=== PATIENT | female | born 1945 | race Caucasian/White ===

== ENCOUNTER → 2018-03-09 13:05 | Outpatient (CLI) | payer MEDICARE, BC, SELFPAY ==
--- NOTE | 2018-03-09 | DI.MG.S_ITS ---
BILATERAL DIGITAL SCREENING MAMMOGRAM 3D/2D WITH CAD: 03/09/2018 CLINICAL: Routine screening. Comparison is made to exam dated: 06/30/2015 mammogram - [facility] The tissue of both breasts is heterogeneously dense. This may lower the sensitivity of mammography. Current study was also evaluated with a Computer Aided Detection (CAD) system. No significant masses, calcifications, or other findings are seen in either breast. There has been no significant interval change. IMPRESSION: NEGATIVE There is no mammographic evidence of malignancy. A 1 year screening mammogram is recommended. This exam was interpreted at Station ID: [id number]. NOTE: For mammograms, a report in lay terms will be sent to the patient. Approximately 15% of breast malignancies will not be visualized mammographically. In the management of a palpable breast mass, a negative mammogram must not discourage biopsy of a clinically suspicious lesion. Electronically Signed By: Kinga montanez/ryley:03/09/2018 16:21:47 letter sent: Normal Exam ACR BI-RADS Category 1: Negative [id number]
== END ==
PROVIDERS: PCP Family Medicine; Visit Provider Nurse Practitioner Family
DX: Z12.31 Encounter for screening mammogram for malignant neoplasm of breast (principal)
CPT/HCPCS: 77063; 77067

== ENCOUNTER 2019-01-16 12:42 | Emergency (ER) | payer MEDICARE, BC, SELFPAY ==
[2019-01-16 12:48] VITALS: BP 174/88; PULSE 80; RESP 14; TEMP 36.4; O2SAT 100
--- NOTE | 2019-01-16 12:53 | DI.RAD.S_ITS ---
PROCEDURE: XR KNEE RT 3V INDICATIONS: fall to bilat knees w/ pain. h/o replacement TECHNIQUE: 3 views of the knee were acquired. COMPARISON: [facility] CAITIE [facility]ila, XR KNEE ARTHRITIC SERIES , 07/17/2018, 8:54. FINDINGS: Bones: Postoperative changes are again evident related to a total right knee arthroplasty. The metallic prosthetic components appear to be properly seated and intact. No periprosthetic fractures or lucencies are evident. No suspicious osseous lesions are identified. Soft tissues: No joint effusion. No suspicious soft tissue calcifications. IMPRESSION: Unchanged appearance of the right knee arthroplasty. No fractures. Dictated by: Ryan Stallworth M.D. on 01/16/2019 at 12:29 Approved by: Ryan Stallworth M.D. on 01/16/2019 at 12:31
--- NOTE | 2019-01-16 12:53 | DI.RAD.S_ITS ---
PROCEDURE: XR KNEE LT 3V INDICATIONS: fall to bilat knees w/ pain. h/o replacement TECHNIQUE: 3 views of the knee were acquired. COMPARISON: [facility] CAITIE [facility], XR KNEE ARTHRITIC SERIES , 07/17/2018, 8:54. FINDINGS: Bones: Expected postoperative changes are again evident related to the total left knee arthroplasty. The metallic prosthetic components are properly positioned without evidence of periprosthetic fracture or lucency. No suspicious osseous lesions are evident. Soft tissues: No joint effusion. No suspicious soft tissue calcifications. IMPRESSION: Unchanged appearance of the total left knee arthroplasty. No fractures. Dictated by: Ryan Stallworth M.D. on 01/16/2019 at 12:31 Approved by: Ryan Stallworth M.D. on 01/16/2019 at 12:32
--- NOTE | 2019-01-16 12:54 | DI.RAD.S_ITS ---
PROCEDURE: XR HAND LT MIN 3V INDICATIONS: Left hand pain after fall. TECHNIQUE: 3 views of the hand(s) acquired. COMPARISON: [facility], CR, XR WRIST 3+ VIEWS BILATERAL, 12/13/2018, 11:10. FINDINGS: Bones: Expected postoperative changes of the distal radius are again evident. The orthopedic hardware is intact and unchanged. The alignment of the distal radius is also unchanged. No new or acute fractures of the left hand are evident. Prominent degenerative changes of the left hand are most pronounced involving the basal joint of the thumb, not significantly progressed. Soft tissues: No suspicious soft tissue calcifications. Moderate soft tissue swelling overlying the dorsal margins of the metacarpophalangeal joints is present on the lateral view. IMPRESSION: 1. No acute osseous abnormality of the left hand. 2. Degenerative and postoperative changes of the left hip have not significantly progressed. Dictated by: Ryan Stallworth M.D. on 01/16/2019 at 12:27 Approved by: Ryan Stallworth M.D. on 01/16/2019 at 12:29
--- NOTE | 2019-01-16 13:30 | DI.CT.S_ITS ---
PROCEDURE: CT HEAD/BRAIN WO CON INDICATIONS: glf, unsure what happened TECHNIQUE: Noncontrast 4.5 mm thick angled axial sections acquired from the foramen magnum to the vertex, with coronal and sagittal reformats. For radiation dose reduction, the following was used: automated exposure control, adjustment of mA and/or kV according to patient size. COMPARISON: None. FINDINGS: Image quality: Diagnostic. CSF spaces: Basal cisterns are patent. No extra-axial fluid collections. Ventricles are prominent in size with corresponding parenchymal volume loss. Brain: No midline shift. No intracranial masses or hemorrhage. Roy-white matter interface is normal. Subtle areas of low attenuation are seen within the periventricular and deep white matter of the supratentorial brain. Old basal ganglia areas of ischemia probably are present (left greater than right). Skull and face: Calvarium and visualized facial bones are intact, without suspicious lesions. Sinuses: Visualized sinuses and mastoids are clear. IMPRESSION: 1. No acute intracranial hemorrhage. 2. Moderate chronic small vessel ischemic changes and parenchymal volume loss. Dictated by: Ryan Stallworth M.D. on 01/16/2019 at 12:58 Approved by: Ryan Stallworth M.D. on 01/16/2019 at 13:04
[2019-01-16] MEDS: TET,DIPH,PERTUSS(ACELL),VAC/PF 0.5 ML SYRINGE IM (13:48)
[2019-01-16] MEDS: ACETAMINOPHEN 325 MG TABLET 650 MG PO (14:45)
--- NOTE | 2019-01-16 14:46 | ED.FALL ---
HPI - Fall <KAMRON Oneill - Last Filed: 01/16/19 20:35> General Chief Complaint: Fall Stated Complaint: fall, knee pain bilat, left hand and nose Time Seen by Provider: 01/16/19 13:20 Source: patient Mode of arrival: ambulatory Limitations: no limitations History of Present Illness HPI Narrative: The patient is a 73-year-old female nonsmoker with history of hypertension who presents with a chief complaint of a ground level fall. She states that she had a trip and fall. She complains of bilateral knee pain, and is very concerned as she has had bilateral knee replacements. She also complains of an abrasion of her nose. As well as left hand pain. She states she was able to ambulate in today. She did not lose consciousness. She states she thinks she hit her head, given the abrasion on her nose but she is not sure. She has not taken anything for the pain. She denies any neck or back pain. She denies any fevers nausea vomiting chest pain or shortness of breath. She is unsure of her last tetanus. Related Data Home Medications Medication Instructions Recorded Confirmed levothyroxine 150 mcg PO DAILY #0 12/19/12 01/16/19 Calcium 1 tab PO DAILY 01/16/19 01/16/19 Probiotic 1 cap PO DAILY 01/16/19 01/16/19 Vitamin C 1 tab PO DAILY 01/16/19 01/16/19 Vitamin D3 1 cap PO DAILY 01/16/19 01/16/19 abaloparatide [Tymlos] 1 dose SUBCUT DAILY 01/16/19 01/16/19 amlodipine 5 mg PO QPM 01/16/19 01/16/19 multivitamin 1 tab PO DAILY 01/16/19 01/16/19 Allergies Allergy/AdvReac Type Severity Reaction Status Date / Time ciprofloxacin [From CIPRO] Allergy Intermediate Verified 01/16/19 12:53 tetracycline [TETRACYCLINE] Allergy Intermediate Verified 01/16/19 12:53 epinephrine [EPINEPHRINE] Allergy Unknown Verified 01/16/19 12:53 Jhansyt-Osj-Xsl Reductase Allergy Unknown HEART Verified 01/16/19 12:53 Inhibitor ATTACK [[id number] REDUCTASE SYMPTOMS INHIBITOR] VALERIAN ROOT AdvReac Unknown Uncoded 10/04/17 12:26 Review of Systems <KAMRON Oneill - Last Filed: 01/16/19 20:35> Review of Systems GENERAL: Denies chills, fatigue, malaise, fever, sweats. HEENT: See HPI RESPIRATORY: Denies dyspnea, cough, wheezing, hemoptysis, sputum. CARDIOVASCULAR: Denies chest pain, palpitations, orthopnea, edema, GASTROINTESTINAL: Denies nausea, vomiting, abdominal pain, diarrhea, constipation, melena. : Denies dysuria, frequency, incontinence, hematuria, urinary retention. MUSCULOSKELETAL: See HPI SKIN: Denies rash, skin lesions, or other NEUROLOGIC: Denies weakness, headache, numbness, change in speech, confusion, seizures, incoordination. PSYCHIATRIC: No concerning psychosocial issues. 12 point review of systems is negative except for those stated above Exam <Franci CLAUDIA ToneyP- - Last Filed: 01/16/19 20:35> Narrative Exam Narrative: GENERAL: This is a well-nourished, well-developed patient, sitting on stretcher no acute distress HEAD: Atraumatic. Normocephalic. No temporal or scalp tenderness. EYES: Pupils equal round and reactive. Extraocular motions intact. No scleral icterus. No injection or drainage. ENT: Nose without bleeding, purulent drainage or septal hematoma. Throat without erythema, tonsillar hypertrophy or exudate. Uvula midline. Airway patent. NECK: Trachea midline. No JVD or lymphadenopathy. Supple, nontender, no meningeal signs. CARDIOVASCULAR: Regular rate and rhythm RESPIRATORY: Clear to auscultation. Breath sounds equal bilaterally. No wheezes, rales, or rhonchi. No cough. No increased respiratory effort. No accessory muscle use. GASTROINTESTINAL: Abdomen soft, non-tender, nondistended. No hepato-splenomegaly, or palpable masses. No guarding. Active bowel sounds all 4 quadrants. EXTREMITIES: Pain to palpation bilateral knees. Positive pedal pulses bilaterally. Pain to palpation left hand. No pain to palpation left wrist. No snuffbox tenderness. Capillary refill less than 2 seconds left fingers. BACK: Nontender without deformity or crepitance. No flank tenderness. No pain to CT or L-spine palpation NEURO: AOx3. Strength is equal upper and lower extremities bilaterally. SKIN: 0.5 cm abrasion noted on bridge of nose Initial Vital Signs Initial Vital Signs: Vital Signs Temperature 97.6 F 01/16/19 12:48 Pulse Rate 80 01/16/19 12:48 Respiratory Rate 14 01/16/19 12:48 Blood Pressure 174/88 H 01/16/19 12:48 Pulse Oximetry 100 01/16/19 12:48 <Franci Blanco DO - Last Filed: 01/23/19 08:22> Initial Vital Signs Initial Vital Signs: Vital Signs Temperature 97.6 F 01/16/19 12:48 Pulse Rate 80 01/16/19 12:48 Respiratory Rate 14 01/16/19 12:48 Blood Pressure 174/88 H 01/16/19 12:48 Pulse Oximetry 100 01/16/19 12:48 PFSH <KAMRON Oneill - Last Filed: 01/16/19 20:35> Surgical History (Updated 01/16/19 @ 20:31 by KAMRON Oneill) History of bilateral knee replacement (Acute) Social History Smoking Status: Never smoker Social History Smoking Status: Never smoker Scores <KAMRON Oneill - Last Filed: 01/16/19 20:35> GCS [place] coma scale eye opening: Spontaneous Daniel coma scale verbal response: Orientated [place] coma scale motor response: Obey commands Daniel coma scale total score: 15 Nexus Score for C-Spine Focal Neurologic deficit present: No Midline spinal tenderness present: No Altered level of conciousness present: No Intoxication present: No Distracting Injury Present: No Nexus Criteria for C-spine: 0 Course <KAMRON Oneill - Last Filed: 01/16/19 20:35> Orders Ordered: Discontinued Medications Acetaminophen (Tylenol) 650 mg PO NOW ONE Stop: 01/16/19 14:31 Last Admin: 01/16/19 14:45 Dose: 650 mg Diphtheria/Tetanus/Acell Pertussis (Adacel) 0.5 ml IM .ONCE ONE Stop: 01/16/19 13:31 Last Admin: 01/16/19 13:48 Dose: 0.5 ml Vital Signs - 8 hr 01/16/19 12:48 01/16/19 14:56 Temperature 97.6 F Pulse Rate 80 73 Respiratory Rate 14 20 Blood Pressure 174/88 H 139/78 Pulse Oximetry 100 100 <Franci Blanco DO - Last Filed: 01/23/19 08:22> Orders Ordered: Discontinued Medications Acetaminophen (Tylenol) 650 mg PO NOW ONE Stop: 01/16/19 14:31 Last Admin: 01/16/19 14:45 Dose: 650 mg Diphtheria/Tetanus/Acell Pertussis (Adacel) 0.5 ml IM .ONCE ONE Stop: 01/16/19 13:31 Last Admin: 01/16/19 13:48 Dose: 0.5 ml Vital Signs - 8 hr 01/16/19 12:48 01/16/19 14:56 Temperature 97.6 F Pulse Rate 80 73 Respiratory Rate 14 20 Blood Pressure 174/88 H 139/78 Pulse Oximetry 100 100 MDM - Fall <KAMRON Oneill - Last Filed: 01/16/19 20:35> Imaging Data CT scan - head: Radiologist's impression: Valerie Wang 73 F 1945 [place] [address] CT Scan Report Signed Patient: Valerie Wang FMR#: [id number] : 1945cct:[id number] Age/Sex: 73 / FDate of Service: 01/16/19 Loc: ED Accession Number: [id number] Procedure: CT head/brain wo con Ordering Provider: Franci Toney PROCEDURE: CT HEAD/BRAIN WO CON INDICATIONS: glf, unsure what happened TECHNIQUE: Noncontrast 4.5 mm thick angled axial sections acquired from the foramen magnum to the vertex, with coronal and sagittal reformats. For radiation dose reduction, the following was used: automated exposure control, adjustment of mA and/or kV according to patient size. COMPARISON: None. FINDINGS: Image quality: Diagnostic. CSF spaces: Basal cisterns are patent. No extra-axial fluid collections. Ventricles are prominent in size with corresponding parenchymal volume loss. Brain: No midline shift. No intracranial masses or hemorrhage. Roy-white matter interface is normal. Subtle areas of low attenuation are seen within the periventricular and deep white matter of the supratentorial brain. Old basal ganglia areas of ischemia probably are present (left greater than right). Skull and face: Calvarium and visualized facial bones are intact, without suspicious lesions. Sinuses: Visualized sinuses and mastoids are clear. IMPRESSION: 1. No acute intracranial hemorrhage. 2. Moderate chronic small vessel ischemic changes and parenchymal volume loss. Dictated by: Ryan Stallworth M.D. on 01/16/2019 at 12:58 Approved by: Ryan Stallworth M.D. on 01/16/2019 at 13:04 Hand x-ray: Radiologist's impression: Dawn Wangly Preeti 73 F [address] [address] XRay Report Signed Patient: Valerie Wang FMR#: [id number] : 1945cct:[id number] Age/Sex: 73 / FDate of Service: 01/16/19 Loc: ED Accession Number: [id number] Procedure: XR hand LT min 3V Ordering Provider: Franci Blanco D.O. PROCEDURE: XR HAND LT MIN 3V INDICATIONS: Left hand pain after fall. TECHNIQUE: 3 views of the hand(s) acquired. COMPARISON: [facility], , XR WRIST 3+ VIEWS BILATERAL, 12/13/2018, 11:10. FINDINGS: Bones: Expected postoperative changes of the distal radius are again evident. The orthopedic hardware is intact and unchanged. The alignment of the distal radius is also unchanged. No new or acute fractures of the left hand are evident. Prominent degenerative changes of the left hand are most pronounced involving the basal joint of the thumb, not significantly progressed. Soft tissues: No suspicious soft tissue calcifications. Moderate soft tissue swelling overlying the dorsal margins of the metacarpophalangeal joints is present on the lateral view. IMPRESSION: 1. No acute osseous abnormality of the left hand. 2. Degenerative and postoperative changes of the left hip have not significantly progressed. Dictated by: Ryan Stallworth M.D. on 01/16/2019 at 12:27 Approved by: Ryan Stallworth M.D. on 01/16/2019 at 12:29 Knee x-ray: Radiologist's impression: [address] [address] XRay Report Signed Patient: Dawn Wangly FMR#: [id number] : 4Acct:[id number] Age/Sex: 73 / FDate of Service: 01/16/19 Loc: ED Accession Number: [id number] Procedure: XR knee RT 3V Ordering Provider: Franci Blanco D.O. PROCEDURE: XR KNEE RT 3V INDICATIONS: fall to bilat knees w/ pain. h/o replacement TECHNIQUE: 3 views of the knee were acquired. COMPARISON: [facility] , XR KNEE ARTHRITIC SERIES , 07/17/2018, 8:54. FINDINGS: Bones: Postoperative changes are again evident related to a total right knee arthroplasty. The metallic prosthetic components appear to be properly seated and intact. No periprosthetic fractures or lucencies are evident. No suspicious osseous lesions are identified. Soft tissues: No joint effusion. No suspicious soft tissue calcifications. IMPRESSION: Unchanged appearance of the right knee arthroplasty. No fractures. Dictated by: Ryan Stallworth M.D. on 01/16/2019 at 12:29 Approved by: Ryan Stallworth M.D. on 01/16/2019 at 12:31 Knee x-ray left: Radiologist's impression: [place] [address] XRay Report Signed Patient: Valerie Wang R#: [id number] : 4Acct:[id number] Age/Sex: 73 / FDate of Service: 01/16/19 Loc: ED Accession Number: [id number] Procedure: XR knee LT 3V Ordering Provider: Franci Blanco D.O. PROCEDURE: XR KNEE LT 3V INDICATIONS: fall to bilat knees w/ pain. h/o replacement TECHNIQUE: 3 views of the knee were acquired. COMPARISON: [facility] , XR KNEE ARTHRITIC SERIES , 07/17/2018, 8:54. FINDINGS: Bones: Expected postoperative changes are again evident related to the total left knee arthroplasty. The metallic prosthetic components are properly positioned without evidence of periprosthetic fracture or lucency. No suspicious osseous lesions are evident. Soft tissues: No joint effusion. No suspicious soft tissue calcifications. IMPRESSION: Unchanged appearance of the total left knee arthroplasty. No fractures. Dictated by: Ryan Stallworth M.D. on 01/16/2019 at 12:31 Approved by: Ryan Stallworth M.D. on 01/16/2019 at 12:32 [facility] Narrative Medical decision making narrative: The patient is a 73-year-old female who presents after ground level fall with bilateral knee pain, hand pain as well as an abrasion to her nose. Given that she was unclear of whether not she hit her head combined with her age, I did obtain a head CT which was negative. She also had bilateral knee x-rays which were negative and a hand x-ray which were negative. She was given a tetanus in the emergency department. I cleared her C-spine through nexus criteria. The patient is very relieved that she has no obvious fractures on her knees. I discussed at length follow up with PCP. Discussed point back to the ER for any acute concerns such as confusion, saddle anesthesia, incontinence of bowel or incontinence of bladder. Patient has no questions or concerns upon discharge. Discharge Plan Departure Patient Disposition: Home Clinical Impression: Fall from ground level, Abrasion Acute knee pain Qualifiers: Laterality: bilateral Qualified Code(s): M25.561 - Pain in right knee Hand pain Qualifiers: Laterality: left Qualified Code(s): M79.642 - Pain in left hand Discharge Date/Time: 01/16/19 14:57 Interventions: ED Discharge Assessment Last Done: 01/16/19 14:56 Instructions: How To Perform RICE (Rest, Ice, Compress, Elevate), How to Prevent Falls, DI for Abrasion, DI for Knee Pain, DI for Hand Pain Activity Restrictions/Additional Instructions: Your head CT, hand x-ray and knee x-rays all came back normal today. Please use [id number] medications as needed and able Please follow up with primary care provider. I also suggest rest ice compression elevation. Please come back to the emergency department for any acute concerns such as confusion, chest pain shortness of breath concern of heart attack or stroke. Prescriptions: No Action levothyroxine 150 MCG tablet 150 mcg PO DAILY Qty: 0 RF: 0 amlodipine 5 mg tablet 5 mg PO QPM RF: 0 Tymlos 80 mcg (3,120 mcg/1.56 mL) pen injector 1 dose subcut DAILY RF: 0 multivitamin Tablet 1 tab PO DAILY RF: 0 Calcium 1 tab PO DAILY RF: 0 Probiotic 1 cap PO DAILY RF: 0 Vitamin C 1 tab PO DAILY RF: 0 Vitamin D3 1 cap PO DAILY RF: 0 Referrals: Jesse Fonseca MD [Primary Care Provider] - <Franci Blanco DO - Last Filed: 01/23/19 08:22> Cosign ED Attending Cosignature Attestation: I was immediately available in the department for consultation. This documentation has been reviewed and I agree with assessment and plan. Supervised by Franci Blanco DO
--- NOTE | 2019-01-16 14:49 | ED_ITS ---
HPI - Fall <KAMRON Oneill - Last Filed: 01/16/19 20:35> General Chief Complaint: Fall Stated Complaint: fall, knee pain bilat, left hand and nose Time Seen by Provider: 01/16/19 13:20 Source: patient Mode of arrival: ambulatory Limitations: no limitations History of Present Illness HPI Narrative: The patient is a 73-year-old female nonsmoker with history of hypertension who presents with a chief complaint of a ground level fall. She states that she had a trip and fall. She complains of bilateral knee pain, and is very concerned as she has had bilateral knee replacements. She also complains of an abrasion of her nose. As well as left hand pain. She states she was able to ambulate in today. She did not lose consciousness. She states she thinks she hit her head, given the abrasion on her nose but she is not sure. She has not taken anything for the pain. She denies any neck or back pain. She denies any fevers nausea vomiting chest pain or shortness of breath. She is unsure of her last tetanus. Related Data Home Medications Medication Instructions Recorded Confirmed levothyroxine 150 mcg PO DAILY #0 12/19/12 01/16/19 Calcium 1 tab PO DAILY 01/16/19 01/16/19 Probiotic 1 cap PO DAILY 01/16/19 01/16/19 Vitamin C 1 tab PO DAILY 01/16/19 01/16/19 Vitamin D3 1 cap PO DAILY 01/16/19 01/16/19 abaloparatide [Tymlos] 1 dose SUBCUT DAILY 01/16/19 01/16/19 amlodipine 5 mg PO QPM 01/16/19 01/16/19 multivitamin 1 tab PO DAILY 01/16/19 01/16/19 Allergies Allergy/AdvReac Type Severity Reaction Status Date / Time ciprofloxacin [From CIPRO] Allergy Intermediate Verified 01/16/19 12:53 tetracycline [TETRACYCLINE] Allergy Intermediate Verified 01/16/19 12:53 epinephrine [EPINEPHRINE] Allergy Unknown Verified 01/16/19 12:53 Sxdnqjn-Ayc-Lnk Reductase Allergy Unknown HEART Verified 01/16/19 12:53 Inhibitor ATTACK [[id number] REDUCTASE SYMPTOMS INHIBITOR] VALERIAN ROOT AdvReac Unknown Uncoded 10/04/17 12:26 Review of Systems <KAMRON Oneill - Last Filed: 01/16/19 20:35> Review of Systems GENERAL: Denies chills, fatigue, malaise, fever, sweats. HEENT: See HPI RESPIRATORY: Denies dyspnea, cough, wheezing, hemoptysis, sputum. CARDIOVASCULAR: Denies chest pain, palpitations, orthopnea, edema, GASTROINTESTINAL: Denies nausea, vomiting, abdominal pain, diarrhea, constipation, melena. : Denies dysuria, frequency, incontinence, hematuria, urinary retention. MUSCULOSKELETAL: See HPI SKIN: Denies rash, skin lesions, or other NEUROLOGIC: Denies weakness, headache, numbness, change in speech, confusion, seizures, incoordination. PSYCHIATRIC: No concerning psychosocial issues. 12 point review of systems is negative except for those stated above Exam <Franci CLAUDIA ToneyP- - Last Filed: 01/16/19 20:35> Narrative Exam Narrative: GENERAL: This is a well-nourished, well-developed patient, sitting on stretcher no acute distress HEAD: Atraumatic. Normocephalic. No temporal or scalp tenderness. EYES: Pupils equal round and reactive. Extraocular motions intact. No scleral icterus. No injection or drainage. ENT: Nose without bleeding, purulent drainage or septal hematoma. Throat without erythema, tonsillar hypertrophy or exudate. Uvula midline. Airway patent. NECK: Trachea midline. No JVD or lymphadenopathy. Supple, nontender, no meningeal signs. CARDIOVASCULAR: Regular rate and rhythm RESPIRATORY: Clear to auscultation. Breath sounds equal bilaterally. No wheezes, rales, or rhonchi. No cough. No increased respiratory effort. No accessory muscle use. GASTROINTESTINAL: Abdomen soft, non-tender, nondistended. No hepato- splenomegaly, or palpable masses. No guarding. Active bowel sounds all 4 quadrants. EXTREMITIES: Pain to palpation bilateral knees. Positive pedal pulses bilaterally. Pain to palpation left hand. No pain to palpation left wrist. No snuffbox tenderness. Capillary refill less than 2 seconds left fingers. BACK: Nontender without deformity or crepitance. No flank tenderness. No pain to CT or L-spine palpation NEURO: AOx3. Strength is equal upper and lower extremities bilaterally. SKIN: 0.5 cm abrasion noted on bridge of nose Initial Vital Signs Initial Vital Signs: Vital Signs Temperature 97.6 F 01/16/19 12:48 Pulse Rate 80 01/16/19 12:48 Respiratory Rate 14 01/16/19 12:48 Blood Pressure 174/88 H 01/16/19 12:48 Pulse Oximetry 100 01/16/19 12:48 <Franci Blanco DO - Last Filed: 01/23/19 08:22> Initial Vital Signs Initial Vital Signs: Vital Signs Temperature 97.6 F 01/16/19 12:48 Pulse Rate 80 01/16/19 12:48 Respiratory Rate 14 01/16/19 12:48 Blood Pressure 174/88 H 01/16/19 12:48 Pulse Oximetry 100 01/16/19 12:48 PFSH <KAMRON Oneill - Last Filed: 01/16/19 20:35> Surgical History (Updated 01/16/19 @ 20:31 by KAMRON Oneill) History of bilateral knee replacement (Acute) Social History Smoking Status: Never smoker Social History Smoking Status: Never smoker Scores <KAMRON Oneill - Last Filed: 01/16/19 20:35> GCS Daniel coma scale eye opening: Spontaneous [place] coma scale verbal response: Orientated Daniel coma scale motor response: Obey commands [place] coma scale total score: 15 Nexus Score for C-Spine Focal Neurologic deficit present: No Midline spinal tenderness present: No Altered level of conciousness present: No Intoxication present: No Distracting Injury Present: No Nexus Criteria for C-spine: 0 Course <KAMRON Oneill - Last Filed: 01/16/19 20:35> Orders Ordered: Discontinued Medications Acetaminophen (Tylenol) 650 mg PO NOW ONE Stop: 01/16/19 14:31 Last Admin: 01/16/19 14:45 Dose: 650 mg Diphtheria/Tetanus/Acell Pertussis (Adacel) 0.5 ml IM .ONCE ONE Stop: 01/16/19 13:31 Last Admin: 01/16/19 13:48 Dose: 0.5 ml Vital Signs - 8 hr 01/16/19 12:48 01/16/19 14:56 Temperature 97.6 F Pulse Rate 80 73 Respiratory Rate 14 20 Blood Pressure 174/88 H 139/78 Pulse Oximetry 100 100 <Franci Blanco DO - Last Filed: 01/23/19 08:22> Orders Ordered: Discontinued Medications Acetaminophen (Tylenol) 650 mg PO NOW ONE Stop: 01/16/19 14:31 Last Admin: 01/16/19 14:45 Dose: 650 mg Diphtheria/Tetanus/Acell Pertussis (Adacel) 0.5 ml IM .ONCE ONE Stop: 01/16/19 13:31 Last Admin: 01/16/19 13:48 Dose: 0.5 ml Vital Signs - 8 hr 01/16/19 12:48 01/16/19 14:56 Temperature 97.6 F Pulse Rate 80 73 Respiratory Rate 14 20 Blood Pressure 174/88 H 139/78 Pulse Oximetry 100 100 MDM - Fall <KAMRON Oneill - Last Filed: 01/16/19 20:35> Imaging Data CT scan - head: Radiologist's impression: Valerie Wang 73 [address] 1945 [place] [address] CT Scan Report Signed Patient: Valerie Wang FMR#: [id number] : 1945cct:[id number] Age/Sex: 73 / FDate of Service: 01/16/19 Loc: ED Accession Number: [id number] Procedure: CT head/brain wo con Ordering Provider: Franci Toney PROCEDURE: CT HEAD/BRAIN WO CON INDICATIONS: glf, unsure what happened TECHNIQUE: Noncontrast 4.5 mm thick angled axial sections acquired from the foramen magnum to the vertex, with coronal and sagittal reformats. For radiation dose reduction, the following was used: automated exposure control, adjustment of mA and/or kV according to patient size. COMPARISON: None. FINDINGS: Image quality: Diagnostic. CSF spaces: Basal cisterns are patent. No extra-axial fluid collections. Ventricles are prominent in size with corresponding parenchymal volume loss. Brain: No midline shift. No intracranial masses or hemorrhage. Roy-white matter interface is normal. Subtle areas of low attenuation are seen within the periventricular and deep white matter of the supratentorial brain. Old basal ganglia areas of ischemia probably are present (left greater than right). Skull and face: Calvarium and visualized facial bones are intact, without suspicious lesions. Sinuses: Visualized sinuses and mastoids are clear. IMPRESSION: 1. No acute intracranial hemorrhage. 2. Moderate chronic small vessel ischemic changes and parenchymal volume loss. Dictated by: Ryan Stallworth M.D. on 01/16/2019 at 12:58 Approved by: Ryan Stallworth M.D. on 01/16/2019 at 13:04 Hand x-ray: Radiologist's impression: Dawn Wangly Preeti 73 F [address] [address] XRay Report Signed Patient: Valerie Wang FMR#: [id number] : 1945cct:[id number] Age/Sex: 73 / FDate of Service: 01/16/19 Loc: ED Accession Number: [id number] Procedure: XR hand LT min 3V Ordering Provider: Franci Blanco D.O. PROCEDURE: XR HAND LT MIN 3V INDICATIONS: Left hand pain after fall. TECHNIQUE: 3 views of the hand(s) acquired. COMPARISON: [facility], , XR WRIST 3+ VIEWS BILATERAL, 12/13/2018, 11:10. FINDINGS: Bones: Expected postoperative changes of the distal radius are again evident. The orthopedic hardware is intact and unchanged. The alignment of the distal radius is also unchanged. No new or acute fractures of the left hand are evident. Prominent degenerative changes of the left hand are most pronounced involving the basal joint of the thumb, not significantly progressed. Soft tissues: No suspicious soft tissue calcifications. Moderate soft tissue swelling overlying the dorsal margins of the metacarpophalangeal joints is present on the lateral view. IMPRESSION: 1. No acute osseous abnormality of the left hand. 2. Degenerative and postoperative changes of the left hip have not significantly progressed. Dictated by: Ryan Stallworth M.D. on 01/16/2019 at 12:27 Approved by: Ryan Stallworth M.D. on 01/16/2019 at 12:29 Knee x-ray: Radiologist's impression: [address] [address] XRay Report Signed Patient: Dawn Wangly FMR#: [id number] : 4Acct:[id number] Age/Sex: 73 / FDate of Service: 01/16/19 Loc: ED Accession Number: [id number] Procedure: XR knee RT 3V Ordering Provider: Franci Blanco D.O. PROCEDURE: XR KNEE RT 3V INDICATIONS: fall to bilat knees w/ pain. h/o replacement TECHNIQUE: 3 views of the knee were acquired. COMPARISON: [facility] , XR KNEE ARTHRITIC SERIES , 07/17/2018, 8:54. FINDINGS: Bones: Postoperative changes are again evident related to a total right knee arthroplasty. The metallic prosthetic components appear to be properly seated and intact. No periprosthetic fractures or lucencies are evident. No suspicious osseous lesions are identified. Soft tissues: No joint effusion. No suspicious soft tissue calcifications. IMPRESSION: Unchanged appearance of the right knee arthroplasty. No fractures. Dictated by: Ryan Stallworth M.D. on 01/16/2019 at 12:29 Approved by: Ryan Stallworth M.D. on 01/16/2019 at 12:31 Knee x-ray left: Radiologist's impression: [place] [address] XRay Report Signed Patient: Valerie Wang R#: [id number] : 4Acct:[id number] Age/Sex: 73 / FDate of Service: 01/16/19 Loc: ED Accession Number: [id number] Procedure: XR knee LT 3V Ordering Provider: Franci Blanco D.O. PROCEDURE: XR KNEE LT 3V INDICATIONS: fall to bilat knees w/ pain. h/o replacement TECHNIQUE: 3 views of the knee were acquired. COMPARISON: [facility] , XR KNEE ARTHRITIC SERIES , 07/17/2018, 8:54. FINDINGS: Bones: Expected postoperative changes are again evident related to the total left knee arthroplasty. The metallic prosthetic components are properly positioned without evidence of periprosthetic fracture or lucency. No suspicious osseous lesions are evident. Soft tissues: No joint effusion. No suspicious soft tissue calcifications. IMPRESSION: Unchanged appearance of the total left knee arthroplasty. No fractures. Dictated by: Ryan Stallworth M.D. on 01/16/2019 at 12:31 Approved by: Ryan Stallworth M.D. on 01/16/2019 at 12:32 [facility] Narrative Medical decision making narrative: The patient is a 73-year-old female who presents after ground level fall with bilateral knee pain, hand pain as well as an abrasion to her nose. Given that she was unclear of whether not she hit her head combined with her age, I did obtain a head CT which was negative. She also had bilateral knee x-rays which were negative and a hand x-ray which were negative. She was given a tetanus in the emergency department. I cleared her C-spine through nexus criteria. The patient is very relieved that she has no obvious fractures on her knees. I discussed at length follow up with PCP. Discussed point back to the ER for any acute concerns such as confusion, saddle anesthesia, incontinence of bowel or incontinence of bladder. Patient has no questions or concerns upon discharge. Discharge Plan Departure Patient Disposition: Home Clinical Impression: Fall from ground level, Abrasion Acute knee pain Qualifiers: Laterality: bilateral Qualified Code(s): M25.561 - Pain in right knee Hand pain Qualifiers: Laterality: left Qualified Code(s): M79.642 - Pain in left hand Discharge Date/Time: 01/16/19 14:57 Interventions: ED Discharge Assessment Last Done: 01/16/19 14:56 Instructions: How To Perform RICE (Rest, Ice, Compress, Elevate), How to Prevent Falls, DI for Abrasion, DI for Knee Pain, DI for Hand Pain Activity Restrictions/Additional Instructions: Your head CT, hand x-ray and knee x-rays all came back normal today. Please use [id number] medications as needed and able Please follow up with primary care provider. I also suggest rest ice compression elevation. Please come back to the emergency department for any acute concerns such as confusion, chest pain shortness of breath concern of heart attack or stroke. Prescriptions: No Action levothyroxine 150 MCG tablet 150 mcg PO DAILY Qty: 0 RF: 0 amlodipine 5 mg tablet 5 mg PO QPM RF: 0 Tymlos 80 mcg (3,120 mcg/1.56 mL) pen injector 1 dose subcut DAILY RF: 0 multivitamin Tablet 1 tab PO DAILY RF: 0 Calcium 1 tab PO DAILY RF: 0 Probiotic 1 cap PO DAILY RF: 0 Vitamin C 1 tab PO DAILY RF: 0 Vitamin D3 1 cap PO DAILY RF: 0 Referrals: Jesse Fonseca MD [Primary Care Provider] - <Franci Blanco DO - Last Filed: 01/23/19 08:22> Cosign ED Attending Cosignature Attestation: I was immediately available in the department for consultation. This documentation has been reviewed and I agree with assessment and plan. Supervised by Franci Blanco DO
[2019-01-16 14:56] VITALS: BP 139/78; PULSE 73; RESP 20; O2SAT 100
== END 2019-01-16 14:57 | disposition home or self-care (01) ==
PROVIDERS: Emergency Provider Nurse Practitioner Family; PCP Family Medicine
DX: M25.561 Pain in right knee (principal); M25.562 Pain in left knee; M79.642 Pain in left hand; S00.31XA Abrasion of nose, initial encounter; S09.90XA Unspecified injury of head, initial encounter; W01.0XXA Fall on same level from slipping, tripping and stumbling without subsequent striking against object, initial encounter; Z23 Encounter for immunization
CPT/HCPCS: 70450; 73130; 73562; 90472; 99283; 99284; 90715

== ENCOUNTER → 2019-04-02 10:48 | Outpatient (CLI) | payer MEDICARE, BC, SELFPAY ==
--- NOTE | 2019-04-02 | DI.RAD.S_ITS ---
PROCEDURE: XR CHEST 2V INDICATIONS: BRONCHITIS/PERSISTING DRY COUGH/CHEST CONGESTION TECHNIQUE: 2 views of the chest were acquired. COMPARISON: None. FINDINGS: Surgical changes and devices: None. Lungs and pleura: Left basilar opacities are likely scars or atelectasis. No pleural effusions or pneumothorax. Mediastinum: Mediastinal contours are normal. Heart size is normal. Bones and chest wall: No suspicious bony abnormalities. Soft tissues appear unremarkable. IMPRESSION: Left basilar scars or atelectasis. Dictated by: Balaji Mejias M.D. on 04/02/2019 at 13:57 Approved by: Balaji Mejias M.D. on 04/02/2019 at 13:58
== END ==
PROVIDERS: PCP Family Medicine; Visit Provider Family Medicine
DX: J40 Bronchitis, not specified as acute or chronic (principal); R05 Cough; R09.89 Other specified symptoms and signs involving the circulatory and respiratory systems
CPT/HCPCS: 71046

== ENCOUNTER 2019-04-15 10:51 | Emergency (ER) | payer MEDICARE, BC, SELFPAY ==
[2019-04-15 11:02] VITALS: BP 146/75; PULSE 78; RESP 12; TEMP 36.6; O2SAT 99
--- NOTE | 2019-04-15 11:22 | ED_ITS ---
HPI - Skin/Abscess/Foreign Bdy General Chief complaint: Skin/Abscess/Foreign Body Stated complaint: issue with right lower leg,hot/swollen Time Seen by Provider: 04/15/19 11:06 Source: patient Mode of arrival: Ambulatory Limitations: no limitations History of Present Illness HPI narrative: 73-year-old female with known varicose veins here for evaluation of redness and warmth to her right lower extremity. Patient states that on Monday she went to her chiropractor. States that her chiropractor spent quite a bit of time ?massaging ?the veins in her lower extremities. She states that on Monday she noticed redness and warmth to the front of her right lower extremity. No pain. She states that she kept it elevated. She did put ice on it. Has been using topical cortisone cream because it was itching. She thinks that today it has actually improved from Monday. She denies any fevers. No breaks in the skin. Related Data Home Medications Medication Instructions Recorded Confirmed levothyroxine 150 mcg PO DAILY #0 12/19/12 04/15/19 Calcium 1 tab PO DAILY 01/16/19 01/16/19 Probiotic 1 cap PO DAILY 01/16/19 01/16/19 Vitamin C 1 tab PO DAILY 01/16/19 01/16/19 Vitamin D3 1 cap PO DAILY 01/16/19 01/16/19 abaloparatide [Tymlos] 1 dose SUBCUT 01/16/19 01/16/19 amlodipine 5 mg PO QPM 01/16/19 04/15/19 multivitamin 1 tab PO DAILY 01/16/19 01/16/19 albuterol sulfate 1 puff INHALATION PRN PRN 04/15/19 04/15/19 Previous Rx's Medication Instructions Recorded cephalexin [Keflex] 500 mg PO QID 5 Days #20 cap 04/15/19 Allergies Allergy/AdvReac Type Severity Reaction Status Date / Time ciprofloxacin [From CIPRO] Allergy Intermediate Verified 01/16/19 12:53 tetracycline [TETRACYCLINE] Allergy Intermediate Verified 01/16/19 12:53 epinephrine [EPINEPHRINE] Allergy Unknown Verified 01/16/19 12:53 Yhncwlm-Dme-Qsc Reductase Allergy Unknown HEART Verified 01/16/19 12:53 Inhibitor ATTACK [CTMOSMO-LGX-YPG REDUCTASE SYMPTOMS INHIBITOR] VALERIAN ROOT AdvReac Unknown Uncoded 10/04/17 12:26 Review of Systems Constitutional Constitutional: Denies fatigue and Denies fever(s) Musculoskeletal Musculoskeletal: Denies myalgias and Denies arthralgias Integumentary/Breasts Comments: Redness and warmth to right lower extremity Neurologic Neurologic: Denies behavioral changes Psychiatric Psychiatric: Denies behavioral changes Endocrine Endocrine: Denies fatigue Hematologic/Lymphatic Hematologic/Lymphatic: Denies easy bleeding and Denies easy bruising Patient History Medical History Hypothyroid (Acute) Surgical History (Updated 01/16/19 @ 20:31 [facility] History of bilateral knee replacement (Acute) Social History Smoking Status: Never smoker alcohol intake frequency: 0-2 drinks per day Substance Use Type: does not use Exam Initial Vital Signs Initial Vital Signs: Vital Signs Temperature 97.8 F 04/15/19 11:02 Pulse Rate 78 04/15/19 11:02 Respiratory Rate 12 04/15/19 11:02 Blood Pressure 146/75 H 04/15/19 11:02 Pulse Oximetry 99 04/15/19 11:02 Const General: cooperative and comfortable Orientation: alert, awake and oriented x3 HENMT Head: normal to inspection and normocephalic Resp Effort & Inspection: normal respiratory effort Auscultation: clear to auscultation bilaterally Cardio Rate: regular rate Rhythm: regular rhythm Pulses: dorsalis pedis present on the right GI Inspection: non-distended Palpation: soft Skin Other: Palm size area of redness to the anterior tibial mid avalos right lower extremity. It is warm to the touch. There is no blisters. No breaks in the skin. Neuro General: alert and awake Sensory Exam: no sensory deficits noted Extrem General: normal to inspection and capillary refill normal Psych Appearance: grossly normal and well kempt Course Vital Signs Vital signs: Vital Signs - 8 hr 04/15/19 11:02 Temperature 97.8 F Pulse Rate 78 Respiratory Rate 12 Blood Pressure 146/75 H Pulse Oximetry 99 MDM - Skin/Abscess/Foreign Bdy MDM Narrative Medical decision making narrative: Patient does have redness and warmth to the right anterior avalos however it is not tender. Patient is nontoxic appearing. She also thinks that has been improving over the past day with ice and topical cortisone cream. I did consider cellulitis however this could also be a dermatitis. Unsure if it was related to her chiropractic visit. Plan will be is to give her prescription for antibiotics however she is going to hold on these. The area was outlined with a skin marker. She is going to continue with ice and that topical steroid cream. If the area worsens or she develops systemic symptoms or the redness develops outside of the marking she is going to take the antibiotics as directed otherwise she will hold on filling them. She was given return precautions and follow-up instructions. She expressed understanding and agreement with plan. Discharge Plan Departure Patient Disposition: Home Clinical Impression: Dermatitis Instructions: Contact Dermatitis Activity Restrictions/Additional Instructions: You can shower like normal. Continue to use the topical steroid cream and also icing like we discussed. If the area extends outside of the markings start the antibiotics as directed. I do recommend you contact her primary provider. Return to the emergency department for any new or worsening symptoms Prescriptions: New cephalexin [Keflex] 500 mg capsule 500 mg PO QID 5 Days Qty: 20 RF: 0 No Action levothyroxine 150 MCG tablet 150 mcg PO DAILY Qty: 0 RF: 0 amlodipine 5 mg tablet 5 mg PO QPM RF: 0 Tymlos 80 mcg (3,120 mcg/1.56 mL) pen injector 1 dose subcut RF: 0 multivitamin Tablet 1 tab PO DAILY RF: 0 Calcium 1 tab PO DAILY RF: 0 Probiotic 1 cap PO DAILY RF: 0 Vitamin C 1 tab PO DAILY RF: 0 Vitamin D3 1 cap PO DAILY RF: 0 albuterol sulfate 90 mcg/actuation HFA aerosol inhaler 1 puff INHALATION PRN PRN (Reason: Shortness Of Breath) RF: 0 Referrals: Jesse Fonseca MD [Primary Care Provider] -
== END 2019-04-15 11:53 | disposition home or self-care (01) ==
PROVIDERS: Emergency Provider Emergency Medicine; PCP Family Medicine
DX: L30.9 Dermatitis, unspecified (principal)
CPT/HCPCS: 36415; 99282; 99283

== ENCOUNTER → 2019-05-22 10:07 | Outpatient (CLI) | payer MEDICARE, BC, SELFPAY ==
--- NOTE | 2019-05-22 | DI.MG.S_ITS ---
BILATERAL DIGITAL SCREENING MAMMOGRAM 3D/2D WITH CAD: 05/22/2019 Comparison is made to exams dated: 03/09/2018 mammogram - [facility] and 06/30/2015 mammogram - [facility] The tissue of both breasts is heterogeneously dense. This may lower the sensitivity of mammography. Current study was also evaluated with a Computer Aided Detection (CAD) system. There are benign calcifications in both breasts. No significant masses, calcifications, or other findings are seen in either breast. There has been no significant interval change. IMPRESSION: There is no mammographic evidence of malignancy. A 1 year screening mammogram is recommended. This exam was interpreted at Station ID: [id number]. NOTE: For mammograms, a report in lay terms will be sent to the patient. Approximately 15% of breast malignancies will not be visualized mammographically. In the management of a palpable breast mass, a negative mammogram must not discourage biopsy of a clinically suspicious lesion. Electronically Signed By: Danielito beckett/ryley:05/22/2019 12:06:34 letter sent: Normal Exam ACR BI-RADS Category 2: Benign Finding(s) [id number]
== END ==
PROVIDERS: PCP Family Medicine; Visit Provider Family Medicine
DX: Z12.31 Encounter for screening mammogram for malignant neoplasm of breast (principal)
CPT/HCPCS: 77063; 77067

== ENCOUNTER → 2019-05-24 09:11 | Outpatient (CLI) | payer MEDICARE, BC, SELFPAY ==
--- NOTE | 2019-05-24 | DI.MRI.S_ITS ---
PROCEDURE: MR CERVICAL SPINE WO CON INDICATIONS: Radiculopathy, cervical region TECHNIQUE: Noncontrast sagittal T1 spin echo and T2 fast spin echo, sagittal STIR, foraminal oblique sagittal T2 fast spin echo, and axial gradient echo or T2 fast spin echo through the cervical spine. COMPARISON: [facility], CT, CT HEAD/BRAIN WO CON, 01/16/2019, 13:40. FINDINGS: Image quality: Diagnostic, with note made of motion artifact. Alignment and Curvature: There is normal bony alignment. Bone Marrow: Marrow demonstrates normal overall signal. Spinal Cord: Visualized spinal cord has normal size and signal. No cerebellar tonsillar herniation. Paraspinous Soft Tissues: No paravertebral masses. Prevertebral soft tissues are normal in thickness. C2-C3: No significant abnormality is seen. C3-C4: The disc height is well-preserved. Loss of disc signal is seen at this level. Mild to moderate disc osteophyte complex is seen. Nzye-hx-ctbkjffj bilateral neural foraminal narrowing is seen. Nqoz-fv-nttgnnbe central canal narrowing is seen, with minimal mass effect upon the ventral spinal cord. C4-C5: The disc height is well-preserved. Loss of disc signal is seen at this level. Moderate generalized disc osteophyte complex is seen. There is prominent right-sided and at least moderate left-sided facet hypertrophy seen. There is moderate to prominent right-sided and moderate left-sided neural foraminal narrowing seen. Moderate central canal narrowing is seen. C5-C6: Mild loss of disc height is seen. Loss of disc signal is seen. Moderate generalized disc osteophyte complex is seen. Moderate to prominent facet hypertrophy is seen. There is at least moderate right-sided and moderate left-sided neural foraminal narrowing seen. Moderate central canal narrowing is seen, with associated mass effect upon the ventral spinal cord. C6-C7: The disc height is well-preserved. Loss of disc signal is seen at this level. Mild to moderate disc osteophyte complex is seen. Moderate facet joint hypertrophy is seen. Moderate bilateral neural foraminal narrowing is seen. Mild central canal narrowing is seen. C7-T1: Mild loss of disc height is seen. Loss of disc signal is seen. A mild degree of generalized disc osteophyte complex is seen. Mild facet joint hypertrophy is seen. Mild bilateral neural foraminal narrowing is seen. The central canal is widely patent. IMPRESSION: Multiple levels of cervical spine degenerative change are seen, which are most prominent at the C5-C6 level. Dictated by: Jones Martinez M.D. on 05/24/2019 at 10:17 Approved by: Jones Martinez M.D. on 05/24/2019 at 10:21
== END ==
PROVIDERS: PCP Family Medicine; Visit Provider Orthopaedic Surgery
DX: M47.22 Other spondylosis with radiculopathy, cervical region (principal)
CPT/HCPCS: 72141

== ENCOUNTER → 2020-07-29 17:00 | Outpatient (CLI) | payer MEDICARE, BC, SELFPAY ==
[2020-07-29] MEDS: COVID-19 VACC #1, MRNA(MOD) 100 MCG/0.5 ML VIAL IM (17:05)
== END ==
PROVIDERS: Visit Provider Internal Medicine
DX: Z23 Encounter for immunization (principal)
CPT/HCPCS: 0011A; 91301

== ENCOUNTER → 2020-08-27 09:23 | Outpatient (CLI) | payer MEDICARE, BC, SELFPAY ==
[2020-08-27] MEDS: COVID-19 VACC #2, MRNA(MOD) 100 MCG/0.5 ML VIAL IM (09:33)
== END ==
PROVIDERS: Visit Provider Internal Medicine
DX: Z23 Encounter for immunization (principal)
CPT/HCPCS: 0012A; 91301

== ENCOUNTER → 2020-11-05 17:39 | Outpatient (CLI) | payer OTHER, SELFPAY ==
--- NOTE | 2020-11-05 | DI.MRI.S_ITS ---
PROCEDURE: MR SHOULDER LT WO CON INDICATIONS: IMPINGEMENT OF LT SHOULDER TECHNIQUE: Noncontrast oblique coronal T2 fast spin echo with fat saturation, oblique sagittal T1 spin echo and T2 fast spin echo with fat saturation, axial T1 spin echo and T2 fast spin echo with fat saturation through the shoulder. COMPARISON: [facility], MR, SHOULDER WITHOUT CONTRAST, 04/24/2017, 13:37. FINDINGS: Rotator cuff: Large full-thickness tear involving the supraspinatus and infraspinatus tendons measuring approximately 2.9 cm in the AP dimension as seen on sagittal pulse sequences. Teres minor grossly intact. Subscapularis tendinopathy with partial thickness articular sided tear. Atrophy of the supraspinatus and infraspinatus muscles. Borderline atrophy of the subscapularis muscle. Bones and bursae: No bone marrow contusions or fractures. Moderate hypertrophic acromioclavicular joint degeneration. Mild to moderate glenohumeral osteoarthritis Acromion demonstrates conventional anatomy, without an os acromiale. Capsule and soft tissues: Labrum: Circumferential macerated probably degenerative tearing of the labrum.. Biceps: Severe long head biceps tendinopathy is present although no definite complete rupture. Rotator interval: Normal signal intensity. Coracohumeral ligament: Intact. IMPRESSION: Large full-thickness tear of the rotator cuff as above. Atrophy of the supraspinatus, infraspinatus and subscapularis muscles. Circumferential ill-defined tear of the labrum likely chronic/degenerative. Severe intra-articular segment long head biceps tendinopathy. Dictated by: Jonny Field M.D. on 11/06/2020 at 9:33 Approved by: Jonny Field M.D. on 11/06/2020 at 9:56
== END ==
LOC: MRI 18:02 → OR 11-06 15:08 → MRI 12-01 09:31
PROVIDERS: Referring Provider Orthopaedic Surgery; Visit Provider Orthopaedic Surgery
DX: M75.42 Impingement syndrome of left shoulder (principal); M75.122 Complete rotator cuff tear or rupture of left shoulder, not specified as traumatic; S43.402A Unspecified sprain of left shoulder joint, initial encounter; M62.512 Muscle wasting and atrophy, not elsewhere classified, left shoulder
CPT/HCPCS: 73221

== ENCOUNTER 2020-12-08 10:10 | Emergency (ER) | payer OTHER, SELFPAY ==
[2020-12-08 10:41] VITALS: BP 172/93; PULSE 88; RESP 15; TEMP 36.7; O2SAT 97; BMI 26.2
--- NOTE | 2020-12-08 10:46 | DI.RAD.S_ITS ---
PROCEDURE: XR SHOULDER RT MIN 2V INDICATIONS: right shoulder pain today TECHNIQUE: 3 views of the shoulder were acquired. COMPARISON: None. FINDINGS: Bones: No fractures or dislocations. Moderate acromioclavicular joint and glenohumeral joint osteoarthritic changes are seen. No suspicious bony lesions. Likely intraosseous cyst formations in greater tuberosity of humeral head are also noted. Visualized ribs appear intact. Soft tissues: Small calcification in lateral soft tissue along proximal humeral shaft is seen likely represent old injury. IMPRESSION: No acute right shoulder fracture or dislocation. Moderate right shoulder joint osteoarthritis. Subcortical cyst formation in greater tuberosity of humeral head which can be seen associated with rotator cuff tendon tear. Dictated by: Federico Ellison M.D. on 12/08/2020 at 11:16 Approved by: Federico Ellison M.D. on 12/08/2020 at 11:18
--- NOTE | 2020-12-08 10:51 | PC.NURSE ---
pt states she has limited ROM.
--- NOTE | 2020-12-08 11:58 | ED_ITS ---
HPI - Extremity Injury (Upper) General Chief Complaint: Extremity Injury, Upper Stated Complaint: RT SHOULDER PAIN. REF BY Time Seen by Provider: 12/08/20 11:57 Source: patient and family Mode of arrival: Ambulatory Limitations: no limitations History of Present Illness HPI narrative: 75-year-old female emergency department complaint of a pop in her right shoulder and pain with difficulty movement while putting on short this morning. She states she is reaching upwards when doing this. She states she had immediate pain and could not really move her shoulder at all. As she has been here in the department she started to have some increasing range of motion. She does have increased pain of or the shoulder and reading a little bit down her arm. She denies any numbness, tingling or weakness. Patient has had a history of rotator cuff tear on that side in the past. She states she is currently being treated for left shoulder rotator cuff tear and seeing PT regularly. Patient states she has but does follow with Dr. Lainez regularly. She has had multiple orthopedic injuries including both of her knees replaced, her right wrist was question she has 2 rods as well as 13 screws and she also has hardware in her left wrist. Patient states she is very sensitive to oral narcotics and they often make her vomit. She has follow-up with Dr. Lainez on the 24 of December. She denies any other daily medications besides levothyroxine. Related Data Home Medications Medication Instructions Recorded Confirmed levothyroxine 150 mcg PO DAILY #0 12/19/12 04/15/19 Calcium 1 tab PO DAILY 01/16/19 01/16/19 Probiotic 1 cap PO DAILY 01/16/19 01/16/19 Vitamin C 1 tab PO DAILY 01/16/19 01/16/19 Vitamin D3 1 cap PO DAILY 01/16/19 01/16/19 abaloparatide [Tymlos] 1 dose SUBCUT 01/16/19 01/16/19 amlodipine 5 mg PO QPM 01/16/19 04/15/19 multivitamin 1 tab PO DAILY 01/16/19 01/16/19 albuterol sulfate 1 puff INHALATION PRN PRN 04/15/19 04/15/19 Allergies Allergy/AdvReac Type Severity Reaction Status Date / Time ciprofloxacin [From CIPRO] Allergy Intermediate Verified 12/08/20 10:46 tetracycline [TETRACYCLINE] Allergy Intermediate Verified 12/08/20 10:46 epinephrine [EPINEPHRINE] Allergy Unknown Verified 12/08/20 10:46 Pzpxnlu-Gsh-Ofs Reductase Allergy Unknown HEART Verified 12/08/20 10:46 Inhibitor ATTACK [YOEFUOS-CLX-DRS REDUCTASE SYMPTOMS INHIBITOR] [facility]OT AdvReac Unknown Uncoded 10/04/17 12:26 Review of Systems Review of Systems ROS Unobtainable: All systems reviewed & are unremarkable except as noted in HPI and below Patient History Medical History (Updated 12/08/20 @ 12:59 by Franci Blanco DO) Hypothyroid Surgical History History of bilateral knee replacement Social History Smoking Status: Never smoker Smoking Status: Never smoker alcohol intake frequency: 3 or more drinks per day Substance Use Type: does not use Exam Narrative Exam Narrative: GENERAL: Alert and oriented x three, well-nourished female in mild distress. HEENT: Head normocephalic, atraumatic, EOMI, pupils reactive, face symmetric, moist mucous membranes NECK: Supple, full range of motion CARDIOVASCULAR: Regular rate and rhythm without murmurs, rubs or gallops. RESPIRATORY: Breath sounds equal bilaterally, no wheezes rales or rhonchi. EXTREMITIES: Normal range of motion of the left upper extremity, patient has decreased movement of the right, she is able to lift about 90? but because quite painful, she is also able flex to about 90? as well at the shoulder, she has normal range of motion at the wrist, fingers. She can fully flex extend at the elbow but is quite uncomfortable. Patient has good pipe organ mechanic equal bilaterally, she has equal strength push and pull but has increased pain with full. Patient does not have any obvious deformity. She does have some tenderness over the proximal biceps tendon but it is palpable on exam. She does not have any obvious changes to the biceps muscle or deformity comparison to the other side. There is no warmth, erythema, ecchymosis or obvious deformity in the left compared to right shoulder., no clubbing or edema. Neurovascularly intact. 2+ radial pulse bilaterally. Cap refill less than 2 seconds in all 5 fingers with normal sensation. NEUROLOGICAL: Cranial nerves II through XII grossly intact. Moving all extremities SKIN: Warm, dry, no petechiae, no rashes or lesions. Initial Vital Signs Initial Vital Signs: Vital Signs Temperature 98.1 F 12/08/20 10:41 Pulse Rate 88 12/08/20 10:41 Respiratory Rate 15 12/08/20 10:41 Blood Pressure 172/93 H 12/08/20 10:41 Pulse Oximetry 97 12/08/20 10:41 Course Orders Ordered: ED Orders 12/08/20 10:46 XR shoulder RT min 2V Stat Discontinued Medications Ketorolac Tromethamine (Ketorolac 30 Mg/Ml Vial) 30 mg IM NOW ONE Stop: 12/08/20 12:59 Last Admin: 12/08/20 13:07 Dose: 30 mg Documented by: JACOB Vital Signs Vital signs: Vital Signs - 8 hr 12/08/20 13:16 Pulse Rate 80 Respiratory Rate 16 Blood Pressure 160/85 H Pulse Oximetry 98 MDM - Extremity Injury (Upper) Imaging Data Extremity x-ray #1: Radiologist's Impression: [address] [id number] ReportSigned Patient: Valerie Wang FMR#: [id number]: 4Acct:[id number]/Sex: 75 / FDate of Service: 12/08/20Loc: EDAccession Number: [id number] Procedure: XR shoulder RT min 2V Ordering Provider: Franci Blanco D.O. PROCEDURE: XR SHOULDER RT MIN 2V INDICATIONS: right shoulder pain today TECHNIQUE: 3 views of the shoulder were acquired. COMPARISON: None. FINDINGS: Bones: No fractures or dislocations. Moderate acromioclavicular joint and glenohumeral joint osteoarthritic changes are seen. No suspicious bony lesions. Likely intraosseous cyst formations in greater tuberosity of humeral head are also noted. Visualized ribs appear intact. Soft tissues: Small calcification in lateral soft tissue along proximal humeral shaft is seen likely represent old injury. IMPRESSION: No acute right shoulder fracture or dislocation. Moderate right shoulder joint osteoarthritis. Subcortical cyst formation in greater tuberosity of humeral head which can be seen associated with rotator cuff tendon tear. Dictated by: Federico Ellison M.D. on 12/08/2020 at 11:16 Approved by: Federico Ellison M.D. on 12/08/2020 at 11:18 MDM Narrative Medical decision making narrative: 75-year-old female with a pop sensation and increased pain and decreased movement of her right shoulder this morning while putting on her shirt. Patient does have some slightly decreased strength and does have some decreased range of motion although it has improved since the initial injury earlier today. Patient has had prior rotator cuff tear in that shoulder in the past. She follows with Dr. Lainez regularly for multiple orthopedic issues on and was placed in a sling, return precautions and short course of pain medication. Patient states she does not tolerate narcotics very well so NSAIDs were given preferentially. Discharge Plan Departure Patient Disposition: Home Clinical Impression: Injury of right shoulder Qualifiers: Encounter type: initial encounter Qualified Code(s): S49.91XA - Unspecified injury of right shoulder and upper arm, initial encounter Activity Restrictions/Additional Instructions: Follow up with Dr. Lainez, call the office to see if they would like you to be seen before your December 24 follow up appointment. You may take ibuprofen up to 600 mg every 6 hours needed for pain and/or tylenol up to 1000mg every 8 hours as needed for pain. Make sure you continue with gentle range of motion with your shoulder to prevent frozen shoulder. You may increase your activity as tolerated. No sudden pulling or jerking motions, only light weights as tolerated. Less than 10 pounds. Splint Care: Keep splint clean and dry. Elevated affected body part to decrease swelling. OK to use ice pack on the affected body part. Use for 15-20 minutes each time, for 5-6x per day. If you develop worsening pain, numbness, tingling, discoloration of the affected body part, adjust the sling, and either see your doctor for an urgent re-assessment, or return to the Emergency Department. Return to the Emergency Department for any new or worsening symptoms. Prescriptions: No Action levothyroxine 150 MCG tablet 150 mcg PO DAILY Qty: 0 RF: 0 amlodipine 5 mg tablet 5 mg PO QPM RF: 0 Tymlos 80 mcg (3,120 mcg/1.56 mL) pen injector 1 dose subcut RF: 0 multivitamin Tablet 1 tab PO DAILY RF: 0 Calcium 1 tab PO DAILY RF: 0 Probiotic 1 cap PO DAILY RF: 0 Vitamin C 1 tab PO DAILY RF: 0 Vitamin D3 1 cap PO DAILY RF: 0 albuterol sulfate 90 mcg/actuation HFA aerosol inhaler 1 puff INHALATION PRN PRN (Reason: Shortness Of Breath) RF: 0 Referrals: Oj Lainez MD [Physician] -
[2020-12-08] MEDS: KETOROLAC 30 MG/ML VIAL IM (13:07)
[2020-12-08 13:16] VITALS: BP 160/85; PULSE 80; RESP 16; O2SAT 98
== END 2020-12-08 13:23 | disposition home or self-care (01) ==
PROVIDERS: Emergency Provider Emergency Medicine
DX: S49.91XA Unspecified injury of right shoulder and upper arm, initial encounter (principal)
CPT/HCPCS: 73030; 96372; 99283; 99284; J1885

== ENCOUNTER → 2021-03-05 10:40 | Outpatient (CLI) | payer OTHER, SELFPAY ==
[2021-03-05 14:08] LABS: COVID19 -Nasal RAPID Negative (Negative)
== END ==
PROVIDERS: Visit Provider Nurse Practitioner
DX: Z20.822 Contact with and (suspected) exposure to COVID-19 (principal)
CPT/HCPCS: 87635; C9803

== ENCOUNTER 2021-03-08 08:17 | Day surgery (SDC) | payer OTHER, SELFPAY ==
[2021-03-03 09:01] VITALS: BMI 26.4
[2021-03-08] VITALS (17 sets, daily range): BP systolic 105–169; BP diastolic 48–83; PULSE 75–100; RESP 11–17; TEMP 36.1–37.2; O2SAT 92–100; BMI 26.4
[2021-03-08] MEDS: LACTATED RINGERS 1,000 ML 42 ML IV ×2 (09:26→12:48)
[2021-03-08] MEDS: ACETAMINOPHEN 325 MG TABLET 975 MG PO (09:35)
[2021-03-08] MEDS: CELECOXIB 200 MG CAPSULE PO (09:36)
[2021-03-08] MEDS: PREGABALIN 75 MG CAPSULE PO (09:36)
--- NOTE | 2021-03-08 09:46 | PM.PREOP ---
Pre-operative Note COVID-19 COVID-19 status: Negative Result date/Date tested (Pos, Neg/Pending): 03/05/21 Interval Note History & Physical reviewed/Exam performed by Physician: Yes Changes to H&P: No
--- NOTE | 2021-03-08 09:56 | PM.OP.1 ---
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 Radiographic studies have revealed changes consistent with a massive rotator cuff tear. They have elected to proceed with reverse total shoulder replacement after discussion of the risks benefits and alternatives. Risks discussed included but were not limited to: Failure to improve, instability, infection, nerve damage, deep venous thrombosis, pulmonary embolism, stroke, coma, myocardial infarction and . Surgeon: Oj Lainez Director Mobile [employer]: Rudy Arreola Click Yes if Unassisted: No Anesthesia Type: General, Peripheral nerve block and Local Operative Notes Findings: Massive irreparable rotator cuff tear. In addition the bone was soft and unfortunately an anterior inferior glenoid fracture occurred during use of the glenoid Reamer. Closure Type: primary Specimen(s): none sent Prosthetic devices, grafts, tissues, transplants, or devices: DJO RSP reverse total shoulder system with a 30 mm base plate, 2 locking screws of 5.0 mm diameter measuring 26 and 18 mm in length, a 32- 4 mm RSP glenoid head with retaining screw, a humeral stem with a small shell with a 12 mm diameter and a small socket insert 32 mm neutral E plus humeral cup. Applied: implant(s) Estimated Blood Loss (mL): 200 Blood products transfused: none Procedure in detail: The patient was seen in the preoperative area where they identified the left shoulder as the operative site and this was marked with my initials. They received preoperative antibiotics and underwent the induction of an interscalene block. They were taken to the operating room and placed on the operating room table in a supine position with the underwent the induction of a general anesthetic. There were then repositioned in the ?beach chair? position using a dedicated positioner. All pressure points were well padded. The knees were slightly bent to prevent tension on the sciatic nerves. A school business manager-out was performed. The left arm was prepared from the fingertips to the base of the neck with ChloraPrep in the usual fashion and draped through sterile drapes. An approximately 15 cm incision was created starting at the clavicle just above the coracoid and going to the deltoid insertion. The deltopectoral interval was used to access the shoulder taking the vein to the lateral side. The vein was protected throughout the case. The upper 1 cm of the pectoralis major was released. The biceps tendon was identified and used as a guide to releasing the remaining subscapularis. The biceps itself was tenodesed over the pectoralis tendon using a suture. The subscapularis was tagged for later repair. The shoulder was dislocated and a proximal humeral osteotomy performed using an extramedullary guide. A proximal humeral protector was then placed. Retractors were placed access the glenoid. A 360 degree release was performed of the remaining subscapularis with care being taken to protect the axillary nerve. The soft tissues were removed circumferentially around the glenoid. The guide was used to drill the guide hole in the center of the inferior glenoid. The tap was placed and used as a guide for the reamer. During reaming, an anterior inferior glenoid fracture occurred encompassing approximately a 3rd of the surface area of the glenoid. Tap was then removed and the glenoid base plate inserted. The peripheral locking screws were then placed through the appropriate guide in the superior and posterior screw holes which were on intact bone. This gave good fixation of the base plate. A trial glenoid head was applied. We then turned our attention to the humerus. The proximal humeral protector was removed. Cylindrical reamers were used to size the canal. We stopped at a 12 mm Reamer as a size 14 requires a standard humeral cup size and the patient is of small stature. Broaching was then performed beginning with a small broach and working up until a line to line fit with the reamer was obtained. The guide for the proximal metaphyseal reamer was then applied and the metaphysis was reamed appropriately. The trial metaphyseal portion of the body was then applied to the broach. Trial reductions were performed and the size of the glenoid head and the cup were optimized. Stability was checked in maximal internal and external rotation and range of motion was checked to allow access to the top of the head, internal rotation to an excess of 50? in the ?scarecrow position? and the ability to reach the groin. The appropriate final prosthetic components were then opened. The glenoid head was impacted into position and checked for rotational and axial stability before placing the set screw. The humeral prosthetic was then impacted into position after using morselized humeral head as bone graft in the canal. Stem fixation was firm. The humeral cup was placed. The joint was relocated and irrigated. The subscapularis was repaired to the lesser tuberosity using [id number] # 2 Ethibond sutures. The deltopectoral interval was reapproximated with 0 Vicryl. Subcutaneous layer was closed with interrupted 3-0 Vicryl and skin with a running 3 0 V lock suture and Dermabond. Subcutaneous tissues were then infiltrated with Exparel for postoperative pain control. An Aquacel Ag dressing was applied and the patient's arm was placed in a sling. The patient was then transferred to the recovery room in good condition having tolerated the procedure well. Complications: other (Anterior inferior glenoid fracture with use of the Reamer.) Post-operative Condition: stable Disposition: PACU Plan for aftercare: The patient will be allowed to use their arm in front of the body below shoulder level lifting no more than 1 lb for 6 weeks. We will then progress range of motion with physical therapy.
--- NOTE | 2021-03-08 10:00 | DI.RAD.S_ITS ---
PROCEDURE: XR SHOULDER RT 1V INDICATIONS: POST OP TOTAL SHOULDER TECHNIQUE: 1 views of the shoulder were acquired. COMPARISON: [facility], , XR SHOULDER RT MIN 2V, 12/08/2020, 10:42. FINDINGS: Bones: Expected immediate postoperative appearance, status post total left shoulder arthroplasty. No evidence of hardware failure or loosening. No fractures or dislocations. No suspicious bony lesions. Visualized ribs appear intact. Soft tissues: No suspicious soft tissue calcifications. IMPRESSION: Expected immediate postoperative appearance, status post total left shoulder arthroplasty. Dictated by: Efren Mariee M.D. on 03/08/2021 at 16:01 Approved by: Efren Mariee M.D. on 03/08/2021 at 16:02
[2021-03-08] MEDS: CEFAZOLIN 1 GM VIAL 2 GM IV (11:25)
[2021-03-08] MEDS: TRANEXAMIC ACID 1,000 MG VIAL 1000 MG INJ ×2 (11:38→13:01)
--- NOTE | 2021-03-08 11:45 | SUR.OPER ---
Beach chair with Schlein shoulder positioner. Lower body on padded OR bed. Head in foam padded head cradle, secured with straps. Non-operative arm secured <90 degrees abduction. Pillow under knees. Safety belt at thigh. Cloth tape over blanket over lower legs.
[2021-03-08] MEDS: BUPIVACAINE LIPOSOME 266 MG/20 ML VIAL INJ (12:03)
--- NOTE | 2021-03-08 13:58 | SUR.PHASEI ---
[id number] Lainez notified that patient complains of seeing black shapes dancing around the edges of the eyes, and when eyes are closed they are dancing with red. No new orders at this time. Pt with pupils equal, reactive to light, peripheral vision intact.
--- NOTE | 2021-03-08 14:07 | SUR.PHASEI ---
1316 Patient to PACU in bed with Dr Allen and RN after general anesthesia breathing unassisted on room air.
--- NOTE | 2021-03-08 14:10 | SUR.PHASEI ---
Dr Allen at bedside evaluating and talking with patient.
[2021-03-08] MEDS: LACTATED RINGERS 1,000 ML 100 ML IV (14:48)
[2021-03-08] MEDS: OXYCODONE IR 5 MG TABLET PO (17:52)
[2021-03-08] MEDS: AMLODIPINE 5 MG TABLET PO (17:52)
[2021-03-08] MEDS: ONDANSETRON 4 MG/2 ML INJ IV (19:17)
[2021-03-08] MEDS: DOCUSATE 100 MG CAPSULE PO (20:09)
[2021-03-09] MEDS: LACTATED RINGERS 1,000 ML 100 ML IV (00:26)
[2021-03-09] MEDS: OXYCODONE IR 5 MG TABLET PO ×3 (00:55→08:20)
--- NOTE | 2021-03-09 02:41 | PC.NURSE ---
Patient is alert and oriented with some minor forgetfulness. Breath sounds CTA with RA sat of 94%. HRR. Denied nausea. BT present and is passing flatus. Denied dysuria, frequency or urgency with urination. Is able to move self in bed and up to bathroom with SBA. Aquacel dressing to left shoulder is CDI; arm is in sling. Has good radial pulse and cap refill. Denies any tingling/numbness. Complained of 6/10 pain and ice applied and medicated with oxycodone and is now asleep. Wearing bilateral calf SCD's. Fall risk score is moderate; bed alarm is activated.
[2021-03-09 04:51] VITALS: BP 104/66; PULSE 80; RESP 18; TEMP 35.9; O2SAT 93
[2021-03-09 05:31] LABS: Hemoglobin 11.6 g/dL (12.0-16.0)
[2021-03-09 07:21] VITALS: BP 137/65; PULSE 80; RESP 16; TEMP 36.4; O2SAT 97
[2021-03-09] MEDS: SYNTHROID 137 MCG PO (08:19)
[2021-03-09] MEDS: CHOLECALCIFEROL (VITAMIN D3) 400 UNIT TABLET PO (08:20)
[2021-03-09] MEDS: MULTIVITAMIN 1 TABLET 1 TAB PO (08:20)
[2021-03-09] MEDS: LACTOBACILLUS ACIDOPHILUS TABLET 1 EACH PO (08:20)
[2021-03-09] MEDS: ASCORBIC ACID 500 MG TABLET 1000 MG PO (08:20)
[2021-03-09] MEDS: DOCUSATE 100 MG CAPSULE PO (08:20)
[2021-03-09] MEDS: ASPIRIN EC 81 MG TABLET PO (08:20)
--- NOTE | 2021-03-09 09:14 | P.DS_ITS ---
History of Present Illness History of Present Illness Date Patient Seen: 03/09/21 Time Patient Seen: 09:14 Chief complaint: Left Total Shoulder Arthroplasty - Reverse *OPB* Narrative: History and physical is contained in the chart previously completed note. Please refer to that note for this information. Discharge Providers Provider Date of admission: March 08, 2021 Discharge Date: 03/09/21 Primary care physician: Keely Pineda MD Consults: 03/08/21 08:51 Consult to Anesthesiology Routine Comment: Consulting Provider: Anesthesiologist Reason for consultation: Regional block for post operative pain control 03/08/21 14:20 Consult to Discharge Planning Routine Comment: Consult to Physical Therapy Evaluate & Treat Comment: Physician Instructions: PROM 90 FF, 0 ER, 0 Abd, IR to body, pendulums Consult to Respiratory Therapy Evaluate & Treat Comment: Physician Instructions: Evaluate and treat Discharge provider: Oj Lainez MD Summary Hospital Course Discharge Diagnosis: 1. 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 Iatrogenic fracture of the left glenoid 3. Mild post hemorrhagic anemia Hospital Course: The patient was admitted to the hospital and taken directly to the operating room on March 08, 2021. She underwent a left reverse total shoulder for the indication of massive irreparable rotator cuff tear. The procedure was complicated by an anterior inferior glenoid fracture which occurred during glenoid reaming. The glenoid base plate was placed and felt to have adequate fixation so the procedure continued. On postoperative day 1 she was comfortable. Light touch was intact in the radial, ulnar, median, muscular cutaneous and axillary nerve distributions. She could extend her thumb, abduct her thumb, abduct her fingers and could fire her biceps and deltoid. Status at Discharge Cognitive/behavioral status at discharge: oriented Functional status at discharge: independent ambulation Overall status at discharge: patient is progressing back to baseline Time Spent with Patient Time spent: Greater than 30 minutes Exam Vital Signs (past 8 hours): - 03/09/21 04:51 03/09/21 07:21 Temperature 96.6 F L 97.6 F Pulse Rate 80 80 Respiratory Rate 18 16 Blood Pressure 104/66 137/65 Pulse Oximetry 93 97 Oxygen Delivery Method Room Air Oxygen Flow Rate 0 Narrative Exam Narrative: Left shoulder dressing is intact with no drainage on the bandage. Light touch is intact in the radial, ulnar, median, muscular cutaneous and axillary nerve distribution. She can extend her thumb, abduct her thumb, abduct her fingers and can fire her biceps and deltoid. Objective Labs Result Diagrams: 03/09/21 05:00 Labs: Laboratory Results - last 24 hr 03/09/21 05:00 Hgb 11.6 L Hct 34.0 L PFSH Medical History (Updated 03/03/21 @ 09:03 by Nyla Dutta RN) Anxiety and depression Arthritis Easy bruisability Environmental allergies GERD (gastroesophageal reflux disease) HLD (hyperlipidemia) HTN (hypertension) Hypothyroid Osteoarthritis Osteopenia Osteoporosis Skin cancer Tinnitus Surgical History (Updated 03/03/21 @ 09:06 by Nyla Dutta RN) H/O left wrist surgery (~2012) H/O right wrist surgery (~2009) History of bilateral knee replacement History of hysterectomy History of left knee replacement History of right knee joint replacement History of surgery History of surgery History of tonsillectomy and adenoidectomy Hx of appendectomy Hx of bilateral cataract extraction Hx of oophorectomy Hx of vein stripping Social History household members: spouse Smoking Status: Never smoker alcohol intake: current Discharge Assessment & Plan Assessment and Plan Assessment: Stable postoperative day 1 after left reverse total shoulder replacement complicated by glenoid fracture during reaming due to underlying osteoporosis. The fixation of the glenoid component did not seem to be significantly compromised so the procedure proceeded. She is comfortable on oral pain medication. We have discussed the complications that occurred at the time of surgery. All of her questions were answered. Plan of Treatment: She will be discharged home today. She is to remain passive range of motion with limitations of 90? forward flexion 0? external rotation at the side and internal rotation to the body. She is to remain in the sling most of the time. She is allowed to lift 1-2 lb with her left hand to complete activities of daily living. She is not to drive for at least 6 weeks. Follow-up will be at my office in 10-14 days. Discharge prescriptions for oxycodone have been sent to the [facility]. She has been instructed in the use of Tylenol for pain relief and in the use of low-dose aspirin for DVT prophylaxis. Discharge Plan Discharge Plan Patient Disposition: Home Discharge orders & Medications Discharge Orders: Discharge (Order); Ordered 03/09/21 Ordered By: Oj Lainez Prescriptions: New acetaminophen 325 mg Tablet 650 mg PO TID 30 Days Qty: 180 RF: 0 aspirin 81 mg Tablet,Delayed Release (Dr/Ec) 81 mg PO BID 42 Days Qty: 84 RF: 0 oxycodone 5 mg Tablet 5 mg PO Q4H PRN (Reason: Pain, Moderate (4-6)) Qty: 40 RF: 0 Continued levothyroxine [Synthroid] 137 mcg Tablet 137 mcg PO DAILY RF: 0 amlodipine 5 mg tablet 5 mg PO QPM RF: 0 multivitamin Tablet 1 tab PO DAILY RF: 0 ascorbic acid (vitamin C) [Vitamin C] 1,000 mg Tablet 1,000 mg PO DAILY RF: 0 cholecalciferol (vitamin D3) [Vitamin D3] 10 mcg (400 unit) Capsule 10 mcg PO DAILY RF: 0 Probiotic 15 billion cell Capsule 1 cap PO DAILY RF: 0 albuterol sulfate 90 mcg/actuation HFA aerosol inhaler 1 puff INHALATION PRN PRN (Reason: Shortness Of Breath) RF: 0 Follow up/Referrals: Oj Lainez MD [Physician] - 2 Weeks Keely Pineda MD [Primary Care Provider] - Diet/Activity/Treatments Diet: Diet as Tolerated and Regular Activity: You may use your left arm in front of your body below shoulder level to lift no more than 1-2 lb. You may do pendulum exercises. Please remain in the sling when leaving the home. No driving for at least 6 weeks. Cold/Heat Therapy: You may apply ice to your left shoulder for 15 minutes every hour as needed for pain control. Skin/Wound/Dressing Care Skin care: Place a maxi pad or other absorbent material in your left armpit. Report to your healthcare provider any signs of infection, such as:: chills, fever, night sweats, increased pain, unusual drainage and unusual redness Dressing: You may shower with the current dressing intact. Leave the dressing in place until you are seen in follow-up. If the central strip of the dressing becomes saturated with either water or blood, please call the office. Visit Report/Discharge Packet Instructions: DI for Shoulder Replacement Stand Alone Forms: Surgery Discharge Discharge Data Primary Care Provider: Keely Pineda Attending Provider: Oj Lainez Quality VTE Deep Vein Thrombosis/Pulmonary Embolism Present on Admission: No
--- NOTE | 2021-03-09 10:16 | PT.IIE ---
Current Diagnoses Complete rotator cuff tear or rupture of left shoulder, not specified as traumatic (03/08/21) Surgery Performed Operation Date: 03/08/21 10:15 Actual Procedures p Total Shoulder Arthroplasty - Reverse (Left) - Oj Lainez MD Medical History (Last Updated 03/03/21 @ 09:03 by Nyla Dutta RN) Anxiety and depression Arthritis Easy bruisability Environmental allergies GERD (gastroesophageal reflux disease) HLD (hyperlipidemia) HTN (hypertension) Hypothyroid Osteoarthritis Osteopenia Osteoporosis Skin cancer Tinnitus Physical Therapy Inpatient Evaluation/Re-Eval M1 PT/OT-IP Prior Functional Status Start: 03/08/21 14:36 Freq: NEEDED Status: Discharge Protocol: Document 03/09/21 10:16 AB (Rec: 03/09/21 13:20 AB [id number]) Medical Review Prior Functional Status Medical History Reviewed Yes Communication able to make needs known Mobility and Gait pt stated that she is independent with all mobilities and ambulation without AD Social History Household Members spouse Living Arrangements House Number of Floors (Floors) One Floor Number of Stairs To Enter/Railing? 1 platform step to enter Home Environment High Toilet,Walk in Shower Home Equipment Straight Cane,Shower Seat with Backrest,Hand Held Shower, Grab Bars In Shower Additional Social History Comment pt stated that spouse is in [place] at this time with her daughter. stated that her spouse was diagnosed with dementia and will be staying in [place] for a few more weeks. stated that her sister will be able to stay with her for a few days. sister lives close by and can assist as needed afterwards. M2 PT-IP Current Condition Start: 03/08/21 14:36 Freq: NEEDED Status: Discharge Protocol: Document 03/09/21 10:16 AB (Rec: 03/09/21 13:20 AB [id number]) Physical Therapy Current Condition Current Condition Evaluation Date 03/09/21 Treatment Diagnosis s/p L TSA; difficulty in walking Onset Date 03/08/21 Precautions Shoulder Precautions Sling,PROM,Internal Rotation to Body,No External Rotation, No Abduction,Forward Flexion to 90 degrees,Pendulums Brace per Dr. Lainez: can use arm in front of body below shoulder leve, lifting no more than 1# for 6 weeks Weight Bearing Status Weight Bearing Status Non-Weight Bearing Allowed Weight Bearing Amount (enter % LUE NWB or #) (%) M3 PT-IP Subjective Start: 03/08/21 14:36 Freq: NEEDED Status: Discharge Protocol: Document 03/09/21 10:16 AB (Rec: 03/09/21 13:20 AB [id number]) Subjective Physical Therapy Visit Type Type Initial Evaluation Visit Start Time 10:16 Visit Stop Time 11:26 Total Visit Minutes 70 Number of OPERATION SPECIALIST Visits 0 Physical Therapy Visit Comments Patient Comments agreeable to do PT Therapy Pain Assessment Pain Present Pain Present Denied Pain M4 PT-IP Mobility and Gait Start: 03/08/21 14:36 Freq: NEEDED Status: Discharge Protocol: Document 03/09/21 10:16 AB (Rec: 03/09/21 13:20 AB [id number]) PT-Bed Mobility Assessment Supine to Sit Supine to Sit Standby Assistance PT-Transfer Assessment Sit to and From Stand Sit to and from Stand Standby Assistance,1 Person Assistance,Use of Upper Extremities Equipment Transfer Assistive Device None,Gait Belt Orthotic/Prosthetic Devices or Brace: Yes Transfers Transfer Destination Chair Transfer Technique ambulated Transfer Ability Level of Assist Standby Assistance,Use of Upper Extremities Comments Mobility Comments pt educated regarding shoulder precautions and sling management. stated that her sister will assist her at home . asked pt if she can have her sister come in for training. pt called her sister and pt initially does not want to come in due to fear of covid pts. informed pt and sister that since pt plans to go home today and pt needs assistance with sling management, training is recommended unless they refuse and they can manage it safely . sister agreed to come in. pt completed supine to sit SBA . presents with difficulty completing the task and stated that her R shoulder also has rotator cuff issues. pt sat on EOB. educated on pendulum, elbow/wrist/hand exercises. educated on precautions again. pt with difficulty recalling . Sister came in. informed again regarding pt's shoulder precautions, exercises. pt completed elbow/wrist/hand exercises, scap retraction and attempted pendulum but pt with increase L shoulder guarding unable to safety complete pendulum. educated on dressing needs/positioning. caregiver training conducted for sling mangement. PT demonstrated and instructed pt 's sister on how to management sling. sister counter demonstrated and initially requires cues and assist on how to complete. Sister repeated sling management and completed 2nd set with less cues. pt ambulated in room without AD SBA ~ 30 ft. antalgic gait with decreas step elevation. pt stated that the medication make her feel oozy. completed up/down step min A usign SPC. caregiver training for stair climbing. Sister is hesistant with assisting pt and stated that she has back problems. Asked pt's sister when does she wants PT to do since she is the one who is going to assist pt at home and training has to be conducted for safe d/c. sister then agreed. educated pt's sister on how to use safety belt and how to assist pt. sister was able to put safety belt on ininitally with cues and assist from PT. repeated again and was able to complete . assisted pt with up/down step stool x 2 sets and was able to assist pt safely. pt ambulated in room with SPC SBA 20 ft. pt agreed to sit on chair. positioned on chair. call light and table placed within reach. pt and sister has no further concerns. Gait Assessment Gait Gait Assistance Required: Standby Assistance Distance (Feet) 30 Able to Maintain Weight Bearing Status Yes During Gait Assistive Devices Assistive Device None,Gait Belt,Straight Cane Orthotic/Prosthetic Devices or Brace: No Gait Deviations General Gait Pattern Antalgic,Lateral Trunk Lean, Step-to Gait Factors Limiting Gait Function Factors Limiting Gait Function Decreased Activity Tolerance, Decreased Strength,Difficulty Following Directions,Limited Range of Motion,Poor Balance, Poor Safety Awareness Comments Gait Comments pls refer to mobility section for details Stair Climbing Assessment Evaluation Level of Assist On Stairs Contact Guard Assistance, Minimal Assistance,1 Person Assistance Devices Stair Climbing Assistive Devices Straight Cane Technique/Endurance Stair Climbing Direction Ascend and Descend Stair Climbing Technique Step to Step Number of Steps Climbed 1 Query Text: Stair Climbing Set # Repetitions (reps) 3 PT-Balance Assessment Sitting Balance and Reactions Static Sitting Balance Ability Normal Dynamic Sitting Balance Ability Normal Standing Balance and Reactions Static Standing Balance Ability Good Dynamic Standing Balance Ability Fair Device Used without AD M5 PT-IP Objective Assessments Start: 03/08/21 14:36 Freq: NEEDED Status: Discharge Protocol: Document 03/09/21 10:16 AB (Rec: 03/09/21 13:20 AB [id number]) Orientation Orientation/Cognition Level of Alertness Alert Orientation Name,Place,Situation Safety Awareness Decreased Safety Awareness Memory Description Short Term Impaired Gross Range of Motion Lower Extremity ROM Assessment Within Functional Limits Strength Lower Extremity Strength Assessment Within Functional Limits Muscle Tone Muscle Tone WNL Yes M6 PT-IP Treatment Start: 03/08/21 14:36 Freq: NEEDED Status: Discharge Protocol: Document 03/09/21 10:16 AB (Rec: 03/09/21 13:20 AB [id number]) Physical Therapy Treatment Education Education Provided Precautions,Weight Bearing Status,Post-Op Packet,Safety Brace Education [place],Patient, Caregiver M7 PT-IP Assessment and Plan Start: 03/08/21 14:36 Freq: NEEDED Status: Discharge Protocol: Document 03/09/21 10:16 AB (Rec: 03/09/21 13:20 AB [id number]) PT Summary Assessment and Plan Potential Rehabilitation Potential Good Status of Condition at Evaluation Stable Summary Impairments Pain,ROM,Strength,Balance, Coordination,Sensation,Tone, Cognition,Bed Mobility, Transfers,Gait,Activity Tolerance Assessment Summary pt requiring CGA to min A with stair climbing, SBA with ambulation. caregiver training conducted and pt's sister will assist her at home . pt may go home when medically stable. Goals Bed Mobility Goal Independent Transfer Goal Independent Gait Goal Independent Gait Distance 250 Other Goals up/down one step without AD SBA Days to Meet Goals 3 Frequency of Treatment Frequency Of Treatment Twice a Day Treatment Plan Physical Therapy Treatment Plan Bed Mobility Training,Transfer Training,Gait Training, Therapeutic Exercise,Balance Retraining,Post Op Education, Discharge Planning,Hot or Cold Pack,Neuromuscular Re-ed, Coordination Retraining,Manual Therapy Precautions Shoulder Precautions Sling,PROM,Internal Rotation to Body,No External Rotation, No Abduction,Forward Flexion to 90 degrees,Pendulums Other Precautions per Dr. Lainez: can use arm in front of body below shoulder leve, lifting no more than 1# for 6 weeks NWB LUE Recommendations To Nursing Amount of Assist Needed 1 Person Assist Discharge Recommendations PT Discharge Recommendations Home with Assistance, Outpatient PT Transportation Needs at Discharge Private Vehicle
--- NOTE | 2021-03-09 12:00 | PC.NURSE ---
A&Ox4. VSS. Pain 12/03, relieved with PRN oxycodone. Evaluated by PT. IV removed. Cap refill <2 sec, normal sensation. Dressing cdi. Discharge instructions reviewed. Questions answered. Wheeled off of unit at 12:15.
--- NOTE | 2021-03-09 14:56 | CM.DANOTE ---
DCP/Assessment: Reviewed chart. Patient is a 75yr female admitted to [facility] for a left TSA performed on 03-08-[address] Lainez. PCP is Dr. Pineda. Primary payor is 1)[facility] Medicare ADV. 2)Self pay. Attempted to meet with patient today to discuss d/c planning however, patient discharged before seen. Nursing reports that patient had no d/c planning needs. P: Home today. KJS Discharge Planning/Care Management CM Discharge Assessment Start: 03/09/21 14:51 Freq: Status: Active Protocol: Document 03/09/21 14:51 KJS (Rec: 03/09/21 14:56 KJS [id number]) Discharge Planning Assessment Assigned Fun House Operator CHEPE Cheung Contact Information Temitope Motta (sister) # [phone] Advance Directives? Yes Advance Directives on File No History Provided By Medical Record Prior Living Arrangements House Household Members spouse Independent with ADL's Yes Is patient alert and oriented? Yes Caregiver for Another No Barriers to Discharge No Discharge Plan Home Transportation Arrangement Family to provide transport. Referrals Initiated None needed Whiteboard Updated in Patient Room with Yes name and ext. # of Fun House Operator Review Status In Process Next Review Type Continued Stay Review Pre-Anesthesia Assessment Start: 03/02/21 13:58 Freq: Status: Complete Protocol: Document 03/03/21 09:01 CAB (Rec: 03/02/21 15:17 CAB [id number]) Pre-Anesthesia Assessment PAC Comment Pt's recently diagnosed with a form of dementia. He is unable to provide any assistance with care, etc., very stressful Patient Information Reviewed Via Phone Assessment Assessment Completed With Patient Diagnostic Results BMP/CMP,CBC,EKG Comment Outside labs/EKG scanned, COVID screen-pt needs to schedule Primary Care Provider Keely Pineda Specialist Seen Monomer Recovery Operator,Orthopedist, Rn Or Lvn Primary Language Persian English And Reading Instructor Required Yes Height 160.02 cm Weight 67.585 kg Body Mass Index (BMI) 26.4 Hearing Ability Normal Visual Assist Glasses Dentition Type Teeth, Natural Present Barriers to Learning None Hx Anesthesia Reactions No Hx Family Anesthesia Reaction No Hx Malignant Hyperthermia No Hx Blood Transfusions No Anesthesia Review Requested No alcohol intake current alcohol intake frequency 0-2 drinks per day Smoking Status Never smoker Substance Use Type does not use Pain Present Pain Reported Musculoskeletal Symptoms Abnormal Gait,Joint Pain, Limited Range of Motion History of Falling (Recent or History of No ) Patient is completely paralyzed or No completely immobile Mental Status Oriented to own ability Is patient on oxygen? No Does patient have CRUMP/SOB No Hx Sleep Apnea No Currently Taking a Beta Simone No Can You Climb a Flight of Stairs Without No SOB Hx Chest Pain No Hx SOB No Hx Syncope or Dizziness No Anti-Coagulant Therapy No Has a Monomer Recovery Operator Yes: Dr. Powell visit 02/12/21 Hx Pacemaker/ICD No Pacemaker Rep Required? No Comment Cardiac records scanned Diet Type At Home Regular dysphagia No Gastrointestinal Symptoms Bloating,Diarrhea,Reflux Bladder Pattern Frequency,Urgency Urinary Catheter Present No Hx Urinary Self Catheterization No Diabetes No Patient No Lactating No Hx Drug Resistant Organism No Presence of External or Internal Medical Yes: Hardware in BUE/Knees, Devices bilat IOLs Have you had any close contact with No someone diagnosed with COVID-19? Marital Status Lives With spouse Prior Living Arrangements House Number of Floors (Floors) One Floor Support System Sibling(s) Does the Patient Have Assistance After No: has dementia, Surgery unable to assist with care Patient Discharge Plan Description Return Home Comment Sister will stay to assist with care upon discharge Additional comment Pt advised overnight length of stay per surgeon Feels Safe in Current Environment Yes Been Physically Hurt or Threatened By a No Person in Current Environment Do you have thoughts of harming yourself None or others? Are you currently considering suicide? No Do you have a plan to hurt yourself or No Plan others? Do You Have Any Spiritual Beliefs That No May Affect Your HC Choices? Do You Have Any Cultural Practices That No May Affect Your HC Choices? Comment Mariano Who Can We Speak to About Patient's Care Family, friends Identifying Code for Release of Patient Declines to issue Information Health Care Proxy/Next of Kin Temitope (sister) Health Care Proxy Emergency Contact Name Temitope (sister) Emergency Contact Advance Directives? Yes: POLST,DPOA, HC Directive PAC Instructions Durable medical equipment, Medications to take/avoid, Nasal antibiotic,No ETOH/ petroleum product on skin DOS, NPO,Post-op transportation,Pre -surgical wash,Sturdy shoes/ comfortable clothes,Do not bring valuables and remove jewelry
== END 2021-03-09 12:15 | disposition home or self-care (01) ==
LOC: OR 08:19 → AC 08:20
PROVIDERS: PCP Family Medicine; Referring Provider Orthopaedic Surgery; Visit Provider Orthopaedic Surgery
PROC: (CPT 23472; principal; 2021-03-08 10:15)
DX: M75.122 Complete rotator cuff tear or rupture of left shoulder, not specified as traumatic (principal); J45.909 Unspecified asthma, uncomplicated; K21.9 Gastro-esophageal reflux disease without esophagitis; I10 Essential (primary) hypertension; E78.5 Hyperlipidemia, unspecified; E03.9 Hypothyroidism, unspecified; F41.9 Anxiety disorder, unspecified; F32.9 Major depressive disorder, single episode, unspecified
CPT/HCPCS: 23472; 36415; 73020; 85014; 85018; 94760; 97161; 97530; C1776; A9270; C9290; J0330; J0690; J1100; J1170; J2250; J2405; J3010

== ENCOUNTER → 2021-04-27 15:01 | Outpatient (CLI) | payer OTHER, SELFPAY ==
[2021-03-08 08:33] VITALS: BMI 26.4
--- NOTE | 2021-04-27 | DI.RAD.S_ITS ---
PROCEDURE: XR CHEST 2V INDICATIONS: R05.9 TECHNIQUE: 2 views of the chest were acquired. COMPARISON: [facility], CR, XR CHEST 2V, 04/02/2019, 10:55. FINDINGS: Surgical changes and devices: None. Lungs and pleura: No consolidation, pleural effusions or pneumothorax. Mediastinum: Mediastinal contours are normal. Heart size is normal. Bones and chest wall: No suspicious bony abnormality. Interval placement of a left shoulder arthroplasty. Soft tissues appear unremarkable. IMPRESSION: No acute cardiopulmonary abnormality. Dictated by: Rivas Calvert M.D. on 04/27/2021 at 15:45 Approved by: Rivas Calvert M.D. on 04/27/2021 at 15:46
== END ==
PROVIDERS: PCP Family Medicine; Referring Provider Family Medicine; Visit Provider Family Medicine
DX: R01.1 Cardiac murmur, unspecified (principal); R05.9 Cough, unspecified
CPT/HCPCS: 71046

== ENCOUNTER → 2021-06-15 15:00 | Outpatient (CLI) | payer OTHER, SELFPAY ==
[2021-03-08 08:33] VITALS: BMI 26.4
--- NOTE | 2021-06-15 15:02 | DI.ECHO.S_ITS ---
[place] [facility]---------+ [facility] +---------+ : : [address] : [address] : : : : [id number] : : : : Phone: [phone]+ Echocardiogram Report + + :Name: DANITZA ADHIKARI Study Date: 06/15/2021 Height: 63 in : :[facility] ReadingLocation: Weight: 153 lb : : Gender: Female BSA: 1.7 m2 : :: 1945 Age: 75 yrs BP: 154/89 mmHg: :Reason For Study: MURMUR : :Ordering Physician: TITUS, : :FIORELLA Performed By: Nini Bethea : :Referring: FIORELLA QURESHI : + + Interpretation Summary The left ventricle is normal in size. The ejection fraction is estimated to be 60-65%. The right ventricle is normal in size and function. The aortic valve is not well visualized. There is mildly reduced leaflet mobility. There is no hemodynamically significant valvular aortic stenosis. There is mild luminal irregularity and echogenicity in the abdominal aorta, suggestive of aortic atherosclerotic disease. Procedure: A two-dimensional transthoracic echocardiogram with color flow and Doppler was performed. The study quality was technically adequate. There is no prior echocardiogram noted for this patient. The patient was in sinus rhythm with heart rates between 73-81 bpm during the exam. Left Ventricle: The left ventricle is normal in size. Proximal septal thickening is noted. There is no echo evidence for significant left ventricular outflow tract obstruction. There is no thrombus. The ejection fraction is estimated to be 60-65%. There are no focal wall motion abnormalities. MV E/A: 1.3 Med Peak E' Venkata: 6.8 cm/sec E/E' med: 10.5. Right Ventricle: The right ventricle is normal in size and function. Atria: The left atrium is moderately dilated. Right atrial size is normal. There is no Doppler evidence for an interatrial shunt. Mitral Valve: The mitral valve leaflets are slightly calcified. There is trace mitral regurgitation. Aortic Valve: The aortic valve is mildly calcified. The aortic valve is not well visualized. There is mildly reduced leaflet mobility. There is no hemodynamically significant valvular aortic stenosis. No aortic regurgitation is present. Tricuspid Valve: The tricuspid valve is normal in structure and function. There is trace tricuspid regurgitation. Pulmonary artery pressures cannot be estimated because of the lack of a measurable TR jet velocity but the IVC suggests a CVP of around 8 mmHg. Pulmonic Valve: The pulmonic valve is not well visualized. There is no pulmonic valvular regurgitation. Great Vessels: The aortic root is normal size. The ascending aorta could not be visualized. There is mild luminal irregularity and echogenicity in the abdominal aorta, suggestive of aortic atherosclerotic disease. The IVC is dilated (diameter is greater than 2.1 cm) yet it collapses greater than 50% with a sniff. This suggests a right atrial pressure of 8 mm Hg. Pericardium/ Pleura There is no pericardial effusion. There is no pleural effusion. MMode/2D Measurements & Calculations LVIDd: 4.0 cm LVOT diam: 1.9 cm LVIDs: 2.7 cm Ao root diam: 2.9 cm FS: 32.8 % Ao Arch Diam (Prox Trans): 2.6 cm IVSd: 0.68 cm LVPWd: 0.93 cm LV bravo. diameter/BSA (cm/m^2): 2.3 LV sys. diameter/BSA (cm/m^2): 1.6 LA A2 area: 21.6 cm2 RA long axis: 5.4 cm LA A4 area: 22.3 cm2 RA area: 16.4 cm2 LA length (vol): 5.8 cm RA vol: 42.1 ml LA vol: 71.1 ml RA : 24.4 ml/m2 LA vol index: 41.2 ml/m2 IVC diam: 2.3 cm RVD1 (basal): 3.3 cm TAPSE: 1.6 cm Doppler Measurements & Calculations Ao V2 max: 184.2 cm/sec LVOT Max Venkata: 149.5 cm/sec Ao V2 mean: 128.3 cm/sec LV V1 max P.9 mmHg Ao max P.6 mmHg LV V1 VTI: 29.8 cm Ao mean P.4 mmHg JACK(I,D): 2.2 cm2 Ao V2 VTI: 38.4 cm JACK(V,D): 2.3 cm2 sev ratio: 0.78 JACK indexed to BSA (cm^2/m^2): 1.3 MV E max venkata: 71.5 cm/sec SV(LVOT): 84.5 ml MV A max venkata: 55.4 cm/sec MV E/A: 1.3 Med Peak E' Venkata: 6.8 cm/sec E/E' med: 10.5 Lat Peak E' Venkata: 7.7 cm/sec E/E' lat: 9.3 E/e' average: 9.9 MV dec time: 0.17 sec Reading Physician:05:56 PM
== END ==
PROVIDERS: PCP Family Medicine; Referring Provider Family Medicine; Visit Provider Family Medicine
DX: R01.1 Cardiac murmur, unspecified (principal)
CPT/HCPCS: 93306

== ENCOUNTER → 2022-08-01 08:41 | Outpatient (CLI) | payer OTHER, SELFPAY ==
[2022-07-11 12:01] VITALS: BMI 26.4
--- NOTE | 2022-08-01 | DI.ECHO.S_ITS ---
[place] [facility]---------+ [facility] +---------+ : : [address] : [address] : : : : [id number] : : : : Phone: [phone]+ Echocardiogram Report + + :Name: DANITZA ADHIKARI Study Date: 08/01/2022 Height: 63 in : :[facility] ReadingLocation: Weight: 145 lb : : Gender: Female BSA: 1.7 m2 : :: 1945 Age: 76 yrs BP: 129/79 mmHg: :Reason For Study: CARDIAC MURMUR : :Ordering Physician: : :MITZI CHRISTINE Performed By: Nini Bethea : :Referring: SIA CHRISTINE : + + Interpretation Summary Normal left ventricle size with ejection fraction 60-65%. Mildly dilated left atrium. Mild aortic stenosis. Comparison is made with the echocardiogram of 06/15/2021, mild aortic stenosis is new. Procedure: A two-dimensional transthoracic echocardiogram with color flow and Doppler was performed. The study quality was technically adequate. Comparison is made with the echocardiogram of 06/15/2021. The patient was in sinus rhythm with heart rates between 64-86 bpm during the exam. Left Ventricle: The left ventricle is normal in size and wall thickness. The ejection fraction is estimated to be 60-65%. There are no focal wall motion abnormalities. Right Ventricle: The right ventricle is normal in size and function. Atria: The left atrium is mildly dilated. Right atrial size is normal. There is no Doppler evidence for an interatrial shunt. Mitral Valve: The mitral valve leaflets are slightly calcified. There is a flat closure plane of the the mitral valve leaflets. There is trace mitral regurgitation. Aortic Valve: The aortic valve is not well visualized. The aortic valve is moderately calcified. There is mild aortic stenosis. The peak aortic velocity is 2.16 m/sec. The aortic valve mean gradient is 19 mmHg. The calculated aortic valve area is 1.9 cm2. No aortic regurgitation is present. Tricuspid Valve: The tricuspid valve is normal in structure and function. There is trace tricuspid regurgitation. The right ventricular systolic pressure is estimated to be at least 28 mmHg based on an estimated right atrial pressure of 8 mm Hg. Pulmonic Valve: The pulmonic valve is not well seen, but is grossly normal. There is no pulmonic valvular regurgitation. Great Vessels: The aortic root is normal size. The dimensions of the ascending aorta are normal. The IVC is dilated (diameter is greater than 2.1 cm) yet it collapses greater than 50% with a sniff. This suggests a right atrial pressure of 8 mm Hg. Pericardium/ Pleura There is no pericardial effusion. There is no pleural effusion. MMode/2D Measurements & Calculations LVIDd: 4.2 cm LVOT diam: 1.9 cm LVIDs: 2.7 cm Ao root diam: 3.0 cm FS: 36.0 % asc Aorta Diam: 2.8 cm IVSd: 1.00 cm Ao Arch Diam (Prox Trans): 2.6 cm LVPWd: 0.92 cm LV bravo. diameter/BSA (cm/m^2): 2.5 LV sys. diameter/BSA (cm/m^2): 1.6 LA A2 area: 21.5 cm2 RA long axis: 5.0 cm LA A4 area: 23.4 cm2 RA area: 17.7 cm2 LA length (vol): 5.8 cm RA vol: 53.3 ml LA vol: 73.7 ml RA : 31.6 ml/m2 LA vol index: 43.7 ml/m2 IVC diam: 2.1 cm RVD1 (basal): 3.6 cm RVD2 (mid): 2.8 cm TAPSE: 1.7 cm Doppler Measurements & Calculations Ao V2 max: 216.3 cm/sec LVOT Max Venkata: 142.1 cm/sec Ao V2 mean: 138.3 cm/sec LV V1 max P.1 mmHg Ao max P.7 mmHg LV V1 VTI: 32.4 cm Ao mean P.7 mmHg JACK(I,D): 2.1 cm2 Ao V2 VTI: 43.4 cm JACK(V,D): 1.9 cm2 sev ratio: 0.75 JACK indexed to BSA (cm^2/m^2): 1.3 MV E max venkata: 70.1 cm/sec TR max venkata: 223.8 cm/sec MV A max venkata: 61.1 cm/sec TR max P.0 mmHg MV E/A: 1.1 PA V2 max: 106.9 cm/sec Med Peak E' Venkata: 6.3 cm/sec PA V2 mean: 73.3 cm/sec E/E' med: 11.1 PA mean P.4 mmHg Lat Peak E' Venkata: 7.1 cm/sec PA pr(Accel): 49.9 mmHg E/E' lat: 9.9 E/e' average: 10.5 MV dec time: 0.17 sec SV(LVOT): 91.9 ml Electronically signed by: Carter Sky on Reading Physician:08/01/2022 02:33 PM
--- NOTE | 2022-08-01 | DI.US.S_ITS ---
PROCEDURE: US CAROTID DOPPLER BI INDICATIONS: BILATERAL BRUITS TECHNIQUE: Color and pulse Doppler interrogation was performed of both carotid systems, with image documentation and velocity measurements. COMPARISON: None. FINDINGS: Stenosis calculations are based on SRU (Society of Radiologists in Ultrasound) criteria. Right side: Brachial blood pressure: 133/79 mm Hg. Common carotid artery peak systolic velocity: 82 cm/sec. Internal carotid artery peak systolic velocity: 84 cm/sec. Internal carotid artery end diastolic velocity: 29 cm/sec. External carotid artery peak systolic velocity: 92 cm/sec. ICA/CCA peak systolic ratio: 1.0. Roy scale imaging description: Mild calcified plaque. Percent internal carotid artery stenosis: Less than 50% stenosis. Vertebral artery: Flow direction is antegrade. Left side: Brachial blood pressure: 129/81 mm Hg. Common carotid artery peak systolic velocity: 100 cm/sec. Internal carotid artery peak systolic velocity: 76 cm/sec. Internal carotid artery end diastolic velocity: 20 cm/sec. External carotid artery peak systolic velocity: 103 cm/sec. ICA/CCA peak systolic ratio: 0.8. Roy scale imaging description: Mild calcified plaque. Percent internal carotid artery stenosis: Less than 50% stenosis. Vertebral artery: Flow direction is antegrade. IMPRESSION: 1. Right ICA: Less than 50 % stenosis. 2. Left ICA: Less than 50 % stenosis. 3. Antegrade flow in the bilateral vertebral arteries. Dictated by: Evaristo Dixon M.D. on 08/01/2022 at 10:23 Approved by: Evaristo Dixon M.D. on 08/01/2022 at 10:25
[2022-08-01 12:20] LABS: Add Manual Diff / Slide Review NO; Basophils Absolute Auto 0 /uL (0-100); Basophils Percent Auto 0.7 % (0-2); Eosinophils Absolute Auto 0 /uL (0-450); Eosinophils Percent Auto 0.8 % (2-4); Hematocrit 39.7 % (36-46); Hemoglobin 13.6 g/dL (12.0-16.0); Lymphocytes Absolute Auto 1600 /uL (1100-4500); Lymphocytes Percent Auto 32.4 % (25-40); Mean Corpuscular HGB Conc 34.3 % (30-36); Mean Corpuscular Hemoglobin 31.7 PG (26-34); Mean Corpuscular Volume 92.4 fL (80-100); Monocytes Absolute Auto 500 /uL (0-900); Monocytes Percent Auto 9.6 % (3-14); Neutrophils Absolute Auto 2700 /uL (1500-7000); Neutrophils Percent Auto 56.5 % (50-75); Platelet Count 272 X10^3/uL (150-400); Red Cell Distribution Width 12.7 % (11.6-14.8); White Blood Cell Count 4.8 X10^3/uL (4.5-11.0)
[2022-08-01 13:12] LABS: Alanine Aminotransferase 16 IU/L (<35); Albumin 4.1 g/dL (3.5-5.0); Albumin Globulin Ratio 1.4 (1.0-2.8); Alkaline Phosphatase 51 U/L (38-126); Aspartate Aminotransferase 25 IU/L (14-36); BUN Creatinine Ratio 17.7 (6-22); Bilirubin Total 0.6 mg/dL (0.2-1.3); Blood Urea Nitrogen 11 mg/dL (7-17); Calcium 9.1 mg/dL (8.4-10.2); Carbon Dioxide 29 mmol/L (22-32); Chloride 98 mmol/L (98-107); Cholesterol 299 mg/dL (140-199); Estimated Glomerular Filt Rate > 60 mL/min (>60); Globulin 2.9 g/dL (1.7-4.1); Glucose 87 mg/dL (80-110); HDL Cholesterol 99 mg/dL (40-60); HEMOLYSIS < 15 (0-50); LDL Cholesterol Calculated 181 mg/dL (<100); Sodium 134 mmol/L (137-145); Triglycerides 96 mg/dL (35-150)
[2022-08-01 13:41] LABS: TSH w/ Reflex to FT4 0.21 uIU/mL (0.47-4.68)
[2022-08-01 15:27] LABS: Free T4, Direct Thyroxine 2.07 ng/dL (0.78-2.19)
== END ==
PROVIDERS: PCP Family Medicine; Referring Provider Physician Assistant; Visit Provider Physician Assistant
DX: I65.23 Occlusion and stenosis of bilateral carotid arteries (principal); R01.1 Cardiac murmur, unspecified; R09.89 Other specified symptoms and signs involving the circulatory and respiratory systems; I35.0 Nonrheumatic aortic (valve) stenosis; E03.9 Hypothyroidism, unspecified; E78.2 Mixed hyperlipidemia; I10 Essential (primary) hypertension
CPT/HCPCS: 36415; 80053; 80061; 84439; 84443; 85025; 93306; 93880

== ENCOUNTER 2022-09-06 14:12 | Emergency (ER) | payer OTHER, SELFPAY ==
[2022-07-11 12:01] VITALS: BMI 26.4
[2022-09-06 14:16] VITALS: BP 195/95; PULSE 87; RESP 16; TEMP 36.9; O2SAT 99; BMI 26.2
--- NOTE | 2022-09-06 14:25 | DI.RAD.S_ITS ---
PROCEDURE: XR KNEE LT 3V INDICATIONS: fall, knee pain TECHNIQUE: 3 views of the knee were acquired. COMPARISON: [facility], CR, XR KNEE RT 3V, 01/16/2019, 12:54. FINDINGS: Bones: No fractures or dislocations. No suspicious bony lesions. Knee arthroplasty is present. Hardware is intact without hardware fracture or periprosthetic lucency to suggest loosening. Soft tissues: Mild joint effusion. No suspicious soft tissue calcifications. IMPRESSION: Mild effusion. No visualized acute fracture or dislocation. However, if clinical concern and/or pain persist, short interval imaging followup in 7-10 days is recommended, as occult injury cannot be definitively excluded. Dictated by: Olena Bass M.D. on 09/06/2022 at 15:21 Approved by: Olena Bass M.D. on 09/06/2022 at 15:21
--- NOTE | 2022-09-06 14:25 | DI.CT.S_ITS ---
PROCEDURE: CT HEAD/BRAIN WO CON INDICATIONS: fall t-1, hit head TECHNIQUE: Noncontrast 4.5 mm thick angled axial sections acquired from the foramen magnum to the vertex, with coronal and sagittal reformats. For radiation dose reduction, the following was used: automated exposure control, adjustment of mA and/or kV according to patient size. COMPARISON: [facility], CT, CT HEAD/BRAIN WO CON, 01/16/2019, 13:40. FINDINGS: Image quality: Excellent. CSF spaces: Basal cisterns are patent. No extra-axial fluid collections. The ventricles are symmetric in size and shape. Brain: No intracranial bleeds or masses. There is cerebral volume loss for age, with resultant ventricular and sulcal prominence. There are periventricular and deep white matter chronic small vessel ischemic changes. There is intracranial internal carotid artery atherosclerosis. Skull and face: Calvarium and visualized facial bones appear intact, without suspicious lesions. Sinuses: Visualized sinuses and mastoids are clear. IMPRESSION: No acute intracranial disease process. Dictated by: Bharati Hopson MD, PhD on 09/06/2022 at 14:43 Approved by: Bharati Hopson MD, PhD on 09/06/2022 at 14:45
--- NOTE | 2022-09-06 14:28 | DI.CT.S_ITS ---
PROCEDURE: CT CERVICAL SPINE WO CON INDICATIONS: fall t-1, hit head TECHNIQUE: Noncontrast 3 mm thick sections acquired from the skull base to the T4 level. Sagittal and coronal reformats were then constructed. For radiation dose reduction, the following was used: automated exposure control, adjustment of mA and/or kV according to patient size. COMPARISON: None. FINDINGS: Image quality: Excellent. Bones: No fractures or dislocations. Visualized superior ribs are intact. Spine degenerative disc disease and facet arthropathy. Soft tissues: Prevertebral soft tissues are normal in thickness. No paravertebral hematomas. No apical pneumothoraces. IMPRESSION: No fracture. No acute osseous lesion. If symptoms and/or clinical suspicion for pathology persists, evaluation with MRI should be considered for further assessment. Dictated by: Bharati Hopson MD, PhD on 09/06/2022 at 14:46 Approved by: Bharati Hopson MD, PhD on 09/06/2022 at 14:49
[2022-09-06] MEDS: LIDOCAINE PATCH 1 EACH ADH..PATCH TOP (17:53)
[2022-09-06 17:54] VITALS: BP 170/81; PULSE 82; RESP 18; O2SAT 99
--- NOTE | 2022-09-06 20:35 | ED_ITS ---
HPI - Fall <Juanis Curtis PA-C - Last Filed: 09/06/22 20:40> General Chief Complaint: Fall Stated Complaint: fell last night Time Seen by Provider: 09/06/22 17:05 Source: patient Mode of arrival: Ambulatory History of Present Illness HPI Narrative: 76-year-old female presents to the ED status post a fall sustained yesterday. Patient reports a mechanical fall when she reached for support towards her coffee table that was on wheels with a wheels unlocked. The coffee table rolled away from her and she fell along with it. Patient reports a head strike but no loss of consciousness. Patient is not on blood thinners. Patient complains of left-sided temporal pain and right sided neck pain. Patient also struck her left knee resulting in a bruise. Patient is able to bear weight and walk on the leg. Denies numbness, tingling, weakness. Patient denies fever, chills, chest pain, shortness of breath, nausea, vomiting, lightheadedness, dizziness, syncope. Related Data Home Medications Medication Instructions Recorded Confirmed Lactobacillus acidophilus and 1 cap PO DAILY 01/16/19 03/08/21 rhamnosus 15 billion cell capsule (Probiotic) amlodipine 5 mg tablet 5 mg PO QPM 01/16/19 03/08/21 ascorbic acid (vitamin C) 1,000 mg 1,000 mg PO DAILY 01/16/19 03/08/21 tablet (Vitamin C) cholecalciferol (vitamin D3) 10 10 mcg PO DAILY 01/16/19 03/02/21 mcg (400 unit) capsule (Vitamin D3) multivitamin 1 tab PO DAILY 01/16/19 03/08/21 albuterol sulfate 90 mcg/actuation 1 puff inhalation PRN PRN 04/15/19 03/08/21 aerosol inhaler Shortness Of Breath levothyroxine 137 mcg tablet 137 mcg PO DAILY 03/02/21 03/08/21 (Synthroid) Previous Rx's Medication Instructions Recorded oxycodone 5 mg tablet 5 mg PO Q4H PRN Pain, Moderate 03/09/21 (4-6) #40 tabs Allergies Allergy/AdvReac Type Severity Reaction Status Date / Time abaloparatide [From Tymlos] AdvReac Severe It made Verified 03/08/21 08:56 me feel really bad, aches, pains epinephrine [EPINEPHRINE] AdvReac Severe Flushed, Verified 03/08/21 08:56 SOB [id number]-[id number]-[id number] Reductase AdvReac Severe Heart Verified 03/08/21 08:56 Inhibitor attack [[id number] REDUCTASE symptoms INHIBITOR] tetracycline [TETRACYCLINE] AdvReac Severe Flushed, Verified 03/08/21 08:56 SOB ciprofloxacin [From CIPRO] AdvReac Intermediate Fushed, SOB Verified 03/08/21 08:56 VALER[facility] ROOT AdvReac Unknown Pt does Uncoded 03/08/21 08:56 not recall reaction Review of Systems <Juanis Curtis PA-C - Last Filed: 09/06/22 20:40> Review of Systems ROS Unobtainable: All systems reviewed & are unremarkable except as noted in HPI and below Constitutional Constitutional: Denies chills, Denies fatigue, Denies fever(s), Denies frequent falls, Reports headache(s), Denies lethargy and Denies weakness Eyes Eyes: Denies change in vision, Denies eye discharge, Denies irritation and Denies loss of vision ENT Ears, Nose, Mouth, and Throat: Denies change in voice, Denies dizziness, Reports headache(s), Reports neck pain, Denies sore throat and Denies throat swelling Cardiovascular Cardiovascular: Denies chest pain, Denies irregular heart rhythm, Denies lightheadedness, Denies palpitations, Denies dyspnea, Denies dyspnea on exertion and Denies orthopnea Respiratory Respiratory: Denies cough, Denies dyspnea, Denies dyspnea on exertion and Denies wheezing Gastrointestinal Gastrointestinal: Denies abdominal pain, Denies change in bowel habits, Denies diarrhea, Denies nausea and Denies vomiting Genitourinary Genitourinary: Denies hematuria, Denies flank pain, Denies urinary incontinence and Denies urinary urgency Musculoskeletal Musculoskeletal: Denies back pain, Denies muscle weakness, Reports neck pain, Denies numbness and Denies tingling Comments: L knee pain Integumentary/Breasts Skin/Breast: Denies pruritus, Denies erythema, Denies rash and Denies wounds Neurologic Neurologic: Denies behavioral changes, Denies confusion, Denies dizziness, Denies frequent falls, Reports headache(s), Denies loss of vision, Denies numbness, Denies tingling and Denies weakness Psychiatric Psychiatric: Denies anxiety, Denies behavioral changes, Denies confusion, Denies depression, Denies homicidal ideation and Denies suicidal ideation Endocrine Endocrine: Denies fatigue, Denies flushing and Denies palpitations Hematologic/Lymphatic Hematologic/Lymphatic: Denies easy bruising Allergic/Immunologic Allergic/Immunologic: Denies urticaria, Denies throat swelling and Denies wheezing Patient History <Juanis Curtis PA-C - Last Filed: 09/06/22 20:40> Medical History Anxiety and depression Arthritis Easy bruisability Environmental allergies GERD (gastroesophageal reflux disease) HLD (hyperlipidemia) HTN (hypertension) Hypothyroid Osteoarthritis Osteopenia Osteoporosis Skin cancer Tinnitus Surgical History H/O left wrist surgery (~2012) H/O right wrist surgery (~2009) History of bilateral knee replacement History of hysterectomy History of left knee replacement History of right knee joint replacement History of surgery History of surgery History of tonsillectomy and adenoidectomy Hx of appendectomy Hx of bilateral cataract extraction Hx of oophorectomy Hx of vein stripping Social History household members: spouse Smoking Status: Never smoker alcohol intake: current Smoking Status: Never smoker alcohol intake frequency: 0-2 drinks per day Substance Use Type: does not use Exam <Juanis Curtis PA-C - Last Filed: 09/06/22 20:40> Narrative Exam Narrative: Const General:?cooperative, healthy appearing and comfortable [facility] Head:?normal to inspection Ears:?hearing grossly normal bilaterally Nose:?external nose normal Face and sinus:?normal facial exam and sinuses nontender Mouth:?oral mucosae normal Throat:?posterior oropharynx normal Eyes General:?appearance normal, both eyes and all related structures Neck Neck:?normal visual inspection and no lymphadenopathy noted Resp Effort & Inspection:?normal respiratory effort Auscultation:?clear to auscultation bilaterally Cardio Rate:?regular rate Rhythm:?regular rhythm Neuro General:?patient alert, patient awake and patient oriented x3; CN 1 through 12 intact bilaterally; gait is normal; PERRLA Initial Vital Signs Initial Vital Signs: Vital Signs Temperature 98.5 F 09/06/22 14:16 Pulse Rate 87 03/14/23 14:16 Respiratory Rate 16 09/06/22 14:16 Blood Pressure 195/95 H 09/06/22 14:16 Pulse Oximetry 99 09/06/22 14:16 Oxygen Delivery Method Room Air 09/06/22 14:16 <Marisel Alston DO - Last Filed: 09/08/22 02:03> Initial Vital Signs Initial Vital Signs: Vital Signs Temperature 98.5 F 09/06/22 14:16 Pulse Rate 87 09/06/22 14:16 Respiratory Rate 16 09/06/22 14:16 Blood Pressure 195/95 H 09/06/22 14:16 Pulse Oximetry 99 09/06/22 14:16 Oxygen Delivery Method Room Air 09/06/22 14:16 Course <Juanis Curtis PA-C - Last Filed: 09/06/22 20:40> Orders Ordered: Discontinued Medications Lidocaine (Lidocaine Patch 1 Each Adh..Patch) 1 each TOP NOW ONE Stop: 09/06/22 17:45 Last Admin: 09/06/22 17:53 Dose: 1 each Documented By: AT Vital Signs Vital signs: Vital Signs - 8 hr 09/06/22 14:16 09/06/22 17:54 Temperature 98.5 F Pulse Rate 87 82 Respiratory Rate 16 18 Blood Pressure 195/95 H 170/81 H Pulse Oximetry 99 99 Oxygen Delivery Method Room Air Room Air <Marisel Alston DO - Last Filed: 09/08/22 02:03> Orders Ordered: Discontinued Medications Lidocaine (Lidocaine Patch 1 Each Adh..Patch) 1 each TOP NOW ONE Stop: 09/06/22 17:45 Last Admin: 09/06/22 17:53 Dose: 1 each Documented By: AT Vital Signs Vital signs: Vital Signs - 8 hr 09/06/22 14:16 09/06/22 17:54 Temperature 98.5 F Pulse Rate 87 82 Respiratory Rate 16 18 Blood Pressure 195/95 H 170/81 H Pulse Oximetry 99 99 Oxygen Delivery Method Room Air Room Air MDM - Fall <Juanis Curtis PA-C - Last Filed: 09/06/22 20:40> MDM Narrative Medical decision making narrative: 76-year-old female presents to the ED status post a fall sustained yesterday. Concern for intracranial bleed versus skull fracture versus hematoma versus C- spine fracture versus knee fracture versus other. Obtained CT head, CT C-spine, x-ray knee. No acute findings on imaging. Patient appears well in the ED, is A&O x4. Lidocaine patch was applied for the neck. Recommend continued use of lidocaine patch, Tylenol for the neck pain. ED return precautions were discussed with patient. Patient verbalized understanding. Medical records reviewed: Yes Discharge Plan Departure Patient Disposition: Home Clinical Impression: Head injury Instructions: How to Prevent Falls Activity Restrictions/Additional Instructions: You were evaluated in the ED today for a head injury from a fall. Your CT head, CT C-spine a knee x-ray did not show any acute findings such as fractures or dislocations or bleeds. You may take Tylenol for your neck pain. You may also use the [id number] salonpas patches. Return to the ED if you have worsening headache, confusion, loss of consciousness, worsening pain. Prescriptions: No Action levothyroxine [Synthroid] 137 mcg Tablet 137 mcg PO DAILY Patient Comments: Pt requires name brand synthyroid - will bring dos oxycodone 5 mg Tablet 5 mg PO Q4H PRN (Reason: Pain, Moderate (4-6)) Qty: 40 0RF amlodipine 5 mg tablet 5 mg PO QPM multivitamin Tablet 1 tab PO DAILY ascorbic acid (vitamin C) [Vitamin C] 1,000 mg Tablet 1,000 mg PO DAILY cholecalciferol (vitamin D3) [Vitamin D3] 10 mcg (400 unit) Capsule 10 mcg PO DAILY Probiotic 15 billion cell Capsule 1 cap PO DAILY albuterol sulfate 90 mcg/actuation HFA aerosol inhaler 1 puff INHALATION PRN PRN (Reason: Shortness Of Breath) Referrals: Keely Pineda MD [Primary Care Provider] - Stand Alone Forms: Patient Portal/API <Marisel Alston DO - Last Filed: 09/08/22 02:03> Cosign ED Attending Zaidature Attestation: I was immediately available in the department for consultation. Documentation has been reviewed.
== END 2022-09-06 17:54 | disposition home or self-care (01) ==
PROVIDERS: Emergency Provider Student in an Organized Health Care Education/Training Program; PCP Family Medicine
DX: S09.90XA Unspecified injury of head, initial encounter (principal); M25.562 Pain in left knee; W18.30XA Fall on same level, unspecified, initial encounter
CPT/HCPCS: 70450; 72125; 73562; 99284

== ENCOUNTER → 2022-09-08 12:27 | Outpatient (CLI) | payer OTHER, SELFPAY ==
[2022-07-11 12:01] VITALS: BMI 26.4
--- NOTE | 2022-09-08 | DI.RAD.S_ITS ---
PROCEDURE: XR WRIST RT MIN 3V INDICATIONS: right wrist pain, history of falling TECHNIQUE: Four views of the wrist were acquired. COMPARISON: [facility], , WRIST MINIMUM 3 VIEWS LEFT, 12/18/2012, 15:20. FINDINGS: Bones: There are distal radius and ulnar compression plates fixing remote, healed fracture deformities. The hardware appears intact. No acute fractures are visible. Bone alignment is normal. Mild osteoarthritic changes seen at the 1st CMC joint. Scaphoid view: Intact scaphoid. Soft tissues: No suspicious soft tissue calcifications. IMPRESSION: 1. No evidence of acute fracture. 2. Remote distal radius and ulnar fractures fixed by hardware. The hardware appears intact. Dictated by: Radha Holland M.D. on 09/08/2022 at 15:05 Approved by: Radha Holland M.D. on 09/08/2022 at 15:47
== END ==
PROVIDERS: PCP Family Medicine; Referring Provider Family Medicine; Visit Provider Family Medicine
DX: M25.531 Pain in right wrist (principal); Z91.81 History of falling; Z87.81 Personal history of (healed) traumatic fracture
CPT/HCPCS: 73110

== ENCOUNTER → 2023-06-22 10:19 | Outpatient (CLI) | payer MEDICARE, SELFPAY ==
[2022-07-11 12:01] VITALS: BMI 26.4
--- NOTE | 2023-06-22 | DI.RAD.S_ITS ---
Bone Density Report Name: DANITZA ADHIKARI Age: 77 Sex: Female Ethnicity: White Date of : 1945 Indication: postmenopausal; screening for osteoporosis; Referring Provider: FIORELLA QURESHI Study: Bone densitometry was performed. Exam Date: June 22, 2023 Accession number: [id number] Bone Density: Region BMD T-score Z-score Classification AP Spine(L1-L4) 0.882 -1.5 1.2 Osteopenia Femoral Neck (Left) 0.569 -2.5 -0.2 Osteoporosis Total Hip (Left) 0.623 -2.6 -0.6 Osteoporosis Femoral Neck (Right) 0.547 -2.7 -0.4 Osteoporosis Total Hip (Right) 0.628 -2.6 -0.5 Osteoporosis Total Hip Mean 0.626 -2.6 -0.6 Osteoporosis World Health Organization criteria for BMD impression classify patients as: Normal (T-score at or above -1.0), Osteopenia (T-score between -1.0 and -2.5), or Osteoporosis (T-score at or below -2.5). 10-year Fracture Risk: FRAX not reported because: Some T-score for Spine Total or Hip Total or Femoral Neck at or below -2.5 Impression: The patient has osteoporosis, based on the Right Femoral Neck T-score. Discussion: INCREASED RISK OF FRACTURE. BONE DENSITY IS UNDESIRABLY LOW AT ONE OR MORE SKELETAL SITES, CONSISTENT WITH POSTMENOPAUSAL OSTEOPOROSIS. This patient's lowest T-score meets the World Health Organization's (WHO) criteria for osteoporosis at one or more sites (T-score -2.5 or below). In untreated patients, the risk of osteoporotic fracture increases approximately two-fold for each 1.0 SD decrease in T-score. Low bone density is not the only risk factor for fracture; also consider factors such as patient's age, frailty or poor health, risk of falling, risk of injury, previous osteoporotic fracture, family history of osteoporosis, cigarette smoking, low body weight, etc. Not everyone with low bone mineral density has osteoporosis; osteomalacia and other metabolic bone disorders should also be considered. Patients who have osteoporosis should be evaluated for specific diseases and conditions (secondary causes) that may cause or contribute to bone loss. The [place] [employer]ocrinologists (AACE) and National Osteoporosis Foundation (NOF) recommend pharmacologic intervention for all postmenopausal women whose T-score is in this range. The patient should follow a healthful lifestyle (good nutrition with adequate calcium and vitamin D, and appropriate weight-bearing exercise). Follow-Up: Consider a repeat BMD and Vertebral Fracture Assessment (VFA) exam in 2 years or sooner if medically necessary, to reassess this patient's status. Reported by: AD ROSEN M.D. on 06/22/2023 10:57:00 AM.
== END ==
PROVIDERS: PCP Family Medicine; Referring Provider Family Medicine; Visit Provider Family Medicine
DX: M81.0 Age-related osteoporosis without current pathological fracture (principal)
CPT/HCPCS: 77080

== ENCOUNTER → 2023-08-02 09:10 | Outpatient (CLI) | payer MEDICARE, SELFPAY ==
[2022-07-11 12:01] VITALS: BMI 26.4
[2023-08-02 10:06] LABS: Add Manual Diff / Slide Review NO; Basophils Absolute Auto 0 /uL (0-100); Basophils Percent Auto 0.8 % (0-2); Eosinophils Absolute Auto 100 /uL (0-450); Eosinophils Percent Auto 1.2 % (2-4); Hematocrit 39.5 % (36-46); Hemoglobin 13.3 g/dL (12.0-16.0); Lymphocytes Absolute Auto 1600 /uL (1100-4500); Lymphocytes Percent Auto 36.9 % (25-40); Mean Corpuscular HGB Conc 33.7 % (30-36); Mean Corpuscular Hemoglobin 31.2 PG (26-34); Mean Corpuscular Volume 92.4 fL (80-100); Monocytes Absolute Auto 400 /uL (0-900); Neutrophils Absolute Auto 2200 /uL (1500-7000); Neutrophils Percent Auto 51.1 % (50-75); Platelet Count 276 X10^3/uL (150-400); Red Blood Cell Count 4.27 X10^6/uL (4.0-5.2); Red Cell Distribution Width 12.4 % (11.6-14.8); White Blood Cell Count 4.3 X10^3/uL (4.5-11.0)
[2023-08-02 10:26] LABS: Alanine Aminotransferase 13 IU/L (<35); Albumin Globulin Ratio 1.5 (1.0-2.8); Alkaline Phosphatase 46 U/L (38-126); Aspartate Aminotransferase 21 IU/L (14-36); BUN Creatinine Ratio 18.5 (6-22); Bilirubin Total 0.7 mg/dL (0.2-1.3); Blood Urea Nitrogen 12 mg/dL (7-17); Calcium 9.8 mg/dL (8.4-10.2); Carbon Dioxide 30 mmol/L (22-32); Chloride 100 mmol/L (98-107); Cholesterol 284 mg/dL (140-199); Estimated Glomerular Filt Rate > 60 mL/min (>60); Globulin 2.7 g/dL (1.7-4.1); Glucose 92 mg/dL (80-110); HDL Cholesterol 89 mg/dL (40-60); HEMOLYSIS < 15 (0-50); LDL Cholesterol Calculated 174 mg/dL (<100); Potassium 4.2 mmol/L (3.4-5.1); Sodium 133 mmol/L (137-145); Total Protein 6.7 g/dL (6.3-8.2); Triglycerides 104 mg/dL (35-150)
[2023-08-02 10:55] LABS: TSH w/ Reflex to FT4 0.09 uIU/mL (0.47-4.68)
[2023-08-02 11:15] LABS: Creatinine Urine Random 56.9 mg/dL
[2023-08-02 11:21] LABS: Free T4, Direct Thyroxine 1.77 ng/dL (0.78-2.19)
[2023-08-02 18:11] LABS: Microalbumin Urine Random < 0.6 mg/dL (0-1.6)
[2023-08-02 20:52] LABS: Appearance Urine UA CLEAR; Bilirubin Urine UA NEGATIVE (NEGATIVE); Color Urine UA YELLOW; Glucose Urine UA NEGATIVE (Negative); Ketones Urine UA NEGATIVE (NEGATIVE); Leukocyte Esterase Urine UA NEGATIVE (NEGATIVE); Nitrite Urine UA NEGATIVE (Negative); Occult Blood Urine UA NEGATIVE (Negative); Protein Urine UA NEGATIVE (Negative); Specific Gravity Urine UA <=1.005 (1.000-1.035); Urobilinogen Urine UA 0.2 E.U./dL (0.2); pH Urine UA 6.5 (4.5-8.0)
[2023-08-02 20:53] LABS: Urine Volume 10mL (spun)
[2023-08-02 20:55] LABS: Bacteria Urine None Seen; RBC Urine None Seen (0-5/HPF); Squamous Epithelial Cell Urine None Seen (0-5/HPF); WBC Urine None Seen (0-5/HPF)
[2023-08-02 20:56] LABS: Culture Indicated Urine Cult Not Indicated
== END ==
LOC: LAB 09:11
PROVIDERS: PCP Family Medicine; Referring Provider Family Medicine; Visit Provider Family Medicine
DX: I10 Essential (primary) hypertension (principal); E03.9 Hypothyroidism, unspecified
CPT/HCPCS: 36415; 80053; 80061; 81001; 82043; 82570; 84439; 84443; 85025

== ENCOUNTER 2023-11-27 15:43 | Emergency (ER) | payer MEDICARE, SELFPAY ==
[2022-07-11 12:01] VITALS: BMI 26.4
[2023-11-27 16:12] VITALS: BP 198/95; PULSE 87; RESP 18; TEMP 36.4; O2SAT 96; BMI 28.3
--- NOTE | 2023-11-27 16:16 | DI.CT.S_ITS ---
PROCEDURE: CT HEAD/BRAIN WO CON INDICATIONS: fall, head and neck pain TECHNIQUE: Noncontrast 4.5 mm thick angled axial sections acquired from the foramen magnum to the vertex, with coronal and sagittal reformats. For radiation dose reduction, the following was used: automated exposure control, adjustment of mA and/or kV according to patient size. COMPARISON: [facility], CT, CT HEAD/BRAIN WO CON, 09/06/2022, 14:33. FINDINGS: Image quality: Diagnostic. CSF spaces: Basal cisterns are patent. No extra-axial fluid collections. The ventricles are symmetric in size and shape. Brain: No intracranial bleeds or masses. There is cerebral volume loss for age, with resultant ventricular and sulcal prominence. There are periventricular and deep white matter chronic small vessel ischemic changes. There is intracranial internal carotid artery atherosclerosis. Skull and face: Calvarium and visualized facial bones appear intact, without suspicious lesions. Sinuses: Visualized sinuses and mastoids are clear. IMPRESSION: No acute intracranial pathology. Approved by: Savita Cedillo M.D.,Ph.D. on 11/27/2023 at 17:34
--- NOTE | 2023-11-27 16:16 | DI.CT.S_ITS ---
PROCEDURE: CT CERVICAL SPINE WO CON INDICATIONS: fall, head and neck pain TECHNIQUE: Noncontrast 3 mm thick sections acquired from the skull base to the T4 level. Sagittal and coronal reformats were then constructed. For radiation dose reduction, the following was used: automated exposure control, adjustment of mA and/or kV according to patient size. COMPARISON: [facility], CT, CT CERVICAL SPINE WO CON, 09/06/2022, 14:33. FINDINGS: Image quality: Diagnostic. Bones: No fractures or dislocations. Visualized superior ribs are intact. Soft tissues: Prevertebral soft tissues are normal in thickness. No paravertebral hematomas. No apical pneumothoraces. IMPRESSION: No acute displaced fracture or traumatic subluxation. Approved by: Savita Cedillo M.D.,Ph.D. on 11/27/2023 at 17:33
--- NOTE | 2023-11-27 16:17 | DI.RAD.S_ITS ---
PROCEDURE: XR WRIST RT MIN 3V INDICATIONS: fall, pain TECHNIQUE: 4 views of the wrist were acquired. COMPARISON: [facility], CR, XR WRIST RT MIN 3V, 09/08/2022, 12:40. FINDINGS: Bones: Status post distal radial and ulnar fixation using plate and screw construct. No evidence of hardware complication. Similar fracture deformities of the distal radius and ulnar. No acute fractures or dislocations. No suspicious bony lesions. Soft tissues: No suspicious soft tissue calcifications. IMPRESSION: No acute fracture. Stable postsurgical appearance of the distal radius and ulna. Approved by: Savita Cedillo M.D.,Ph.D. on 11/27/2023 at 17:30
--- NOTE | 2023-11-27 20:08 | ED.FALL ---
HPI - Fall General Chief Complaint: Fall Stated Complaint: GLF Time Seen by Provider: 11/27/23 19:30 Source: patient Mode of arrival: EMS History of Present Illness HPI Narrative: Patient is an 78-year-old female who is here for evaluation of injuries that she sustained when she was pulled over by her dog. She stated that she was out walking her dog. She had her hand through the loop of the leash. She stated that she went to go knock on the door of a house. This family had dogs in the house and her dog became spooked and pulled her over. Patient is unsure exactly what happened she does not remember hitting her head but does have an abrasion over her nose. She was also having right wrist pain. No other injuries from the event. No hip pain. No loss of consciousness. No chest pain, shortness of breath, abdominal pain or lower extremity injuries. Patient is not on anticoagulation. Related Data Home Medications Medication Instructions Recorded Confirmed amlodipine 5 mg tablet 5 mg PO QPM 01/16/19 11/14/23 ascorbic acid (vitamin C) 1,000 mg 1,000 mg PO DAILY 01/16/19 11/14/23 tablet (Vitamin C) cholecalciferol (vitamin D3) 10 10 mcg PO DAILY 01/16/19 11/14/23 mcg (400 unit) capsule (Vitamin D3) multivitamin 1 tab PO DAILY 01/16/19 11/14/23 albuterol sulfate 90 mcg/actuation 1 puff inhalation PRN PRN 04/15/19 11/14/23 aerosol inhaler Shortness Of Breath levothyroxine 137 mcg tablet 137 mcg PO DAILY 03/02/21 11/14/23 (Synthroid) DHEA, TEST, PROG .Route 07/06/23 11/14/23 Previous Rx's Medication Instructions Recorded fluocinonide 0.05 % topical cream 1 applic topical BID PRN rash #30 09/22/23 grams Allergies Allergy/AdvReac Type Severity Reaction Status Date / Time abaloparatide [From Tymlos] AdvReac Severe It made Verified 11/27/23 16:12 me feel really bad, aches, pains epinephrine [EPINEPHRINE] AdvReac Severe Flushed, Verified 11/27/23 16:12 SOB Imdwsbj-[id number]-IrC Reductase AdvReac Severe Heart Verified 11/27/23 16:12 Inhibitor attack [[id number] REDUCTASE symptoms INHIBITOR] tetracycline [TETRACYCLINE] AdvReac Severe Flushed, Verified 11/27/23 16:12 SOB ciprofloxacin [From CIPRO] AdvReac Intermediate Fushed, SOB Verified 11/27/23 16:12 VALERIAN ROOT AdvReac Unknown Pt does Uncoded 11/14/23 10:33 not recall reaction Review of Systems Review of Systems ROS Unobtainable: All systems reviewed & are unremarkable except as noted in HPI and below Patient History Medical History Environmental allergies Anxiety and depression Easy bruisability Skin cancer Arthritis Osteopenia Osteoarthritis Osteoporosis GERD (gastroesophageal reflux disease) HTN (hypertension) HLD (hyperlipidemia) Tinnitus Hypothyroid Surgical History Hx of vein stripping History of surgery H/O left wrist surgery (~2012) H/O right wrist surgery (~2009) History of right knee joint replacement History of left knee replacement History of surgery Hx of oophorectomy History of hysterectomy Hx of appendectomy History of tonsillectomy and adenoidectomy Hx of bilateral cataract extraction History of bilateral knee replacement Social History household members: spouse Smoking Status: Never smoker alcohol intake: current Smoking Status: Never smoker alcohol intake frequency: 0-2 drinks per day Substance Use Type: does not use Exam Initial Vital Signs Initial Vital Signs: Vital Signs Temperature 97.5 F L 11/27/23 16:12 Pulse Rate 87 11/27/23 16:12 Respiratory Rate 18 11/27/23 16:12 Blood Pressure 198/95 H 11/27/23 16:12 Pulse Oximetry 96 11/27/23 16:12 Oxygen Delivery Method Room Air 11/27/23 16:12 Const General: cooperative, comfortable and No ill appearing HENMT Nose: other (Abrasion over bridge of nose) Eyes General: Yes appearance normal, both eyes and all related structures Resp Effort & Inspection: normal respiratory effort Auscultation: clear to auscultation bilaterally Cardio Rate: regular rate Rhythm: regular rhythm GI Inspection: normal to inspection and non-distended Skin Other: Abrasion over bridge of nose Neuro General: patient alert, patient awake, patient oriented x3 and moves all extremities Extrem Other: Bruising to the radial aspect of the right forearm and right thumb. Procedures Orthopedic Splinting/Casting Injury #1: Side: right Upper Extremity Injury Location: wrist Upper Extremity Immobilizer: wrist splint Post splinting neuro exam: no change Post splinting vascular exam: no change Placed by: Nursing Scores [place] CT Head Rule Age <16 years old: No Patient on blood thinners: No Seizure after injury: No Exclusion: Patient NOT Excluded, Proceed to next steps GCS < 15 at 2 hr post trauma: No Suspected open or depressed skull fracture: No Any sign of basilar skull fracture (hemotympanum, raccoon eyes, Izaguirre's sign, CSF monique-/rhinorrhea): No Two or more episodes of vomiting: No Age greater or equal to 65 years: Yes Retrograde amnesia to the event greater or equal to 30 min: No Dangerous Mechanism (pedestrian vs. mv, occupant ejected from mv, fall from >3 ft or > 5 stairs): No Recommendation: Consider CT. The [place] Head CT Rule cannot rule out need for Imaging. Course Orders Ordered: Discontinued Medications Acetaminophen (Acetaminophen 325 Mg Tablet) 650 mg PO NOW ONE Stop: 11/27/23 20:10 Last Admin: 11/27/23 20:25 Dose: Not Given Documented By: MARE Hydrocodone Bitart/Acetaminophen (Hydrocodone/Acet 5/325 Tablet) 1 tab PO NOW ONE Stop: 11/27/23 20:22 Last Admin: 11/27/23 20:24 Dose: 1 tab Documented By: MARE Hydrocodone Bitart/Acetaminophen (Hydrocodone/Acet 5/325 Prepack) 1 bottle MISC DIRECTED ONE Stop: 11/27/23 20:22 Last Admin: 11/27/23 20:24 Dose: 1 bottle Documented By: MARE Vital Signs Vital signs: Vital Signs - 8 hr 11/27/23 16:12 Temperature 97.5 F L Pulse Rate 87 Respiratory Rate 18 Blood Pressure 198/95 H Pulse Oximetry 96 Oxygen Delivery Method Room Air MDM - Fall Imaging Data CT - cervical spine: Radiologist's Impression: PROCEDURE: CT CERVICAL SPINE WO CON INDICATIONS: fall, head and neck pain TECHNIQUE: Noncontrast 3 mm thick sections acquired from the skull base to the T4 level. Sagittal and coronal reformats were then constructed. For radiation dose reduction, the following was used: automated exposure control, adjustment of mA and/or kV according to patient size. COMPARISON: [facility], CT, CT CERVICAL SPINE WO CON, 09/06/2022, 14:33. FINDINGS: Image quality: Diagnostic. Bones: No fractures or dislocations. Visualized superior ribs are intact. Soft tissues: Prevertebral soft tissues are normal in thickness. No paravertebral hematomas. No apical pneumothoraces. IMPRESSION: No acute displaced fracture or traumatic subluxation. CT scan - head: Radiologist's Impression: PROCEDURE: CT HEAD/BRAIN WO CON INDICATIONS: fall, head and neck pain TECHNIQUE: Noncontrast 4.5 mm thick angled axial sections acquired from the foramen magnum to the vertex, with coronal and sagittal reformats. For radiation dose reduction, the following was used: automated exposure control, adjustment of mA and/or kV according to patient size. COMPARISON: [facility], CT, CT HEAD/BRAIN WO CON, 09/06/2022, 14:33. FINDINGS: Image quality: Diagnostic. CSF spaces: Basal cisterns are patent. No extra-axial fluid collections. The ventricles are symmetric in size and shape. Brain: No intracranial bleeds or masses. There is cerebral volume loss for age, with resultant ventricular and sulcal prominence. There are periventricular and deep white matter chronic small vessel ischemic changes. There is intracranial internal carotid artery atherosclerosis. Skull and face: Calvarium and visualized facial bones appear intact, without suspicious lesions. Sinuses: Visualized sinuses and mastoids are clear. IMPRESSION: No acute intracranial pathology. Extremity x-ray #1: Radiologist's Impression: PROCEDURE: XR WRIST RT MIN 3V INDICATIONS: fall, pain TECHNIQUE: 4 views of the wrist were acquired. COMPARISON: [facility], CR, XR WRIST RT MIN 3V, 09/08/2022, 12:40. FINDINGS: Bones: Status post distal radial and ulnar fixation using plate and screw construct. No evidence of hardware complication. Similar fracture deformities of the distal radius and ulnar. No acute fractures or dislocations. No suspicious bony lesions. Soft tissues: No suspicious soft tissue calcifications. IMPRESSION: No acute fracture. Stable postsurgical appearance of the distal radius and ulna. MDM Narrative Medical decision making narrative: This was a mechanical fall. Patient is alert and oriented x3. Imaging studies here in the emergency department showed no acute fractures or dislocations. Patient reports no other injuries from the event. We did discuss the potential expected course of the next couple days. She was placed in a removable splint for her right wrist for comfort. She was given care instructions and return precautions. She expressed understanding and agreement. Discharge Plan Departure Patient Disposition: Home Clinical Impression: Abrasion of nose, Right wrist sprain Instructions: How To Perform RICE (Rest, Ice, Compress, Elevate) Activity Restrictions/Additional Instructions: I would not be surprised if you are sore tomorrow. You can take Tylenol/ibuprofen for any discomfort. I also recommend that you use ice when your right wrist. The splint is for your comfort return to the emergency department for new or worsening symptoms Prescriptions: No Action DHEA, TEST, PROG .Route Rx Instructions: DHEA/testosterone/progesterone 50mg/5mg/25mg per gram of cream, apply 1 pump (0.5g) topically to rotating sites 5 out of 7 days per week. 45g total (90 days), 0.5g blue pump. fluocinonide 0.05 % cream 1 applic topical BID PRN (Reason: rash) Qty: 30 0RF levothyroxine [Synthroid] 137 mcg Tablet 137 mcg PO DAILY Patient Comments: Pt requires name brand synthyroid - will bring dos amlodipine 5 mg tablet 5 mg PO QPM multivitamin Tablet 1 tab PO DAILY ascorbic acid (vitamin C) [Vitamin C] 1,000 mg Tablet 1,000 mg PO DAILY cholecalciferol (vitamin D3) [Vitamin D3] 10 mcg (400 unit) Capsule 10 mcg PO DAILY albuterol sulfate 90 mcg/actuation HFA aerosol inhaler 1 puff INHALATION PRN PRN (Reason: Shortness Of Breath) Referrals: Biju Garcia MD [Primary Care Provider] - Stand Alone Forms: Patient Portal/API
[2023-11-27] MEDS: HYDROCODONE/ACET 5/325 PREPACK 1 BOTTLE MISC (20:24)
[2023-11-27] MEDS: HYDROCODONE/ACET 5/325 TABLET 1 TAB PO (20:24)
== END 2023-11-27 20:30 | disposition home or self-care (01) ==
PROVIDERS: Emergency Provider Emergency Medicine; PCP Family Medicine
DX: S63.501A Unspecified sprain of right wrist, initial encounter (principal); S00.31XA Abrasion of nose, initial encounter; X50.9XXA Other and unspecified overexertion or strenuous movements or postures, initial encounter; Y93.K1 Activity, walking an animal
CPT/HCPCS: 70450; 72125; 73110; 99283; 99284

== ENCOUNTER → 2024-03-06 09:53 | Outpatient (CLI) | payer MEDICARE, SELFPAY ==
[2022-07-11 12:01] VITALS: BMI 26.4
[2024-03-06 11:31] LABS: Alanine Aminotransferase 13 IU/L (<35); Albumin Globulin Ratio 1.4 (1.0-2.8); Alkaline Phosphatase 55 U/L (38-126); Aspartate Aminotransferase 21 IU/L (14-36); BUN Creatinine Ratio 16.9 (6-22); Bilirubin Total 0.5 mg/dL (0.2-1.3); Blood Urea Nitrogen 12 mg/dL (7-17); Calcium 9.7 mg/dL (8.4-10.2); Carbon Dioxide 28 mmol/L (22-32); Chloride 97 mmol/L (98-107); Cholesterol 301 mg/dL (140-199); Estimated Glomerular Filt Rate > 60 mL/min (>60); Globulin 2.9 g/dL (1.7-4.1); Glucose 96 mg/dL (80-110); HDL Cholesterol 104 mg/dL (40-60); HEMOLYSIS < 15 (0-50); LDL Cholesterol Calculated 168 mg/dL (<100); Potassium 4.6 mmol/L (3.4-5.1); Sodium 129 mmol/L (137-145); Total Protein 6.9 g/dL (6.3-8.2); Triglycerides 147 mg/dL (35-150)
== END ==
LOC: LAB 09:55
PROVIDERS: PCP Family Medicine; Referring Provider Internal Medicine Cardiovascular Disease; Visit Provider Internal Medicine Cardiovascular Disease
DX: E78.2 Mixed hyperlipidemia (principal)
CPT/HCPCS: 36415; 80053; 80061

== ENCOUNTER 2024-04-25 15:18 | Emergency (ER) | payer MEDICARE, SELFPAY ==
[2022-07-11 12:01] VITALS: BMI 26.4
[2024-04-25 15:33] VITALS: BP 152/71; PULSE 80; RESP 18; TEMP 36.8; O2SAT 97; BMI 26.5
--- NOTE | 2024-04-25 15:40 | DI.RAD.S_ITS ---
PROCEDURE: XR CHEST 1V INDICATIONS: chest pain TECHNIQUE: One view of the chest was acquired. COMPARISON: [facility], CR, XR CHEST 2V, 04/27/2021, 15:11. [facility], CR, XR CHEST 2V, 04/02/2019, 10:55. FINDINGS: Surgical changes and devices: Left shoulder arthroplasty. Lungs and pleura: Lungs are clear. No pleural effusions or pneumothorax. Mediastinum: Mediastinal contours appear normal. Heart size is normal. Bones and chest wall: No suspicious bony lesions. Overlying soft tissues appear unremarkable. IMPRESSION: No acute cardiopulmonary abnormality is seen. Dictated by: Neri Cerda M.D. on 04/25/2024 at 16:47 Approved by: Neri Cerda M.D. on 04/25/2024 at 16:47
--- NOTE | 2024-04-25 16:10 | EKG_ITS ---
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
[2024-04-25 16:11] LABS: Add Manual Diff / Slide Review NO; Basophils Absolute Auto 0 /uL (0-100); Basophils Percent Auto 0.6 % (0-2); Eosinophils Absolute Auto 0 /uL (0-450); Eosinophils Percent Auto 0.6 % (2-4); Hematocrit 42.1 % (36-46); Hemoglobin 14.4 g/dL (12.0-16.0); Lymphocytes Absolute Auto 2000 /uL (1100-4500); Lymphocytes Percent Auto 52.7 % (25-40); Mean Corpuscular HGB Conc 34.1 % (30-36); Mean Corpuscular Hemoglobin 31.5 PG (26-34); Mean Corpuscular Volume 92.2 fL (80-100); Monocytes Absolute Auto 500 /uL (0-900); Monocytes Percent Auto 12.8 % (3-14); Neutrophils Absolute Auto 1300 /uL (1500-7000); Neutrophils Percent Auto 33.3 % (50-75); Platelet Count 251 X10^3/uL (150-400); Red Blood Cell Count 4.56 X10^6/uL (4.0-5.2); Red Cell Distribution Width 12.5 % (11.6-14.8); White Blood Cell Count 3.8 X10^3/uL (4.5-11.0)
[2024-04-25 16:21] LABS: Alanine Aminotransferase 17 IU/L (<35); Albumin 4.6 g/dL (3.5-5.0); Albumin Globulin Ratio 1.4 (1.0-2.8); Alkaline Phosphatase 69 U/L (38-126); Aspartate Aminotransferase 29 IU/L (14-36); Bilirubin Total 0.4 mg/dL (0.2-1.3); Blood Urea Nitrogen 12 mg/dL (7-17); Calcium 9.4 mg/dL (8.4-10.2); Carbon Dioxide 29 mmol/L (22-32); Chloride 97 mmol/L (98-107); Creatine Kinase 40 U/L (30-135); Estimated Glomerular Filt Rate > 60 mL/min (>60); Globulin 3.2 g/dL (1.7-4.1); Glucose 100 mg/dL (80-110); HEMOLYSIS 23 (0-50); Lipase 133 U/L (23-300); PTT Partial Thromboplastin Tim 32 SECONDS (25.1-36.5); Potassium 3.8 mmol/L (3.4-5.1); Sodium 133 mmol/L (137-145); Total Protein 7.8 g/dL (6.3-8.2)
[2024-04-25 16:27] LABS: COVID-19 CEPHEID 4-PLEX PCR POSITIVE (Negative); Influenza A - CEPHEID Flu A NEGATIVE (NEGATIVE); Influenza B - CEPHEID Flu B NEGATIVE (NEGATIVE); Respiratory Syncytial Virus Negative (Negative)
[2024-04-25 16:32] LABS: NT-proBNP (BNP-Adult 18+) 269 pg/mL (<450); Troponin I < 0.012 ng/mL (0.01-0.034)
[2024-04-25 18:52] VITALS: BP 158/70; PULSE 80; RESP 18; TEMP 36.3; O2SAT 100
[2024-04-25 19:27] VITALS: PULSE 80
[2024-04-25 19:28] VITALS: BP 142/67; PULSE 79; O2SAT 96
[2024-04-25 19:30] VITALS: PULSE 77; O2SAT 97
--- NOTE | 2024-04-25 20:00 | ED_ITS ---
HPI - Chest Pain General Chief Complaint: Chest Pain Stated Complaint: dizziness, fever sent by [facility] Time Seen by Provider: 04/25/24 19:58 Source: patient Mode of arrival: Wheelchair Limitations: no limitations Related Data Home Medications Medication Instructions Recorded Confirmed amlodipine 5 mg tablet 5 mg PO QPM 01/16/19 03/15/24 ascorbic acid (vitamin C) 1,000 mg 1,000 mg PO DAILY 01/16/19 03/15/24 tablet (Vitamin C) cholecalciferol (vitamin D3) 10 10 mcg PO DAILY 01/16/19 03/15/24 mcg (400 unit) capsule (Vitamin D3) multivitamin 1 tab PO DAILY 01/16/19 03/15/24 albuterol sulfate 90 mcg/actuation 1 puff inhalation PRN PRN 04/15/19 03/15/24 aerosol inhaler Shortness Of Breath DHEA, TEST, PROG .Route 07/06/23 03/15/24 Previous Rx's Medication Instructions Recorded fluocinonide 0.05 % topical cream 1 applic topical BID PRN rash #30 09/22/23 grams Synthroid 137 mcg tablet 137 mcg PO DAILY #90 tabs 01/29/24 (levothyroxine) Allergies Allergy/AdvReac Type Severity Reaction Status Date / Time abaloparatide [From Tymlos] AdvReac Severe It made Verified 03/15/24 11:08 me feel really bad, aches, pains epinephrine [EPINEPHRINE] AdvReac Severe Flushed, Verified 03/15/24 11:08 SOB Rklzpbo-CLW-RlP Reductase AdvReac Severe Heart Verified 03/15/24 11:08 Inhibitor attack [[id number] REDUCTASE symptoms INHIBITOR] tetracycline [TETRACYCLINE] AdvReac Severe Flushed, Verified 03/15/24 11:08 SOB ciprofloxacin [From CIPRO] AdvReac Intermediate Fushed, SOB Verified 03/15/24 11:08 VALER[place] [address]OT AdvReac Unknown Pt does Uncoded 03/15/24 11:08 not recall reaction Patient History Medical History Environmental allergies Anxiety and depression Easy bruisability Skin cancer Arthritis Osteopenia Osteoarthritis Osteoporosis GERD (gastroesophageal reflux disease) HTN (hypertension) HLD (hyperlipidemia) Tinnitus Hypothyroid Surgical History Hx of vein stripping History of surgery H/O left wrist surgery (~2012) H/O right wrist surgery (~2009) History of right knee joint replacement History of left knee replacement History of surgery Hx of oophorectomy History of hysterectomy Hx of appendectomy History of tonsillectomy and adenoidectomy Hx of bilateral cataract extraction History of bilateral knee replacement Social History household members: spouse Smoking Status: Never smoker alcohol intake: current Smoking Status: Never smoker alcohol intake frequency: 0-2 drinks per day Substance Use Type: does not use Exam Initial Vital Signs Initial Vital Signs: Vital Signs Temperature 98.2 F 04/25/24 15:33 Pulse Rate 80 04/25/24 15:33 Respiratory Rate 18 04/25/24 15:33 Blood Pressure 152/71 H 04/25/24 15:33 Pulse Oximetry 97 04/25/24 15:33 Oxygen Delivery Method Room Air 04/25/24 15:33 Course Orders Ordered: ED Orders 04/25/24 15:40 XR chest 1V Stat Covid-19 + FLU A/B + RSV - PCR Stat EKG-12 Lead Stat 04/25/24 16:00 Complete Blood Count AUTO DIFF Stat Comprehensive Metabolic Panel Stat Lipase Stat Magnesium Stat NT-proBNP (BNP-Adult 18+) Stat PTT Partial Thromboplastin Jagdish Stat Prothrombin Time INR Stat Troponin & CK Cardiac Panel Stat 04/25/24 19:58 Blood Culture Stat Lactate (Lactic Acid) Stat 04/25/24 19:59 Procalcitonin Stat Discontinued Medications Aspirin (Aspirin 81 Mg Chew Tab) 324 mg PO NOW ONE Stop: 04/25/24 15:41 Last Admin: 04/25/24 18:53 Dose: Not Given Documented By: RB Vital Signs Vital signs: Vital Signs - 8 hr 04/25/24 15:33 04/25/24 18:52 Temperature 98.2 F 97.3 F L Pulse Rate 80 80 Respiratory Rate 18 18 Blood Pressure 152/71 H 158/70 H Pulse Oximetry 97 100 Oxygen Delivery Method Room Air Room Air MDM - Chest Pain Lab Data 04/25/24 16:00 04/25/24 16:00 Labs: Lab Results 04/25/24 04/25/24 Range/Units 15:40 16:00 WBC 3.8 L (4.5-11.0) X10^3/uL RBC 4.56 (4.0-5.2) X10^6/uL Hgb 14.4 (12.0-16.0) g/dL Hct 42.1 (36-46) % MCV 92.2 (80-100) fL MCH 31.5 (26-34) PG MCHC 34.1 (30-36) % RDW 12.5 (11.6-14.8) % Plt Count 251 (150-400) X10^3/uL Neut % (Auto) 33.3 L (50-75) % Lymph % (Auto) 52.7 H (25-40) % [place] % (Auto) 12.8 (3-14) % Eos % (Auto) 0.6 L (2-4) % Baso % (Auto) 0.6 (0-2) % Neut # (Auto) 1300 L (0005-8204) /uL Lymph # (Auto) 2000 (6000-6033) /uL [place] # (Auto) 500 (0-900) /uL Eos # (Auto) 0 (0-450) /uL Baso # (Auto) 0 (0-100) /uL PT 11.0 (9.4-12.5) SECONDS INR 1.0 (0.9-1.3) APTT 32 (25.1-36.5) SECONDS Sodium 133 L (137-145) mmol/L Potassium 3.8 (3.4-5.1) mmol/L Chloride 97 L (98-107) mmol/L Carbon Dioxide 29 (22-32) mmol/L BUN 12 (7-17) mg/dL Creatinine 0.60 (0.52-1.04) mg/dL Estimated GFR > 60 (>60) mL/min BUN/Creatinine Ratio 20.0 (6-22) Glucose 100 (80-110) mg/dL Calcium 9.4 (8.4-10.2) mg/dL Magnesium 2.0 (1.6-2.3) mg/dL Total Bilirubin 0.4 (0.2-1.3) mg/dL AST 29 (14-36) IU/L ALT 17 (<35) IU/L Alkaline Phosphatase 69 (38-126) U/L Total Creatine Kinase 40 (30-135) U/L Troponin I < 0.012 (0.01-0.034) ng/mL NT-Pro-B Natriuret Pep 269 (<450) pg/mL Total Protein 7.8 (6.3-8.2) g/dL Albumin 4.6 (3.5-5.0) g/dL Globulin 3.2 (1.7-4.1) g/dL Albumin/Globulin Ratio 1.4 (1.0-2.8) Lipase 133 (23-300) U/L SARS-CoV-2 (PCR) Positive H (Negative) Influenza A (RT-PCR) Flu a negative (NEGATIVE) Influenza B (RT-PCR) Flu b negative (NEGATIVE) RSV (PCR) Negative (Negative) Discharge Plan Departure Prescriptions: No Action DHEA, TEST, PROG .Route Rx Instructions: DHEA/testosterone/progesterone 50mg/5mg/25mg per gram of cream, apply 1 pump (0.5g) topically to rotating sites 5 out of 7 days per week. 45g total (90 days), 0.5g blue pump. fluocinonide 0.05 % cream 1 applic topical BID PRN (Reason: rash) Qty: 30 0RF levothyroxine [Synthroid] 137 mcg tablet 137 mcg PO DAILY Qty: 90 1RF amlodipine 5 mg tablet 5 mg PO QPM multivitamin Tablet 1 tab PO DAILY ascorbic acid (vitamin C) [Vitamin C] 1,000 mg Tablet 1,000 mg PO DAILY cholecalciferol (vitamin D3) [Vitamin D3] 10 mcg (400 unit) Capsule 10 mcg PO DAILY albuterol sulfate 90 mcg/actuation HFA aerosol inhaler 1 puff INHALATION PRN PRN (Reason: Shortness Of Breath) Referrals: Biju Garcia MD [Primary Care Provider] -
--- NOTE | 2024-04-25 20:12 | ED.CHESTPAIN ---
HPI - Chest Pain General Chief Complaint: Chest Pain Stated Complaint: dizziness, fever sent by [facility] Time Seen by Provider: 04/25/24 19:58 Source: patient Mode of arrival: Wheelchair Limitations: no limitations History of Present Illness HPI narrative: 78-year-old female complains of 3 days duration fatigue, saw her primary care doctor today, who was concerned about COVID, referred for further evaluation COVID testing and other lab testing. Patient is not having any actual cough, no fevers, no muscle aches. No lower extremity edema. No painful urination. No nausea or vomiting or diarrhea. Related Data Home Medications Medication Instructions Recorded Confirmed amlodipine 5 mg tablet 5 mg PO QPM 01/16/19 03/15/24 ascorbic acid (vitamin C) 1,000 mg 1,000 mg PO DAILY 01/16/19 03/15/24 tablet (Vitamin C) cholecalciferol (vitamin D3) 10 10 mcg PO DAILY 01/16/19 03/15/24 mcg (400 unit) capsule (Vitamin D3) multivitamin 1 tab PO DAILY 01/16/19 03/15/24 albuterol sulfate 90 mcg/actuation 1 puff inhalation PRN PRN 04/15/19 03/15/24 aerosol inhaler Shortness Of Breath DHEA, TEST, PROG .Route 07/06/23 03/15/24 Previous Rx's Medication Instructions Recorded fluocinonide 0.05 % topical cream 1 applic topical BID PRN rash #30 09/22/23 grams Synthroid 137 mcg tablet 137 mcg PO DAILY #90 tabs 01/29/24 (levothyroxine) nirmatrelvir 300 mg (150 mg See Rx Instructions PO .COMPLEX 04/25/24 x2)-ritonavir 100 mg tablet,dose #30 ea pack (Paxlovid) Allergies Allergy/AdvReac Type Severity Reaction Status Date / Time abaloparatide [From Tymlos] AdvReac Severe It made Verified 03/15/24 11:08 me feel really bad, aches, pains epinephrine [EPINEPHRINE] AdvReac Severe Flushed, Verified 03/15/24 11:08 SOB [id number]-[id number]-RhM Reductase AdvReac Severe Heart Verified 03/15/24 11:08 Inhibitor attack [[id number] REDUCTASE symptoms INHIBITOR] tetracycline [TETRACYCLINE] AdvReac Severe Flushed, Verified 03/15/24 11:08 SOB ciprofloxacin [From CIPRO] AdvReac Intermediate Fushed, SOB Verified 03/15/24 11:08 [place] AdvReac Unknown Pt does Uncoded 03/15/24 11:08 not recall reaction Review of Systems Review of Systems Narrative: see HPI Patient History Medical History Environmental allergies Anxiety and depression Easy bruisability Skin cancer Arthritis Osteopenia Osteoarthritis Osteoporosis GERD (gastroesophageal reflux disease) HTN (hypertension) HLD (hyperlipidemia) Tinnitus Hypothyroid Surgical History Hx of vein stripping History of surgery H/O left wrist surgery (~2012) H/O right wrist surgery (~2009) History of right knee joint replacement History of left knee replacement History of surgery Hx of oophorectomy History of hysterectomy Hx of appendectomy History of tonsillectomy and adenoidectomy Hx of bilateral cataract extraction History of bilateral knee replacement Social History household members: spouse Smoking Status: Never smoker alcohol intake: current Smoking Status: Never smoker alcohol intake frequency: 0-2 drinks per day Substance Use Type: does not use Exam Narrative Exam Narrative: GENERAL: Well-developed patient, in mild distress. HEAD: Atraumatic. Normocephalic. EYES: Pupils equal round and reactive. Extraocular motions intact. No scleral icterus. No injection or drainage. ENT: Nose without bleeding, purulent drainage. Throat without erythema, tonsillar hypertrophy or exudate. Airway patent. NECK: Trachea midline. Non tender CARDIOVASCULAR: Regular rate and rhythm without murmurs, gallops, or rubs. RESPIRATORY: Clear to auscultation. Breath sounds equal bilaterally. No wheezes, rales, or rhonchi. GASTROINTESTINAL: Abdomen soft, non-tender, nondistended. EXTREMITIES: No edema or joint tenderness. BACK: Nontender without deformity or crepitance. No flank tenderness. NEURO: AOx3. Motor functions grossly nonfocal SKIN: No rash or erythema of visible areas Initial Vital Signs Initial Vital Signs: Vital Signs Temperature 98.2 F 04/25/24 15:33 Pulse Rate 80 04/25/24 15:33 Respiratory Rate 18 04/25/24 15:33 Blood Pressure 152/71 H 04/25/24 15:33 Pulse Oximetry 97 04/25/24 15:33 Oxygen Delivery Method Room Air 04/25/24 15:33 Course Orders Ordered: Discontinued Medications Aspirin (Aspirin 81 Mg Chew Tab) 324 mg PO NOW ONE Stop: 04/25/24 15:41 Last Admin: 04/25/24 18:53 Dose: Not Given Documented By: RB Vital Signs Vital signs: Vital Signs - 8 hr 04/25/24 15:33 04/25/24 18:52 Temperature 98.2 F 97.3 F L Pulse Rate 80 80 Respiratory Rate 18 18 Blood Pressure 152/71 H 158/70 H Pulse Oximetry 97 100 Oxygen Delivery Method Room Air Room Air MDM - Chest Pain Lab Data Attestation: I reviewed the patient's lab results. Lab results narrative: White blood cell count 3800, hemoglobin 14.4, platelets [id number] adequate. Sodium 133 slightly low, remainder of basic metabolic panel unremarkable, glucose 100. Renal function normal. Liver functions normal. COVID positive, influenza and RSV swabs negative. 04/25/24 16:00 04/25/24 16:00 Labs: Lab Results 04/25/24 04/25/24 Range/Units 15:40 16:00 WBC 3.8 L (4.5-11.0) X10^3/uL RBC 4.56 (4.0-5.2) X10^6/uL Hgb 14.4 (12.0-16.0) g/dL Hct 42.1 (36-46) % MCV 92.2 (80-100) fL MCH 31.5 (26-34) PG MCHC 34.1 (30-36) % RDW 12.5 (11.6-14.8) % Plt Count 251 (150-400) X10^3/uL Neut % (Auto) 33.3 L (50-75) % Lymph % (Auto) 52.7 H (25-40) % [place] % (Auto) 12.8 (3-14) % Eos % (Auto) 0.6 L (2-4) % Baso % (Auto) 0.6 (0-2) % Neut # (Auto) 1300 L (6632-9018) /uL Lymph # (Auto) 2000 (9671-0889) /uL [place] # (Auto) 500 (0-900) /uL Eos # (Auto) 0 (0-450) /uL Baso # (Auto) 0 (0-100) /uL PT 11.0 (9.4-12.5) SECONDS INR 1.0 (0.9-1.3) APTT 32 (25.1-36.5) SECONDS Sodium 133 L (137-145) mmol/L Potassium 3.8 (3.4-5.1) mmol/L Chloride 97 L (98-107) mmol/L Carbon Dioxide 29 (22-32) mmol/L BUN 12 (7-17) mg/dL Creatinine 0.60 (0.52-1.04) mg/dL Estimated GFR > 60 (>60) mL/min BUN/Creatinine Ratio 20.0 (6-22) Glucose 100 (80-110) mg/dL Calcium 9.4 (8.4-10.2) mg/dL Magnesium 2.0 (1.6-2.3) mg/dL Total Bilirubin 0.4 (0.2-1.3) mg/dL AST 29 (14-36) IU/L ALT 17 (<35) IU/L Alkaline Phosphatase 69 (38-126) U/L Total Creatine Kinase 40 (30-135) U/L Troponin I < 0.012 (0.01-0.034) ng/mL NT-Pro-B Natriuret Pep 269 (<450) pg/mL Total Protein 7.8 (6.3-8.2) g/dL Albumin 4.6 (3.5-5.0) g/dL Globulin 3.2 (1.7-4.1) g/dL Albumin/Globulin Ratio 1.4 (1.0-2.8) Lipase 133 (23-300) U/L SARS-CoV-2 (PCR) Positive H (Negative) Influenza A (RT-PCR) Flu a negative (NEGATIVE) Influenza B (RT-PCR) Flu b negative (NEGATIVE) RSV (PCR) Negative (Negative) ECG Data Attestation: I personally reviewed and interpreted this ECG as follows: Interpretation: Normal sinus rhythm with rate 79, no obvious ST segment elevation or depression changes. IN 174, QRS 78, QTC 426. MDM Narrative Medical decision making narrative: 78-year-old female with generalized malaise for 3 days, referred for COVID and other testing, screening EKG and serum studies unremarkable. Swab positive for COVID, negative for flu/RSV. She would like Paxlovid antiviral therapy, prescription sent to her pharmacy. Advised to take antivirals as directed. Return precautions discussed. Discharge Plan Departure Patient Disposition: Home Clinical Impression: COVID-19, Fatigue, Generalized weakness Activity Restrictions/Additional Instructions: Generalized weakness and fatigue symptoms without cough or chest pain or shortness of breath for the last 3 days since around visitors. Referred from clinic for further evaluation. EKG without obvious concerns cardiac, blood testing not suggestive of heart attack at this time, other blood tests unremarkable, normal renal function, normal liver function, glucose and electrolytes unremarkable. Slight low hypo natremia low sodium level noted, can be further followed as outpatient. COVID swab was positive, likely cause of your recent fatigue and weakness symptoms. Influenza and RSV swab tests were negative. We discussed antiviral therapy with Michelle, he would like to start this treatment. Prescription sent to your pharmacy, instructed to take/start medication doses twice daily as soon as possible, for full 5 day course. Recheck with your regular doctor if you have trouble breathing, chest discomfort, progression of weakness, or any concerns prior. Return earlier to this/nearest emergency department for any change worsening symptoms or any concerns prior Prescriptions: New Paxlovid 300 mg (150 mg x 2)-100 mg tablets,dose pack See Rx Instructions .ROUTE .COMPLEX Qty: 30 0RF Rx Instructions: take TWO 150 mg tablets of nirmatrelvir with ONE 100 mg tablet of ritonavir twice daily for 5 days No Action DHEA, TEST, PROG .Route Rx Instructions: DHEA/testosterone/progesterone 50mg/5mg/25mg per gram of cream, apply 1 pump (0.5g) topically to rotating sites 5 out of 7 days per week. 45g total (90 days), 0.5g blue pump. fluocinonide 0.05 % cream 1 applic topical BID PRN (Reason: rash) Qty: 30 0RF levothyroxine [Synthroid] 137 mcg tablet 137 mcg PO DAILY Qty: 90 1RF amlodipine 5 mg tablet 5 mg PO QPM multivitamin Tablet 1 tab PO DAILY ascorbic acid (vitamin C) [Vitamin C] 1,000 mg Tablet 1,000 mg PO DAILY cholecalciferol (vitamin D3) [Vitamin D3] 10 mcg (400 unit) Capsule 10 mcg PO DAILY albuterol sulfate 90 mcg/actuation HFA aerosol inhaler 1 puff INHALATION PRN PRN (Reason: Shortness Of Breath) Referrals: Biju Garcia MD [Primary Care Provider] - Stand Alone Forms: Patient Portal/API/Survey
[2024-04-25 20:51] VITALS: PULSE 70; O2SAT 96
== END 2024-04-25 21:00 | disposition home or self-care (01) ==
PROVIDERS: Emergency Medicine; Emergency Provider Emergency Medicine; PCP Family Medicine
DX: U07.1 COVID-19 (principal); R53.83 Other fatigue; R53.1 Weakness; R07.9 Chest pain, unspecified
CPT/HCPCS: 0241U; 36415; 71045; 80053; 82550; 83690; 83735; 83880; 84484; 85025; 85610; 85730; 93005; 99283; 99284

== ENCOUNTER 2024-07-09 10:45 | Outpatient (RCR) | payer MEDICARE, SELFPAY ==
[2022-07-11 12:01] VITALS: BMI 26.4
--- NOTE | 2024-07-09 11:30 | PT.OIE ---
Current Diagnoses Unspecified osteoarthritis, unspecified site (07/09/24) Pain in right shoulder (07/09/24) Pain in left shoulder (07/09/24) Pain in right knee (07/09/24) Pain in left knee (07/09/24) Cervicalgia (07/09/24) Past Medical History (Last Reviewed 11/28/23 @ 02:58 by Jesse Goldberg DO) Anxiety and depression Arthritis Easy bruisability Environmental allergies GERD (gastroesophageal reflux disease) HLD (hyperlipidemia) HTN (hypertension) Hypothyroid Osteoarthritis Osteopenia Osteoporosis Skin cancer Tinnitus Past Surgical History (Last Reviewed 09/06/22 @ 20:39 by Juanis Curtis PA-C) H/O left wrist surgery (~2012) H/O right wrist surgery (~2009) History of bilateral knee replacement History of hysterectomy History of left knee replacement History of right knee joint replacement History of surgery History of surgery History of tonsillectomy and adenoidectomy Hx of appendectomy Hx of bilateral cataract extraction Hx of oophorectomy Hx of vein stripping Visit Care Team Role Provider Type Biju Garcia MD Attending Provider Physician Family Provider Primary Care Provider Referring Provider Specialty: Family Practice Obstetrics Address: [address] [place] [address] Email: [email or web address] Physical Therapy Initial Evaluation PT-OP-A Visit Information Start: 07/09/24 13:39 Freq: Status: Active Protocol: Document 07/09/24 10:50 DCW (Rec: 07/09/24 13:42 DCW [id number]) Out-Patient Physical Therapy Visit Information Visit Information Visit Type Initial Evaluation Visit Start Time 10:50 Visit Stop Time 11:30 Visit Number 1 Number of DAIRY CLERK Visits 0 Evaluation Information Evaluation Date 07/09/24 PT-OP-B Current Condition Start: 07/09/24 13:39 Freq: Status: Active Protocol: Document 07/09/24 10:50 DCW (Rec: 07/09/24 16:15 DCW [id number]) Current Condition History of Current Condition Onset Date Long-standing history Current Complaints B shoulder pain, B knee pain, neck pain History of Current Condition Pt is an 78 year old female presenting with multiple complaints, including bilateral knee, bilateral shoulder, and neck pain. Pt admits that the neck bothers her the most currently. 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 Pain in neck was significantly worsened 5-6 months ago following a fall. Pt reports her dog pulled on it's leash straight back, resulting in pt falling backward and hitting the ground. Pain has largely been present in her neck and shoulders since that time. Pt [place], so she has always just pushed through pain. Does note neck pain impacts her turning her head while driving, the neck feels like it crinkles. Does admit that left shoulder ROM has never quite recovered since TSA, is still fairly limited trying to get left arm overhead. PT-OP-C Subjective Start: 07/09/24 13:39 Freq: Status: Active Protocol: Document 07/09/24 10:50 DCW (Rec: 07/09/24 16:15 DCW [id number]) OP-PT Subjective Patient Comments Patient Comments It's been going on for a while. Patient Reported Progress Same Patient Questionnaires Neck Disability Index NDI Score 11/50 = 22% Neck Disability Index Impairment 20 to 39% Impaired (Score 10- 19) Quick Dash- Upper Extremity Quick Dash UE Score 34.09% OP-PT Pain Assessment Pain Assessment Grid Paper Pain Assessment Grid Completed Yes: See scan in chart PT-OP-F Manual Assessment Start: 07/09/24 13:39 Freq: Status: Active Protocol: Document 07/09/24 10:50 DCW (Rec: 07/09/24 17:55 DCW [id number]) Manual Assessments Soft Tissue Assessment Soft Tissue Mobility Assessment Moderate tone with tenderness to palpation 3/4: wincing and withdraw R>L suboccipitals, Upper Trap, Scalenes, SCM PT-OP-K Range of Motion Start: 07/09/24 13:39 Freq: Status: Active Protocol: Document 07/09/24 10:50 DCW (Rec: 07/09/24 17:55 DCW [id number]) Cervical Spine Range of Motion Cervical Spine Active Degrees Testing Position Sitting Flexion 55 Extension 30 Rotation Left 52 Rotation Right 63 Lateral Flexion Left 25 Lateral Flexion Right 20 ROM Limitations Soft Tissue Tightness,Muscle Weakness,Muscle Tone,Pain Shoulder Goniometric Range of Motion Shoulder Right Active Testing Position Sitting Flexion 150 Abduction 150 External Rotation at 0 degrees Abduction 26 Internal Rotation Behind Back (text) T7 Left Active Shoulder ROM WFL No Testing Position Sitting Flexion 101 Abduction 106 External Rotation at 0 degrees Abduction 14 Internal Rotation Behind Back (text) T10 PT-OP-L Special Tests Start: 07/09/24 13:39 Freq: Status: Active Protocol: Document 07/09/24 10:50 DCW (Rec: 07/09/24 17:55 DCW [id number]) Special Tests Cervical Spine Special Tests Spurling's Test Test Results Negative Slump Test Results Posterior neck discomfort Passive Neck Flexion Test Results Posterior neck discomfort Foraminal Compression Test Results Negative PT-OP-Q Treatments Start: 07/09/24 13:39 Freq: Status: Active Protocol: Document 07/09/24 10:50 DCW (Rec: 07/10/24 09:44 DCW [id number]) Therapeutic Exercises Supine Exercises Chin tuck Supine Exercise Name Chin Tuck Sitting Exercises Scalene Sitting Exercise Name Posterior Scalene stretch Comments Lateral flexion with rotation (to face down) Upper Trap Sitting Exercise Name Upper Trap stretch Comments Lateral flexion PT-OP-T Assessment and Plan Start: 07/09/24 13:39 Freq: Status: Active Protocol: Document 07/09/24 10:50 DCW (Rec: 07/10/24 09:44 DCW [id number]) Physical Therapy Assessment Rehab Potential Rehabilitation Potential Good Evaluation Complexity Number of Personal Factors/Comorbidities 3 or More Number of Body Systems Impaired 4 or More Clinical Presentation at Evaluation Unstable Impairments Impairments Functional Activities, Functional Mobility,Pain, Posture,ROM,Soft Tissue Mobility,Tone Other Impairments Occasional dizziness, history of falls, [place], bilateral TKA, left TSA Goals Three Impairment Shoulder limitations make it difficult to put things away overhead Longterm Goal (LTG) Pt to improve shoulder stability in order to increase left shoulder flexion and abduction to >130? in order to improve ability to put dishes away in overhead cabinets. LTG Duration 09/07/24 Two Impairment Limited cervical rotation decreases ability to look for traffic Risk Assessment Analyst Goal (LTG) Pt to demonstrate improved cervical rotation to >70? bilaterally in order to decrease difficulty looking for oncoming traffic while driving LTG Duration 09/07/24 One Impairment Pt does not have an appropriate home exercise program Short Term Goal (STG) Pt to be independent and compliant with an appropriate HEP STG Duration 08/10/24 Assessment Summary Assessment Pt presents with signs and symptoms consistent with referring diagnosis. Pt cervical and shoulder pain largely caused by backward fall 5-6 months ago, pt exhibiting continued tenderness and spasming throughout cervical paraspinals, upper trap, scalenes, SCM, and suboccipitals. Additional presents with limitations in shoulder mobility. Will likely benefit from skilled therapy focusing on STM, cervical mobility, shoulder strengthening, flexibility, and increased activity tolerance. Physical Therapy Plan Frequency and Duration Frequency of Treatment 2x/Week Plan of Care Start Date 07/09/24 Plan of Care End Date 09/06/24 Therapeutic Interventions Therapeutic Interventions Home Exercise Program,Joint Mobilizations,Manual Therapy, Neuromuscular Re-education, Patient/Caregiver Education, Self-Care/Home Management,Soft Tissue Mobilization, Therapeutic Activities, Therapeutic Exercises Modalities Cold Pack/Ice Massage,Hot Packs Next Visit Focus/Plan Next Note Type Treatment Note Next Visit Plan STM, flexibility/stretching, shoulder strengthening
--- NOTE | 2024-07-09 11:31 | PT.OPPOC ---
Physical, Occupational & Speech Therapy At [facility] Current Diagnoses Unspecified osteoarthritis, unspecified site (07/09/24) Pain in right shoulder (07/09/24) Pain in left shoulder (07/09/24) Pain in right knee (07/09/24) Pain in left knee (07/09/24) Cervicalgia (07/09/24) Visit Care Team Role Provider Type Biju Garcia MD Attending Provider Physician Family Provider Primary Care Provider Referring Provider Specialty: Family Practice Obstetrics Address: [address] [place], [place] [address], [address] Email: [email or web address] Plan Of Care PT-OP-B Current Condition Start: 07/09/24 13:39 Freq: Status: Active Protocol: Document 07/09/24 10:50 DCW (Rec: 07/09/24 16:15 DCW [id number]) Current Condition History of Current Condition Onset Date Long-standing history Current Complaints B shoulder pain, B knee pain, neck pain History of Current Condition Pt is an 78 year old female presenting with multiple complaints, including bilateral knee, bilateral shoulder, and neck pain. Pt admits that the neck bothers her the most currently. 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 Pain in neck was significantly worsened 5-6 months ago following a fall. Pt reports her dog pulled on it's leash straight back, resulting in pt falling backward and hitting the ground. Pain has largely been present in her neck and shoulders since that time. Pt admits she [place], so she has always just pushed through pain. Does note neck pain impacts her turning her head while driving, the neck feels like it crinkles. Does admit that left shoulder ROM has never quite recovered since TSA, is still fairly limited trying to get left arm overhead. PT-OP-T Assessment and Plan Start: 07/09/24 13:39 Freq: Status: Active Protocol: Document 07/09/24 10:50 DCW (Rec: 07/10/24 09:44 DCW [id number]) Physical Therapy Assessment Rehab Potential Rehabilitation Potential Good Evaluation Complexity Number of Personal Factors/Comorbidities 3 or More Number of Body Systems Impaired 4 or More Clinical Presentation at Evaluation Unstable Impairments Impairments Functional Activities, Functional Mobility,Pain, Posture,ROM,Soft Tissue Mobility,Tone Other Impairments Occasional dizziness, history of falls, [place], bilateral TKA, left TSA Goals Three Impairment Shoulder limitations make it difficult to put things away overhead Long-Term Goal (LTG) Pt to improve shoulder stability in order to increase left shoulder flexion and abduction to >130? in order to improve ability to put dishes away in overhead cabinets. LTG Duration 09/07/24 Two Impairment Limited cervical rotation decreases ability to look for traffic Long-Term Goal (LTG) Pt to demonstrate improved cervical rotation to >70? bilaterally in order to decrease difficulty looking for oncoming traffic while driving LTG Duration 09/07/24 One Impairment Pt does not have an appropriate home exercise program Short Term Goal (STG) Pt to be independent and compliant with an appropriate HEP STG Duration 08/10/24 Assessment Summary Assessment Pt presents with signs and symptoms consistent with referring diagnosis. Pt cervical and shoulder pain largely caused by backward fall 5-6 months ago, pt exhibiting continued tenderness and spasming throughout cervical paraspinals, upper trap, scalenes, SCM, and suboccipitals. Additional presents with limitations in shoulder mobility. Will likely benefit from skilled therapy focusing on STM, cervical mobility, shoulder strengthening, flexibility, and increased activity tolerance. Physical Therapy Plan Frequency and Duration Frequency of Treatment 2x/Week Plan of Care Start Date 07/09/24 Plan of Care End Date 09/06/24 Therapeutic Interventions Therapeutic Interventions Home Exercise Program,Joint Mobilizations,Manual Therapy, Neuromuscular Re-education, Patient/Caregiver Education, Self-Care/Home Management,Soft Tissue Mobilization, Therapeutic Activities, Therapeutic Exercises Modalities Cold Pack/Ice Massage,Hot Packs Next Visit Focus/Plan Next Note Type Treatment Note Next Visit Plan STM, flexibility/stretching, shoulder strengthening Plan of Care Dates Plan of Care Start Date 07/09/24 Plan of Care End Date 09/06/24 Electronically Signed by: Joe Martinez, PT 07/10/24 [id number] If you are in agreement with this Plan of Care, please return a signed and dated copy. I have reviewed this Plan of Care and certify that the skilled therapy services above are required to meet the patient?s needs. Physician Signature Date Printed Name and Credentials Clinical Instructor Signature Printed Name and Credentials
--- NOTE | 2025-03-31 10:20 | PT.OPDS ---
Current Diagnoses Unspecified osteoarthritis, unspecified site (07/09/24) Pain in right shoulder (07/09/24) Pain in left shoulder (07/09/24) Pain in right knee (07/09/24) Pain in left knee (07/09/24) Cervicalgia (07/09/24) Visit Care Team Role Provider Type Biju Garcia MD Attending Provider Physician Family Provider Primary Care Provider Referring Provider Specialty: [facility] Address: [address] [place] [address], [id number] Email: [email or web address] Visit Number Visit Number 1 Discharge Summary PT-OP-A Visit Information Start: 07/09/24 13:39 Freq: Status: Active Protocol: Document 07/09/24 10:50 DCW (Rec: 07/09/24 13:42 DCW [id number]) Out-Patient Physical Therapy Visit Information Visit Information Visit Type Initial Evaluation Visit Start Time 10:50 Visit Stop Time 11:30 Visit Number 1 Number of POLICY 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 Pt admits that the neck bothers her the most currently. 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 Pain in neck was significantly worsened 5-6 months ago following a fall. Pt reports her dog pulled on it's leash straight back, resulting in pt falling backward and hitting the ground. Pain has largely been present in her neck and shoulders since that time. Pt admits [place], so she has always just pushed through pain. Does note neck pain impacts her turning her head while driving, the neck feels like it crinkles. Does admit that left shoulder ROM has never quite recovered since TSA, is still fairly limited trying to get left arm overhead. PT-OP-C Subjective Start: 07/09/24 13:39 Freq: Status: Active Protocol: Document 07/09/24 10:50 DCW (Rec: 07/09/24 16:15 DCW [id number]) OP-PT Subjective Patient Comments Patient Comments It's been going on for a while. Patient Reported Same Progress Patient Questionnaires Neck Disability Index NDI Score 11/50 = 22% Neck Disability 20 to 39% Impaired (Score 10-19) Index Impairment Quick Dash- Upper Extremity Quick Dash UE Score 34.09% OP-PT Pain Assessment Pain Assessment Grid Paper Pain Yes: See scan in chart Assessment Grid Completed PT-OP-F Manual Assessment Start: 07/09/24 13:39 Freq: Status: Active Protocol: Document 07/09/24 10:50 DCW (Rec: 07/09/24 17:55 DCW [id number]) Manual Assessments Soft Tissue Assessment Soft Tissue Mobility Moderate tone with tenderness to palpation 3/4: wincing Assessment and withdraw R>L suboccipitals, Upper Trap, Scalenes, SCM PT-OP-K Range of Motion Start: 07/09/24 13:39 Freq: Status: Active Protocol: Document 07/09/24 10:50 DCW (Rec: 07/09/24 17:55 DCW [id number]) Cervical Spine Range of Motion Cervical Spine Active Degrees Testing Position Sitting Flexion 55 Extension 30 Rotation Left 52 Rotation Right 63 Lateral Flexion Left 25 Lateral Flexion 20 Right ROM Limitations Soft Tissue Tightness,Muscle Weakness,Muscle Tone,Pain Shoulder Goniometric Range of Motion Shoulder Right Active Testing Position Sitting Flexion 150 Abduction 150 External Rotation at 26 0 degrees Abduction Internal Rotation T7 Behind Back (text) Left Active Shoulder ROM WFL No Testing Position Sitting Flexion 101 Abduction 106 External Rotation at 14 0 degrees Abduction Internal Rotation T10 Behind Back (text) PT-OP-L Special Tests Start: 07/09/24 13:39 Freq: Status: Active Protocol: Document 07/09/24 10:50 DCW (Rec: 07/09/24 17:55 DCW [id number]) Special Tests Cervical Spine Special Tests Spurling's Test Test Results Negative Slump Test Results Posterior neck discomfort Passive Neck Flexion Test Results Posterior neck discomfort Foraminal Compression Test Results Negative PT-OP-T Assessment and Plan Start: 07/09/24 13:39 Freq: Status: Active Protocol: Document 03/31/25 10:19 DCW (Rec: 03/31/25 10:20 DCW [id number]) Physical Therapy Assessment Assessment Summary Assessment Pt has not been seen in eight months, will be discharged from skilled therapy at this time. Pt will need a new referral to return to PT in the future. Physical Therapy Plan Discharge Physical Therapy Discharge Reasons No Longer Attending PT Next Visit Focus/Plan Next Note Type Discharge Summary
== END 2025-04-01 10:48 | disposition home or self-care (01) ==
LOC: PHYS 10:45
PROVIDERS: Family Provider Family Medicine; PCP Family Medicine; Referring Provider Family Medicine; Visit Provider Family Medicine
DX: M25.561 Pain in right knee (principal); M25.562 Pain in left knee; M25.511 Pain in right shoulder; M19.90 Unspecified osteoarthritis, unspecified site; M54.2 Cervicalgia; M25.512 Pain in left shoulder
CPT/HCPCS: 97110; 97163

== ENCOUNTER 2024-12-23 19:50 | Emergency (ER) | payer MEDICARE, SELFPAY ==
[2022-07-11 12:01] VITALS: BMI 26.4
[2024-12-23 19:53] VITALS: BP 175/77; PULSE 73; RESP 16; TEMP 36.7; O2SAT 98; BMI 28.3
--- NOTE | 2024-12-23 21:02 | ED.WOUNDLAC ---
HPI - Wound/Laceration General Chief Complaint: Wound/Laceration Stated Complaint: Bump On R Wrist Time Seen by Provider: 12/23/24 19:58 Source: patient Mode of arrival: Ambulatory History of Present Illness HPI narrative: 79-year-old female presents with insect bite to the right dorsum of the wrist yesterday thinks it was a yellow jacket but unsure and had some white discharge, with redness and warmth to the area and she has been cleaning the area with OTC meds with no significant relief of her symptoms. Patient denies fever, chills, numbness, tingling, or any other trauma to the area. Other than what is stated 14 point review of system is negative. Related Data Home Medications ?Medication ?Instructions ?Recorded ?Confirmed amlodipine 5 mg tablet 5 mg PO QPM 01/16/19 07/03/24 ascorbic acid (vitamin C) 1,000 mg 1,000 mg PO DAILY 01/16/19 07/03/24 tablet (Vitamin C) cholecalciferol (vitamin D3) 10 10 mcg PO DAILY 01/16/19 07/03/24 mcg (400 unit) capsule (Vitamin D3) multivitamin 1 tab PO DAILY 01/16/19 07/03/24 Previous Rx's ?Medication ?Instructions ?Recorded nirmatrelvir 300 mg (150 mg See Rx Instructions PO .COMPLEX 04/25/24 x2)-ritonavir 100 mg tablet,dose #30 ea pack (Paxlovid) Synthroid 137 mcg tablet 137 mcg PO DAILY #90 tabs 07/09/24 (levothyroxine) fluocinonide 0.05 % topical cream 1 applic topical BID PRN rash #30 07/09/24 grams albuterol sulfate 90 mcg/actuation 1 puff inhalation Q4-6H PRN 08/14/24 aerosol inhaler Shortness Of Breath #8.5 grams DHEA, TEST, PROG See Rx Instructions .Route 11/18/24 .COMPLEX #45 grams bacitracin 500 unit/gram topical 1 applic topical Q8H #14 grams 12/23/24 ointment famotidine 20 mg tablet (Pepcid) 20 mg PO BID #10 tabs 12/23/24 prednisone 20 mg tablet 20 mg PO DAILY #5 tabs 12/23/24 Allergies Allergy/AdvReac Type Severity Reaction Status Date / Time abaloparatide (From Tymlos) AdvReac Severe It made Verified 12/23/24 19:53 me feel really bad, aches, pains epinephrine (EPINEPHRINE) AdvReac Severe Flushed, Verified 12/23/24 19:53 SOB Pxxapcy-IGT-FkN Reductase AdvReac Severe Heart Verified 12/23/24 19:53 Inhibitor (VZIPZGP-BSS-TUM attack REDUCTASE INHIBITOR) symptoms tetracycline (TETRACYCLINE) AdvReac Severe Flushed, Verified 12/23/24 19:53 SOB ciprofloxacin (From CIPRO) AdvReac Intermediate Fushed, SOB Verified 12/23/24 19:53 VALERIAN ROOT AdvReac Unknown Pt does Uncoded 12/23/24 19:53 not recall reaction Review of Systems Review of Systems ROS Unobtainable: All systems reviewed & are unremarkable except as noted in HPI and below Patient History Medical History Environmental allergies Anxiety and depression Easy bruisability Skin cancer Arthritis Osteopenia Osteoarthritis Osteoporosis GERD (gastroesophageal reflux disease) HTN (hypertension) HLD (hyperlipidemia) Tinnitus Hypothyroid Surgical History Hx of vein stripping History of surgery H/O left wrist surgery (~2012) H/O right wrist surgery (~2009) History of right knee joint replacement History of left knee replacement History of surgery Hx of oophorectomy History of hysterectomy Hx of appendectomy History of tonsillectomy and adenoidectomy Hx of bilateral cataract extraction History of bilateral knee replacement Social History household members: spouse alcohol intake: current alcohol intake frequency: 0-2 drinks per day Exam Narrative Exam Narrative: GENERAL: [79 year old patient appears stated age. Well-developed patient, in mild distress. HEAD: Atraumatic. Normocephalic. EYES: Pupils equal round and reactive. Extraocular motions intact. No scleral icterus. No injection or drainage. NECK: Trachea midline. Non tender EXTREMITIES: No edema or joint tenderness. Right dorsum of hand wrist dime-sized circular insect bite lesion with minimal redness, warmth but no fluctuance or streaking up the arm motor sensory intact to radial pulse cap refill less than 2nd BACK: Nontender without deformity or crepitance. No flank tenderness. NEURO: AOx3. SKIN: No rash or erythema of visible areas Initial Vital Signs Initial Vital Signs: Vital Signs Temperature 98.0 F 12/23/24 19:53 Pulse Rate 73 12/23/24 19:53 Respiratory Rate 16 12/23/24 19:53 Blood Pressure 175/77 H 12/23/24 19:53 Pulse Oximetry 98 12/23/24 19:53 Oxygen Delivery Method Room Air 12/23/24 19:53 Course Vital Signs Vital signs: Vital Signs - 8 hr 12/23/24 19:53 Temperature 98.0 F Pulse Rate 73 Respiratory Rate 16 Blood Pressure 175/77 H Pulse Oximetry 98 Oxygen Delivery Method Room Air MDM - Wound/Laceration MDM Narrative Medical decision making narrative: Vital signs, nurse triage note, medication list, previous ER visits, and all imaging studies reviewed. Patient given bacitracin prednisone Pepcid here and will be discharged on all 3. Differential diagnosis includes cellulitis allergic reaction MRSA. Return with new or worsening symptoms. Discharge Plan Departure Patient Disposition: Home Clinical Impression: Insect bite Activity Restrictions/Additional Instructions: Return with new or worsening symptoms. Take your medicines as directed. Follow up PCP 1-2 weeks if no improvement in symptoms. Prescriptions: New bacitracin 500 unit/gram ointment 1 applic topical Q8H Qty: 14 0RF prednisone 20 mg tablet 20 mg PO DAILY Qty: 5 0RF famotidine [Pepcid] 20 mg tablet 20 mg PO BID Qty: 10 0RF No Action fluocinonide 0.05 % cream 1 applic topical BID PRN (Reason: rash) Qty: 30 0RF levothyroxine [Synthroid] 137 mcg tablet 137 mcg PO DAILY Qty: 90 1RF albuterol sulfate 90 mcg/actuation HFA aerosol inhaler 1 puff INHALATION Q4-6H PRN (Reason: Shortness Of Breath) Qty: 8.5 3RF DHEA, TEST, PROG See Rx Instructions .ROUTE .COMPLEX Qty: 45 3RF Rx Instructions: DHEA/testosterone/progesterone 50mg/5mg/25mg per gram of cream, apply 1 pump (0.5g) topically to rotating sites 5 out of 7 days per week. 45g total (90 days), 0.5g blue pump. Paxlovid 300 mg (150 mg x 2)-100 mg tablets,dose pack See Rx Instructions .ROUTE .COMPLEX Qty: 30 0RF Rx Instructions: take TWO 150 mg tablets of nirmatrelvir with ONE 100 mg tablet of ritonavir twice daily for 5 days amlodipine 5 mg tablet 5 mg PO QPM multivitamin Tablet 1 tab PO DAILY ascorbic acid (vitamin C) [Vitamin C] 1,000 mg Tablet 1,000 mg PO DAILY cholecalciferol (vitamin D3) [Vitamin D3] 10 mcg (400 unit) Capsule 10 mcg PO DAILY Referrals: Biju Garcia MD [Primary Care Provider, Family Practice] Stand Alone Forms: Patient Portal/API
[2024-12-23] MEDS: predniSONE 20 MG TABLET 60 MG PO (21:09)
[2024-12-23] MEDS: BACITRACIN OINT 0.9 GM PCKT 1 APPLIC TOP (21:10)
[2024-12-23] MEDS: FAMOTIDINE 20 MG TABLET PO (21:10)
[2024-12-23 21:24] VITALS: BP 182/78; PULSE 85; RESP 19; TEMP 36.9; O2SAT 98
== END 2024-12-23 21:25 | disposition home or self-care (01) ==
PROVIDERS: Emergency Provider Family Medicine; Family Provider Family Medicine; PCP Family Medicine
DX: S60.861A Insect bite (nonvenomous) of right wrist, initial encounter (principal); W57.XXXA Bitten or stung by nonvenomous insect and other nonvenomous arthropods, initial encounter
CPT/HCPCS: 99283; A9270

== ENCOUNTER 2025-01-13 14:25 | Emergency (ER) | payer MEDICARE, SELFPAY ==
[2022-07-11 12:01] VITALS: BMI 26.4
[2025-01-13] VITALS (9 sets, daily range): BP systolic 133–180; BP diastolic 63–76; PULSE 76–89; RESP 12–28; TEMP 36.4–36.7; O2SAT 95–98; BMI 26.5
--- NOTE | 2025-01-13 14:44 | EKG_ITS ---
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
--- NOTE | 2025-01-13 15:36 | DI.CT.S_ITS ---
PROCEDURE: CT CHEST WO CON INDICATIONS: R lower rib pain TECHNIQUE: Noncontrast 5 mm thick sections acquired from the pulmonary apices to the posterior costophrenic angles. 1 mm lung window, 5 mm thick coronal and sagittal and 7 mm axial MIP reformats were then acquired. For radiation dose reduction, the following was used: automated exposure control, adjustment of mA and/or kV according to patient size. COMPARISON: None. FINDINGS: Image quality: Diagnostic. Lower Neck: No enlarged lymph nodes. Thyroid: No thyroid nodules which require sonographic follow up, per consensus guidelines. Axillae: No enlarged lymph nodes. Chest Wall: Unremarkable. Bones: Minimally displaced right anterior 5th rib fracture. Lungs and Pleura: No pneumothorax or pleural effusions. No consolidation or suspicious nodules. Bibasilar atelectasis. Heart: Heart size is mildly enlargedmildly enlarged. No pericardial effusion. Thoracic Vessels: The aorta and pulmonary arteries demonstrate normal size. Mediastinum and Valerie: No enlarged lymph nodes. Esophagus: No wall thickening. Large hiatal hernia. Upper Abdomen: Visualized upper abdomen solid organs and bowel loops appear normal. IMPRESSION: Minimally displaced right anterior 5th rib fracture. No pneumothorax or effusion. Large hiatal hernia. Dictated by: Neri Cerda M.D. on 01/13/2025 at 16:25 Approved by: Neri Cerda M.D. on 01/13/2025 at 16:29
--- NOTE | 2025-01-14 15:20 | ED.CHESTPAIN ---
HPI - Chest Pain General Chief Complaint: Chest Pain Stated Complaint: Rt side rib,chest pain Time Seen by Provider: 01/13/25 14:45 Source: patient Mode of arrival: Ambulatory Limitations: no limitations History of Present Illness HPI narrative: 79-year-old female with past medical history hypothyroidism, hypertension, hyperlipidemia, GERD, osteoporosis presents to the ED with sudden onset lower right-sided rib pain 2 weeks ago. Patient states that this happened when she was gardening. Patient endorses that the pain is worse with palpation, sudden movements, coughing and inspiration. No shortness of breath, fever, chills, nausea, vomiting, lightheadedness, dizziness, syncope. No other trauma. Patient is not on blood thinners. Related Data Home Medications ?Medication ?Instructions ?Recorded ?Confirmed amlodipine 5 mg tablet 5 mg PO QPM 01/16/19 07/03/24 ascorbic acid (vitamin C) 1,000 mg 1,000 mg PO DAILY 01/16/19 07/03/24 tablet (Vitamin C) cholecalciferol (vitamin D3) 10 10 mcg PO DAILY 01/16/19 07/03/24 mcg (400 unit) capsule (Vitamin D3) multivitamin 1 tab PO DAILY 01/16/19 07/03/24 Previous Rx's ?Medication ?Instructions ?Recorded nirmatrelvir 300 mg (150 mg See Rx Instructions PO .COMPLEX 04/25/24 x2)-ritonavir 100 mg tablet,dose #30 ea pack (Paxlovid) fluocinonide 0.05 % topical cream 1 applic topical BID PRN rash #30 07/09/24 grams albuterol sulfate 90 mcg/actuation 1 puff inhalation Q4-6H PRN 08/14/24 aerosol inhaler Shortness Of Breath #8.5 grams DHEA, TEST, PROG See Rx Instructions .Route 11/18/24 .COMPLEX #45 grams bacitracin 500 unit/gram topical 1 applic topical Q8H #14 grams 12/23/24 ointment famotidine 20 mg tablet (Pepcid) 20 mg PO BID #10 tabs 12/23/24 prednisone 20 mg tablet 20 mg PO DAILY #5 tabs 12/23/24 Synthroid 137 mcg tablet 137 mcg PO DAILY #90 tabs 01/08/25 (levothyroxine) oxycodone-acetaminophen 5 mg-325 1 tab PO Q8H PRN pain #10 tabs 01/13/25 mg tablet (Endocet) Allergies Allergy/AdvReac Type Severity Reaction Status Date / Time abaloparatide (From Tymlos) AdvReac Severe It made Verified 01/13/25 14:44 me feel really bad, aches, pains epinephrine (EPINEPHRINE) AdvReac Severe Flushed, Verified 01/13/25 14:44 SOB Kqodrrl-TAA-VpL Reductase AdvReac Severe Heart Verified 01/13/25 14:44 Inhibitor (HGLEMCS-FWC-MCD attack REDUCTASE INHIBITOR) symptoms tetracycline (TETRACYCLINE) AdvReac Severe Flushed, Verified 01/13/25 14:44 SOB ciprofloxacin (From CIPRO) AdvReac Intermediate Fushed, SOB Verified 01/13/25 14:44 VALERIAN ROOT AdvReac Unknown Pt does Uncoded 01/13/25 14:44 not recall reaction Review of Systems Constitutional Constitutional: Denies chills, Denies fatigue, Denies fever(s), Denies frequent falls, Denies lethargy and Denies weakness Eyes Eyes: Denies change in vision, Denies eye discharge, Denies irritation and Denies loss of vision ENT Ears, Nose, Mouth, and Throat: Denies change in voice, Denies dizziness, Denies neck pain, Denies sore throat and Denies throat swelling Cardiovascular Cardiovascular: Denies chest pain, Denies irregular heart rhythm, Denies lightheadedness, Denies palpitations, Denies dyspnea, Denies dyspnea on exertion and Denies orthopnea Respiratory Respiratory: Denies cough, Denies dyspnea, Denies dyspnea on exertion and Denies wheezing Gastrointestinal Gastrointestinal: Denies abdominal pain, Denies change in bowel habits, Denies diarrhea, Denies nausea and Denies vomiting Musculoskeletal Musculoskeletal: Denies neck pain and Denies numbness Comments: Right-sided lower rib pain Integumentary/Breasts Skin/Breast: Denies pruritus, Denies erythema, Denies rash and Denies wounds Neurologic Neurologic: Denies behavioral changes, Denies confusion, Denies dizziness, Denies frequent falls, Denies loss of vision, Denies numbness and Denies weakness Psychiatric Psychiatric: Denies anxiety, Denies behavioral changes, Denies confusion, Denies depression, Denies homicidal ideation and Denies suicidal ideation Endocrine Endocrine: Denies fatigue, Denies flushing and Denies palpitations Hematologic/Lymphatic Hematologic/Lymphatic: Denies easy bruising Allergic/Immunologic Allergic/Immunologic: Denies urticaria, Denies throat swelling and Denies wheezing Patient History Medical History Environmental allergies Anxiety and depression Easy bruisability Skin cancer Arthritis Osteopenia Osteoarthritis Osteoporosis GERD (gastroesophageal reflux disease) HTN (hypertension) HLD (hyperlipidemia) Tinnitus Hypothyroid Surgical History Hx of vein stripping History of surgery H/O left wrist surgery (~2012) H/O right wrist surgery (~2009) History of right knee joint replacement History of left knee replacement History of surgery Hx of oophorectomy History of hysterectomy Hx of appendectomy History of tonsillectomy and adenoidectomy Hx of bilateral cataract extraction History of bilateral knee replacement Social History household members: spouse alcohol intake: current Smoking Status: Never smoker alcohol intake frequency: 0-2 drinks per day Alcohol type: wine Exam Narrative Exam Narrative: Const General:?cooperative, healthy appearing and comfortable [facility] Head:?normal to inspection Ears:?hearing grossly normal bilaterally Nose:?external nose normal Face and sinus:?normal facial exam and sinuses nontender Mouth:?oral mucosae normal Throat:?posterior oropharynx normal Eyes General:?appearance normal, both eyes and all related structures Neck Neck:?normal visual inspection and no lymphadenopathy noted Resp Effort & Inspection:?normal respiratory effort Auscultation:?clear to auscultation bilaterally Cardio Rate:?regular rate Rhythm:?regular rhythm Musculoskeletal There is point tenderness to the right lower rib area. No bruising or deformities noted. Neuro General:?patient alert, patient awake and patient oriented x3 Initial Vital Signs Initial Vital Signs: Vital Signs Pulse Rate 89 01/13/25 14:42 Pulse Oximetry 96 01/13/25 14:42 MDM - Chest Pain MDM Narrative Medical decision making narrative: 79-year-old female with past medical history hypothyroidism, hypertension, hyperlipidemia, GERD, osteoporosis presents to the ED with sudden onset lower right-sided rib pain 2 weeks ago. Concern for rib fracture/rib contusion versus other. Chest CT was obtained which shows a minimally displaced right anterior 5th rib fracture. No pneumothorax or effusion. Large hiatal hernia. RT was consulted for incentive spirometry. Discussed findings with patient. Patient sent home with pain medications and incentive spirometry. ED return precautions were discussed with patient. Patient verbalized understanding. Medical records reviewed: Yes Discharge Plan Departure Patient Disposition: Home Clinical Impression: Fracture of rib Qualifiers: Encounter type: initial encounter Rib fracture type: single rib Fracture type: closed Laterality: right Qualified Code(s): S22.31XA - Fracture of one rib, right side, initial encounter for closed fracture Instructions: DI for Rib Fracture Activity Restrictions/Additional Instructions: You were evaluated in the emergency department today for lower right-sided rib pain. The CT scan did show a fractured rib which is likely causing your symptoms. You are being prescribed in control, which might make you sleepy, therefore do not use when driving or operating any machinery. You were also being sent home with a spirometer to encourage deep breathing to prevent pneumonia. Please follow-up with your PCP as soon as possible. Return to the ED if you have worsening symptoms, shortness of breath, chest pain. Prescriptions: New oxycodone-acetaminophen [Endocet] 5-325 mg tablet 1 tab PO Q8H PRN (Reason: pain) Qty: 10 0RF No Action fluocinonide 0.05 % cream 1 applic topical BID PRN (Reason: rash) Qty: 30 0RF albuterol sulfate 90 mcg/actuation HFA aerosol inhaler 1 puff INHALATION Q4-6H PRN (Reason: Shortness Of Breath) Qty: 8.5 3RF DHEA, TEST, PROG See Rx Instructions .ROUTE .COMPLEX Qty: 45 3RF Rx Instructions: DHEA/testosterone/progesterone 50mg/5mg/25mg per gram of cream, apply 1 pump (0.5g) topically to rotating sites 5 out of 7 days per week. 45g total (90 days), 0.5g blue pump. levothyroxine [Synthroid] 137 mcg tablet 137 mcg PO DAILY Qty: 90 1RF Paxlovid 300 mg (150 mg x 2)-100 mg tablets,dose pack See Rx Instructions .ROUTE .COMPLEX Qty: 30 0RF Rx Instructions: take TWO 150 mg tablets of nirmatrelvir with ONE 100 mg tablet of ritonavir twice daily for 5 days amlodipine 5 mg tablet 5 mg PO QPM multivitamin Tablet 1 tab PO DAILY ascorbic acid (vitamin C) [Vitamin C] 1,000 mg Tablet 1,000 mg PO DAILY cholecalciferol (vitamin D3) [Vitamin D3] 10 mcg (400 unit) Capsule 10 mcg PO DAILY bacitracin 500 unit/gram ointment 1 applic topical Q8H Qty: 14 0RF prednisone 20 mg tablet 20 mg PO DAILY Qty: 5 0RF famotidine [Pepcid] 20 mg tablet 20 mg PO BID Qty: 10 0RF Referrals: Biju Garcia MD [Primary Care Provider, Family Practice] Stand Alone Forms: Patient Portal/API
== END 2025-01-13 17:13 | disposition home or self-care (01) ==
PROVIDERS: Emergency Provider Student in an Organized Health Care Education/Training Program; Family Provider Family Medicine; PCP Family Medicine
DX: S22.31XA Fracture of one rib, right side, initial encounter for closed fracture (principal); X58.XXXA Exposure to other specified factors, initial encounter; Y93.H2 Activity, gardening and landscaping
CPT/HCPCS: 71250; 93005; 99281; 99284

== ENCOUNTER 2025-05-20 10:17 | Inpatient (IN) | payer MEDICARE, SELFPAY ==
[2022-07-11 12:01] VITALS: BMI 26.4
[2025-05-20] VITALS (25 sets, daily range): BP systolic 102–193; BP diastolic 56–91; PULSE 70–98; RESP 16–18; TEMP 36.1–36.8; O2SAT 91–99; BMI 26.4
--- NOTE | 2025-05-20 10:38 | ED.TRAUMA ---
HPI - Trauma General Chief Complaint: Fall Stated Complaint: Slid off couch last nigh, 0 thinners Time Seen by Provider: 05/20/25 10:20 History of Present Illness HPI narrative: 79-year-old female medical history hypothyroidism hypertension dyslipidemia GERD osteoporosis presents via EMS after being found by the mailman on the ground asking for help slid off the couch. She denies any headache, dizziness, blurred vision, chest pain, shortness breath, back pain, headache, dizziness, loss of consciousness, leg, arm pain, abdominal pain, bowel or bladder incontinence. Patient feels weak at this time soiled and urine. Other than what is stated 14 point review system is negative. Related Data Home Medications ?Medication ?Instructions ?Recorded ?Confirmed amlodipine 5 mg tablet 5 mg PO QPM 01/16/19 05/02/25 ascorbic acid (vitamin C) 1,000 mg 1,000 mg PO DAILY 01/16/19 05/02/25 tablet (Vitamin C) cholecalciferol (vitamin D3) 10 10 mcg PO DAILY 01/16/19 05/02/25 mcg (400 unit) capsule (Vitamin D3) multivitamin 1 tab PO DAILY 01/16/19 05/02/25 Previous Rx's ?Medication ?Instructions ?Recorded nirmatrelvir 300 mg (150 mg See Rx Instructions PO .COMPLEX 04/25/24 x2)-ritonavir 100 mg tablet,dose #30 ea pack (Paxlovid) fluocinonide 0.05 % topical cream 1 applic topical BID PRN rash #30 07/09/24 grams albuterol sulfate 90 mcg/actuation 1 puff inhalation Q4-6H PRN 08/14/24 aerosol inhaler Shortness Of Breath #8.5 grams DHEA, TEST, PROG See Rx Instructions .Route 11/18/24 .COMPLEX #45 grams bacitracin 500 unit/gram topical 1 applic topical Q8H #14 grams 12/23/24 ointment famotidine 20 mg tablet (Pepcid) 20 mg PO BID #10 tabs 12/23/24 prednisone 20 mg tablet 20 mg PO DAILY #5 tabs 12/23/24 Synthroid 137 mcg tablet 137 mcg PO DAILY #90 tabs 01/08/25 (levothyroxine) oxycodone-acetaminophen 5 mg-325 1 tab PO Q8H PRN pain #10 tabs 01/13/25 mg tablet (Endocet) Disabled Parking Permit #1 ea 02/05/25 Allergies Allergy/AdvReac Type Severity Reaction Status Date / Time abaloparatide (From Tymlos) AdvReac Severe It made Verified 05/20/25 10:46 me feel really bad, aches, pains epinephrine (EPINEPHRINE) AdvReac Severe Flushed, Verified 05/20/25 10:46 SOB Fgwuxju-SJP-NxU Reductase AdvReac Severe Heart Verified 05/20/25 10:46 Inhibitor ([id number]-OQF-LDH attack REDUCTASE INHIBITOR) symptoms tetracycline (TETRACYCLINE) AdvReac Severe Flushed, Verified 05/20/25 10:46 SOB ciprofloxacin (From CIPRO) AdvReac Intermediate Fushed, SOB Verified 05/20/25 10:46 [place] ROOT AdvReac Unknown Pt does Uncoded 05/20/25 10:46 not recall reaction Review of Systems Review of Systems ROS Unobtainable: All systems reviewed & are unremarkable except as noted in HPI and below Patient History Medical History (Updated 05/20/25 @ 14:31 by Aiden Bai DO) Primary osteoarthritis of both knees Environmental allergies Anxiety and depression Easy bruisability Skin cancer Arthritis Osteopenia Osteoarthritis Osteoporosis GERD (gastroesophageal reflux disease) HTN (hypertension) HLD (hyperlipidemia) Tinnitus Hypothyroid Surgical History Hx of vein stripping History of surgery H/O left wrist surgery (~2012) H/O right wrist surgery (~2009) History of right knee joint replacement History of left knee replacement History of surgery Hx of oophorectomy History of hysterectomy Hx of appendectomy History of tonsillectomy and adenoidectomy Hx of bilateral cataract extraction History of bilateral knee replacement Social History household members: spouse Smoking Status: Never smoker alcohol intake: current alcohol intake frequency: 0-2 drinks per day Alcohol type: wine Exam Narrative Exam Narrative: GENERAL: [79] year old patient appears stated age. Well-developed patient, in mild distress. HEAD: Atraumatic. Normocephalic. EYES: Pupils equal round and reactive. Extraocular motions intact. No scleral icterus. No injection or drainage. ENT: Nose without bleeding, purulent drainage. Throat without erythema, tonsillar hypertrophy or exudate. Airway patent. NECK: Trachea midline. Non tender CARDIOVASCULAR: Regular rate and rhythm without murmurs, gallops, or rubs. RESPIRATORY: Clear to auscultation. Breath sounds equal bilaterally. No wheezes, rales, or rhonchi. GASTROINTESTINAL: Abdomen soft, non-tender, nondistended. EXTREMITIES: No edema or joint tenderness. BACK: Nontender without deformity or crepitance. No flank tenderness. NEURO: AOx3. SKIN: No rash or erythema of visible areas Initial Vital Signs Initial Vital Signs: Vital Signs Temperature 97.5 F L 05/20/25 10:47 Pulse Rate 92 H 05/20/25 10:47 Respiratory Rate 18 05/20/25 10:47 Blood Pressure 141/83 H 05/20/25 10:47 Pulse Oximetry 99 05/20/25 10:47 Oxygen Delivery Method Room Air 05/20/25 10:47 Procedures Laceration Repair Laceration 1: Size (cm): 2.0 Description: linear and clean Depth: involves muscle layer Local Anesthetic: lidocaine 2% Amount of anesthesia used (mL): 3 Pre-repair: wound explored, irrigated extensively and deep structures intact Skin layer closed with: nylon Skin layer suture size: 4-0 Number of sutures: 5 Course Orders Ordered: ED Orders 05/20/25 10:20 Complete Blood Count AUTO DIFF Stat Comprehensive Metabolic Panel Stat Lipase Stat Magnesium Stat NT-proBNP (BNP-Adult 18+) Stat Troponin I Stat 05/20/25 10:43 XR chest 1V Stat XR pelvis 1-2V Stat EKG-12 Lead Stat 05/20/25 10:51 XR elbow LT min 3V Stat Lactated Ringer's (Lactated Ringers) 1,000 mls @ 1,000 mls/hr IV BOLUS ONE Stop: 05/20/25 11:43 Last Admin: 05/20/25 10:58 Dose: 1,000 mls/hr Documented By: JOSE LUIS Discontinued Medications Diphtheria/Tetanus/Acell Pertussis (Tet,Diph,Pertuss(Acell),Vac/Pf 0.5 Ml Syringe) 0.5 ml IM .ONCE ONE Stop: 05/20/25 10:45 Last Admin: 05/20/25 10:57 Dose: 0.5 ml Documented By: JOSE LUIS Vital Signs Vital signs: Vital Signs - 8 hr 05/20/25 10:47 Temperature 97.5 F L Pulse Rate 92 H Respiratory Rate 18 Blood Pressure 141/83 H Pulse Oximetry 99 Oxygen Delivery Method Room Air MDM - Trauma Lab Data 05/20/25 10:20 05/20/25 10:20 Labs: Lab Results 05/20/25 Range/Units 10:20 WBC 15.1 H (4.5-11.0) X10^3/uL RBC 4.99 (4.0-5.2) X10^6/uL Hgb 15.7 (12.0-16.0) g/dL Hct 46.1 H (36-46) % MCV 92.4 (80-100) fL MCH 31.6 (26-34) PG MCHC 34.1 (30-36) % RDW 12.3 (11.6-14.8) % Plt Count 305 (150-400) X10^3/uL Neut % (Auto) 89.7 H (50-75) % Lymph % (Auto) 3.7 L (25-40) % [place] % (Auto) 6.5 (3-14) % Eos % (Auto) 0.0 L (2-4) % Baso % (Auto) 0.1 (0-2) % Neut # (Auto) 94683 H (0245-1702) /uL Lymph # (Auto) 600 L (2416-7745) /uL [place] # (Auto) 1000 H (0-900) /uL Eos # (Auto) 0 (0-450) /uL Baso # (Auto) 0 (0-100) /uL Sodium 132 L (137-145) mmol/L Potassium 4.2 (3.4-5.1) mmol/L Chloride 94 L (98-107) mmol/L Carbon Dioxide 23 (22-32) mmol/L BUN 8 (7-17) mg/dL Creatinine 0.47 L (0.52-1.04) mg/dL Estimated GFR > 60 (>60) mL/min BUN/Creatinine Ratio 17.0 (6-22) Glucose 179 H (70-99) mg/dL Calcium 9.5 (8.4-10.2) mg/dL Magnesium 1.8 (1.6-2.3) mg/dL Total Bilirubin 1.3 (0.2-1.3) mg/dL AST 54 H (14-36) IU/L ALT 32 (<35) IU/L Alkaline Phosphatase 91 (38-126) U/L Troponin I < 0.012 (0.01-0.034) ng/mL NT-Pro-B Natriuret Pep 576 H (<450) pg/mL Total Protein 9.8 H (6.3-8.2) g/dL Albumin 5.6 H (3.5-5.0) g/dL Globulin 4.2 H (1.7-4.1) g/dL Albumin/Globulin Ratio 1.3 (1.0-2.8) Lipase 60 (23-300) U/L Urine Dip Bedside Urine Glucose Negative Bedside Urine Bilirubin - Negative Bedside Urine Ketone +++ 80 Urine Specific [place] 1.010 Bedside Urine Occult Blood ++ Bedside Urine pH 7.0 Bedside Urine Protein +/- 15 Bedside Urine Urobilinogen - Negative Bedside Urine Nitrite - Negative Bedside Urine Leukocytes - Negative Esterase Imaging Data Chest x-ray: Radiologist's Impression: Chest [id number] [place] [id number] XRay Report Signed Patient: Valerie Wang MR#: [id number] : 1945 Acct:[id number] Age/Sex: 79 / F Date of Service: 05/20/25 Loc: ED Accession Number: [id number] Procedure: XR chest 1V Ordering Provider: Aiden Bai D.O. PROCEDURE: XR CHEST 1V INDICATIONS: trauma / L hip pain TECHNIQUE: One view of the chest was acquired. COMPARISON: [facility], , XR CHEST 1V, 04/25/2024, 16:10. FINDINGS: Surgical changes and devices: Partially visualized left shoulder reverse arthroplasty. Lungs and pleura: Lungs are clear. No pleural effusions or pneumothorax. Mediastinum: Mediastinal contours appear normal. Heart size is normal. Bones and chest wall: No suspicious bony lesions. Overlying soft tissues appear unremarkable. IMPRESSION: No acute cardiopulmonary abnormality is seen. Dictated by: Bharati Hopson MD, PhD on 05/20/2025 at 11:21 Approved by: Bharati Hopson MD, PhD on 05/20/2025 at 11:22 Extremity x-ray #1: Radiologist's Impression: [place] [address] [address] XRay Report Signed Patient: Valerie Wang MR#: [id number] : 1945 Acct:[id number] Age/Sex: 79 / F Date of Service: 05/20/25 Loc: ED Accession Number: [id number] Procedure: XR pelvis 1-2V Ordering Provider: Aiden Bai D.O. PROCEDURE: XR PELVIS 1-2V INDICATIONS: trauma / L hip pain TECHNIQUE: 1 view(s) of the pelvis acquired. COMPARISON: None. FINDINGS: Bones: No acute fractures or dislocations. Chronic appearing left obturator ring fracture healed with mild deformity. No suspicious bony lesions. Soft tissues: Visualized bowel gas pattern is normal. No suspicious soft tissue calcifications. IMPRESSION: No acute bony abnormality. Extremity x-ray #2: Radiologist's Impression: [address] [address] XRay Report Signed Patient: Valerie Wang MR#: [id number] : 1945 Acct:[id number] Age/Sex: 79 / F Date of Service: 05/20/25 Loc: ED Accession Number: [id number] Procedure: XR elbow LT min 3V Ordering Provider: Aiden Bai D.O. PROCEDURE: XR ELBOW LT MIN 3V INDICATIONS: L elbow TECHNIQUE: 3 views of the elbow were acquired. COMPARISON: None. FINDINGS: Bones: No fractures or dislocations. No suspicious bony lesions. Soft tissues: No elbow joint effusion. No suspicious soft tissue calcifications. IMPRESSION: No acute bony abnormality or significant joint effusion. Dictated by: Bharati Hopson MD, PhD on 05/20/2025 at 11:22 Approved by: Bharati Hopson MD, PhD on 05/20/2025 at 11:23 CT scan - abdomen/pelvis: Radiologist's Impression: [address] [address] [address] Scan Report Signed Patient: Valerie Wang MR#: [id number] : 1945 Acct:[id number] Age/Sex: 79 / F Date of Service: 05/20/25 Loc: ED Accession Number: [id number] Procedure: CT pelvis wo con Ordering Provider: Aiden Bai D.O. PROCEDURE: CT PEL WO CON INDICATIONS: L hip pain TECHNIQUE: Noncontrast 3 mm axial sections acquired through the bony pelvis, with coronal and sagittal reformatting. COMPARISON: None. FINDINGS: Image quality: Excellent. Bones: There is a left sacral insufficiency fracture. There is a fracture involving the anterior column of the left acetabulum. There is a fracture involving the left inferior pubic ramus. There is a left pubic symphysis fracture. No left hip fracture. Soft tissues: Moderate rectal fecal impaction with associated stercoral colitis. Sigmoid diverticulosis. Uterus is surgically absent. IMPRESSION: 1. There are multiple left-sided fractures, involving the anterior column of the left acetabulum, the left pubic symphysis, and the left inferior pubic ramus. Additionally, there is a left-sided sacral insufficiency fracture. 2. No hip fracture or dislocation. 3. Moderate rectal fecal impaction with associated stercoral colitis. ECG Data Interpretation: NSR HR 95 AK 204 QRS [address]-t wave change Unchanged from 01/13/25 MDM Narrative Medical decision making narrative: All lab work, vital signs, nurse triage note, medication list, previous ER visits, and all imaging studies reviewed. WBC 15.1 hemoglobin 15.7 platelets 305 sodium 132 has not 4.2 chloride 94 CO2 23 BUN 8 creatinine 0.47 glucose 179 magnesium 1.8 troponin less than 0.012 BNP 576 lipase 60. Chest x-ray showed no acute process. Pelvic x-ray showed no acute process. Elbow x-ray showed no acute bony abnormality or significant joint effusion. Five stitches single interrupted using 4-0 nylon placed left elbow. Pelvic CT showed multiple left-sided fractures involving the anterior column of the left acetabulum, left pubic symphysis, in the left inferior pubic ramus. Additionally there is left-sided sacral insufficiency fracture. No hip fracture or dislocation. Moderate fecal rectal impaction with associated sterile [place] colitis. Case d/w Dr.Reem Juany [facility] pain mgmt at this time. Patient given lactated ringer 1 L bolus. [place]. Discharge Plan Departure Clinical Impression: Elbow laceration, Acetabular fracture, Closed fracture of pubic ramus Prescriptions: No Action fluocinonide 0.05 % cream 1 applic topical BID PRN (Reason: rash) Qty: 30 0RF albuterol sulfate 90 mcg/actuation HFA aerosol inhaler 1 puff INHALATION Q4-6H PRN (Reason: Shortness Of Breath) Qty: 8.5 3RF DHEA, TEST, PROG See Rx Instructions .ROUTE .COMPLEX Qty: 45 3RF Rx Instructions: DHEA/testosterone/progesterone 50mg/5mg/25mg per gram of cream, apply 1 pump (0.5g) topically to rotating sites 5 out of 7 days per week. 45g total (90 days), 0.5g blue pump. levothyroxine [Synthroid] 137 mcg tablet 137 mcg PO DAILY Qty: 90 1RF (DME) Disabled Parking Permit See Rx Instructions .ROUTE .MEDSUPPLY Qty: 1 0RF Rx Instructions: I find this person to be disabled Paxlovid 300 mg (150 mg x 2)-100 mg tablets,dose pack See Rx Instructions .ROUTE .COMPLEX Qty: 30 0RF Rx Instructions: take TWO 150 mg tablets of nirmatrelvir with ONE 100 mg tablet of ritonavir twice daily for 5 days oxycodone-acetaminophen [Endocet] 5-325 mg tablet 1 tab PO Q8H PRN (Reason: pain) Qty: 10 0RF amlodipine 5 mg tablet 5 mg PO QPM multivitamin Tablet 1 tab PO DAILY ascorbic acid (vitamin C) [Vitamin C] 1,000 mg Tablet 1,000 mg PO DAILY cholecalciferol (vitamin D3) [Vitamin D3] 10 mcg (400 unit) Capsule 10 mcg PO DAILY bacitracin 500 unit/gram ointment 1 applic topical Q8H Qty: 14 0RF prednisone 20 mg tablet 20 mg PO DAILY Qty: 5 0RF famotidine [Pepcid] 20 mg tablet 20 mg PO BID Qty: 10 0RF Referrals: Biju Garcia MD [Primary Care Provider, Family Practice]
--- NOTE | 2025-05-20 10:43 | DI.RAD.S_ITS ---
PROCEDURE: XR PELVIS 1-2V INDICATIONS: trauma / L hip pain TECHNIQUE: 1 view(s) of the pelvis acquired. COMPARISON: None. FINDINGS: Bones: No acute fractures or dislocations. Chronic appearing left obturator ring fracture healed with mild deformity. No suspicious bony lesions. Soft tissues: Visualized bowel gas pattern is normal. No suspicious soft tissue calcifications. IMPRESSION: No acute bony abnormality. Dictated by: Bharati Hopson MD, PhD on 05/20/2025 at 11:20 Approved by: Bharati Hopson MD, PhD on 05/20/2025 at 11:21
--- NOTE | 2025-05-20 10:43 | DI.RAD.S_ITS ---
PROCEDURE: XR CHEST 1V INDICATIONS: trauma / L hip pain TECHNIQUE: One view of the chest was acquired. COMPARISON: [facility], , XR CHEST 1V, 04/25/2024, 16:10. FINDINGS: Surgical changes and devices: Partially visualized left shoulder reverse arthroplasty. Lungs and pleura: Lungs are clear. No pleural effusions or pneumothorax. Mediastinum: Mediastinal contours appear normal. Heart size is normal. Bones and chest wall: No suspicious bony lesions. Overlying soft tissues appear unremarkable. IMPRESSION: No acute cardiopulmonary abnormality is seen. Dictated by: Bharati Hopson MD, PhD on 05/20/2025 at 11:21 Approved by: Bharati Hopson MD, PhD on 05/20/2025 at 11:22
--- NOTE | 2025-05-20 10:50 | EKG_ITS ---
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
--- NOTE | 2025-05-20 10:51 | DI.RAD.S_ITS ---
PROCEDURE: XR ELBOW LT MIN 3V INDICATIONS: L elbow TECHNIQUE: 3 views of the elbow were acquired. COMPARISON: None. FINDINGS: Bones: No fractures or dislocations. No suspicious bony lesions. Soft tissues: No elbow joint effusion. No suspicious soft tissue calcifications. IMPRESSION: No acute bony abnormality or significant joint effusion. Dictated by: Bharati Hopson MD, PhD on 05/20/2025 at 11:22 Approved by: Bharati Hopson MD, PhD on 05/20/2025 at 11:23
[2025-05-20] MEDS: TET,DIPH,PERTUSS(ACELL),VAC/PF 0.5 ML SYRINGE IM (10:57)
[2025-05-20 10:58] LABS: Add Manual Diff / Slide Review NO; Hematocrit 46.1 % (36-46); Hemoglobin 15.7 g/dL (12.0-16.0); Lymphocytes Absolute Auto 600 /uL (1100-4500); Mean Corpuscular HGB Conc 34.1 % (30-36); Mean Corpuscular Hemoglobin 31.6 PG (26-34); Mean Corpuscular Volume 92.4 fL (80-100); Platelet Count 305 X10^3/uL (150-400)
[2025-05-20] MEDS: LACTATED RINGERS 1,000 ML 1000 ML IV (10:58)
[2025-05-20 11:04] LABS: Alanine Aminotransferase 32 IU/L (<35); Albumin 5.6 g/dL (3.5-5.0); Albumin Globulin Ratio 1.3 (1.0-2.8); Alkaline Phosphatase 91 U/L (38-126); Blood Urea Nitrogen 8 mg/dL (7-17); Calcium 9.5 mg/dL (8.4-10.2); Carbon Dioxide 23 mmol/L (22-32); Chloride 94 mmol/L (98-107); Estimated Glomerular Filt Rate > 60 mL/min (>60); Globulin 4.2 g/dL (1.7-4.1); Glucose 179 mg/dL (70-99); Lipase 60 U/L (23-300); Magnesium 1.8 mg/dL (1.6-2.3); Potassium 4.2 mmol/L (3.4-5.1); Sodium 132 mmol/L (137-145); Total Protein 9.8 g/dL (6.3-8.2)
[2025-05-20 11:05] LABS: HEMOLYSIS 78 (0-50)
[2025-05-20 11:16] LABS: NT-proBNP (BNP-Adult 18+) 576 pg/mL (<450); Troponin I < 0.012 ng/mL (0.01-0.034)
[2025-05-20] MEDS: BACITRACIN OINT 0.9 GM PCKT 1 APPLIC TOP (12:09)
--- NOTE | 2025-05-20 12:18 | DI.CT.S_ITS ---
PROCEDURE: CT PEL WO CON INDICATIONS: L hip pain TECHNIQUE: Noncontrast 3 mm axial sections acquired through the bony pelvis, with coronal and sagittal reformatting. COMPARISON: None. FINDINGS: Image quality: Excellent. Bones: There is a left sacral insufficiency fracture. There is a fracture involving the anterior column of the left acetabulum. There is a fracture involving the left inferior pubic ramus. There is a left pubic symphysis fracture. No left hip fracture. Soft tissues: Moderate rectal fecal impaction with associated stercoral colitis. Sigmoid diverticulosis. Uterus is surgically absent. IMPRESSION: 1. There are multiple left-sided fractures, involving the anterior column of the left acetabulum, the left pubic symphysis, and the left inferior pubic ramus. Additionally, there is a left-sided sacral insufficiency fracture. 2. No hip fracture or dislocation. 3. Moderate rectal fecal impaction with associated stercoral colitis. Dictated by: Efren Mariee M.D. on 05/20/2025 at 13:27 Approved by: Efren Mariee M.D. on 05/20/2025 at 13:30
[2025-05-20 12:53] LABS: Lactate (Lactic Acid) 2.3 mmol/L (0.7-2.1)
[2025-05-20] MEDS: PANTOPRAZOLE 40 MG VIAL IV (12:55)
[2025-05-20 12:59] LABS: Culture Indicated Urine Cult Not Indicated
[2025-05-20 14:13] LABS: Reflexed Lactate in 2 Hours Y
[2025-05-20 14:29] LABS: Lactate 2HR (Lactic Acid Rflx) 1.5 mmol/L (0.7-2.1)
[2025-05-20 14:41] LABS: Troponin I < 0.012 ng/mL (0.01-0.034)
--- NOTE | 2025-05-20 15:24 | ED_ITS ---
HPI - Fall General Chief Complaint: Fall Stated Complaint: Slid off couch last nigh, 0 thinners Time Seen by Provider: 05/20/25 10:20 Source: patient and EMS Mode of arrival: EMS History of Present Illness HPI Narrative: 79-year-old female presents with fall yesterday after sliding off couch unable to get up this morning found incontinent of urine, weak, unable to bear weight, brought in by EMS for further evaluation. Patient denies headache, dizziness, loss of consciousness, chest pain, shortness of breath, back pain, abdominal pain, bowel or bladder incontinence, nausea, vomiting, diarrhea, leg pain or leg swelling. She reports left hip pain otherwise 14 point review of system is negative. Related Data Home Medications ?Medication ?Instructions ?Recorded ?Confirmed amlodipine 5 mg tablet 5 mg PO QPM 01/16/19 5 ascorbic acid (vitamin C) 1,000 mg 1,000 mg PO DAILY 0 01/16/19 05/20/25 tablet (Vitamin C) cholecalciferol (vitamin D3) 10 10 mcg PO DAILY 05/20/25 mcg (400 unit) capsule (Vitamin D3) multivitamin 1 tab PO DAILY 01/16/1904/27 Previous Rx's ?Medication ?Instructions ?Recorded fluocinonide 0.05 % topical cream 1 applic topical BID PRN rash #30 07/09/24 grams albuterol sulfate 90 mcg/actuation 1 puff inhalation Q 4-6H PRN 08/14/24 aerosol inhaler Shortness Of Breath #8.5 gra ms DHEA, TEST, PROG See Rx Instructions .Route 0 11/18/24 .COMPLEX #45 grams bacitracin 500 unit/gram topical 1 applic topical Q8H #14 grams 12/23/24 ointment famotidine 20 mg tablet (Pepcid) 20 mg PO BID #10 tabs 12/23/24 Synthroid 137 mcg tablet 137 mcg PO DAILY #90 tabs (levothyroxine) Disabled Parking Permit #1 ea 02/05/25 Allergies Allergy/AdvReac Type Severity Reaction Status Date / Time abaloparatide (From Tymlos) AdvReac Severe It made Verified 05/20/25 10:46 me feel really bad, aches, pains epinephrine (EPINEPHRINE) AdvReac Severe Flushed, Verified 05/20/25 10:46 SOB [id number]-[id number] Reductase AdvReac Severe Heart Verified 05/20/25 10:46 Inhibitor ([id number] attack REDUCTASE INHIBITOR) symptoms tetracycline (TETRACYCLINE) AdvReac Severe Flushed, Verified 05/20/25 10:46 SOB ciprofloxacin (From CIPRO) AdvReac Intermediate Fushed, SOB Verified 05/20/25 10:46 [place] AdvReac Unknown Pt does Uncoded 05/20/25 10:46 not recall reaction Review of Systems Review of Systems ROS Unobtainable: All systems reviewed & are unremarkable except as noted in HPI and below Patient History Medical History (Updated 05/20/25 @ 18:14 by Biju Garcia MD) Primary osteoarthritis of both knees Environmental allergies Anxiety and depression Easy bruisability Skin cancer Arthritis Osteopenia Osteoarthritis Osteoporosis GERD (gastroesophageal reflux disease) HTN (hypertension) HLD (hyperlipidemia) Tinnitus Hypothyroid Surgical History Hx of vein stripping History of surgery H/O left wrist surgery (~2012) H/O right wrist surgery (~2009) History of right knee joint replacement History of left knee replacement History of surgery Hx of oophorectomy History of hysterectomy Hx of appendectomy History of tonsillectomy and adenoidectomy Hx of bilateral cataract extraction History of bilateral knee replacement Social History household members: none Smoking Status: Never smoker alcohol intake: current Smoking Status: Never smoker alcohol intake frequency: 0-2 drinks per day Alcohol type: wine Exam Narrative Exam Narrative: GENERAL: [79] year old patient appears stated age. Well-developed patient, in mild distress. HEAD: Atraumatic. Normocephalic. EYES: Pupils equal round and reactive. Extraocular motions intact. No scleral icterus. No injection or drainage. ENT: Nose without bleeding, purulent drainage. Throat without erythema, tonsillar hypertrophy or exudate. Airway patent. NECK: Trachea midline. Non tender CARDIOVASCULAR: Regular rate and rhythm without murmurs, gallops, or rubs. RESPIRATORY: Clear to auscultation. Breath sounds equal bilaterally. No wheezes, rales, or rhonchi. GASTROINTESTINAL: Abdomen soft, non-tender, nondistended. EXTREMITIES: L hip TTP but no obvious deformity on exam motor sensory intact +2DP +2 PT cap refill less than 2 seconds. BACK: Nontender without deformity or crepitance. No flank tenderness. NEURO: AOx3. GCS 15 focal neuro exam SKIN: No rash or erythema of visible areas Initial Vital Signs Initial Vital Signs: Vital Signs Pulse Rate 90 05/20/25 10:24 Pulse Oximetry 98 05/20/25 10:24 Procedures Laceration Repair Laceration 1: Time of procedure: 15:36 Side (If applicable): left Size (cm): 2.0 Description: linear Depth: simple, single layer Local Anesthetic: lidocaine 2% Amount of anesthesia used (mL): 3 Pre-repair: irrigated extensively and deep structures intact Skin layer closed with: nylon Skin layer suture size: 4-0 Number of sutures: 5 Technique: simple, interrupted Course Orders Ordered: Acetaminophen (Acetaminophen 325 Mg Tablet) 650 mg PO Q6H PRN PRN Reason: Fever/Mild Pain (1-3) Hydrocodone Bitart/Acetaminophen (Hydrocodone/Acet 5/325 Tablet) 1 tab PO Q4H PRN PRN Reason: Pain, Moderate (4-6) Hydrocodone Bitart/Acetaminophen (Hydrocodone/Acet 5/325 Tablet) 2 tab PO Q4H PRN PRN Reason: Pain, Severe (7-10) Albuterol (Albuterol 2.5 Mg/3 Ml Neb (Adult)) 2.5 mg INH RTQ2HR PRN PRN Reason: shortness of breath/wheezing Albuterol (Albuterol 2.5 Mg/3 Ml Neb (Adult)) 2.5 mg INH [id number] PRN PRN Reason: home medication dose Amlodipine Besylate (Amlodipine 5 Mg Tablet) 5 mg PO BEDTIME [facility] Bisacodyl (Bisacodyl 10 Mg Supp) 10 mg VT DAILY PRN PRN Reason: Constipation Docusate Sodium (Docusate 100 Mg Capsule) 100 mg PO BID [facility] Last Admin: 05/20/25 21:02 Dose: 100 mg Documented By: ADAM Enoxaparin Sodium (Enoxaparin 40 Mg/0.4 Ml Syringe) 40 mg SUBCUT DAILY [facility] Famotidine (Famotidine 20 Mg Tablet) 20 mg PO BID [facility] Last Admin: 05/20/25 21:02 Dose: 20 mg Documented By: ADAM Hydromorphone HCl (Hydromorphone Hcl 0.5 Mg/0.5 Ml Syringe) 0.5 mg IV Q2H PRN PRN Reason: Pain, Severe (7-10) Ibuprofen (Ibuprofen 600 Mg Tablet) 600 mg PO Q6H [facility] Last Admin: 05/21/25 06:38 Dose: Not Given Documented By: Admin: 05/20/25 21:01 Dose: 600 mg Documented By: Admin: 05/20/25 19:00 Dose: Not Given Documented By: ARMANI Levothyroxine Sodium (Levothyroxine 137 Mcg Tablet) 137 mcg PO 0600 [facility] Last Admin: 05/21/25 05:56 Dose: 137 mcg Documented By: ADAM Magnesium Hydroxide (Magnesium Hydroxide 30 Ml Udc) 30 ml PO DAILY PRN PRN Reason: Constipation Naloxone HCl (Naloxone 0.4 Mg/Ml Vial) 0.2 mg IV Q2MIN PRN PRN Reason: Opiate Reversal Ondansetron HCl (Ondansetron 4 Mg Odt) 4 mg PO Q8HR PRN PRN Reason: Nausea And Vomiting Discontinued Medications Hydrocodone Bitart/Acetaminophen (Hydrocodone/Acet 5/325 Tablet) 1 tab PO NOW ONE Stop: 05/20/25 12:19 Last Admin: 05/20/25 12:24 Dose: 1 tab Documented By: JOSE LUIS Albuterol (Albuterol 2.5 Mg/3 Ml Neb (Adult)) 2.5 mg INH [id number] [facility] Last Admin: 05/20/25 21:03 Dose: Not Given Documented By: ADAM Bacitracin (Bacitracin Oint 0.9 Gm Pckt) 1 applic TOP NOW ONE Stop: 05/20/25 12:08 Last Admin: 05/20/25 12:09 Dose: 1 applic Documented By: JOSE LUIS Diphtheria/Tetanus/Acell Pertussis (Tet,Diph,Pertuss(Acell),Vac/Pf 0.5 Ml Syringe) 0.5 ml IM .ONCE ONE Stop: 05/20/25 10:45 Last Admin: 05/20/25 10:57 Dose: 0.5 ml Documented By: JOSE LUIS Lactated Ringer's (Lactated Ringers) 1,000 mls @ 1,000 mls/hr IV BOLUS ONE Stop: 05/20/25 11:43 Last Infusion: 05/20/25 11:55 Dose: Infused Documented By: JOSE LUIS Admin: 05/20/25 10:58 Dose: 1,000 mls/hr Documented By: JOSE LUIS Pantoprazole Sodium (Pantoprazole 40 Mg Vial) 40 mg IV NOW ONE Stop: 05/20/25 12:53 Last Admin: 05/20/25 12:55 Dose: 40 mg Documented By: JOSE LUIS Vital Signs Vital signs: Vital Signs - 8 hr 05/20/25 10:24 05/20/25 10:29 05/20/25 10:29 Temperature Pulse Rate 90 95 H Pulse Rate [Left Posterior Tibial] Respiratory Rate Blood Pressure 141/83 H Pulse Oximetry 98 97 Oxygen Delivery Method 05/20/25 10:40 05/20/25 10:41 05/20/25 10:41 Temperature Pulse Rate 92 H 95 H Pulse Rate [Left Posterior Tibial] Respiratory Rate Blood Pressure 137/82 Pulse Oximetry 95 96 Oxygen Delivery Method 05/20/25 10:47 05/20/25 11:00 05/20/25 11:00 Temperature 97.5 F L Pulse Rate 92 H 98 H Pulse Rate [Left Posterior Tibial] Respiratory Rate 18 Blood Pressure 141/83 H 174/79 H Pulse Oximetry 99 96 Oxygen Delivery Method Room Air 05/20/25 11:30 05/20/25 11:31 05/20/25 11:31 Temperature Pulse Rate 98 H 94 H Pulse Rate [Left Posterior Tibial] Respiratory Rate Blood Pressure 193/91 H Pulse Oximetry 94 96 Oxygen Delivery Method 05/20/25 12:00 05/20/25 12:58 05/20/25 12:59 Temperature Pulse Rate 95 H 92 H Pulse Rate [Left Posterior Tibial] Respiratory Rate Blood Pressure 147/70 H Pulse Oximetry 96 92 Oxygen Delivery Method 05/20/25 12:59 05/20/25 13:00 05/20/25 13:00 Temperature Pulse Rate 93 H 94 H Pulse Rate [Left Posterior Tibial] Respiratory Rate Blood Pressure 138/66 Pulse Oximetry 92 91 Oxygen Delivery Method 05/20/25 13:29 05/20/25 13:30 05/20/25 13:42 Temperature Pulse Rate 97 H 96 H Pulse Rate [Left Posterior Tibial] Respiratory Rate Blood Pressure 140/65 Pulse Oximetry 92 92 Oxygen Delivery Method 05/20/25 13:54 05/20/25 14:00 05/20/25 14:30 Temperature Pulse Rate Pulse Rate [Left Posterior Tibial] Respiratory Rate 16 Blood Pressure 131/60 102/56 L Pulse Oximetry 91 Oxygen Delivery Method Room Air 05/20/25 15:00 05/20/25 15:13 Temperature Pulse Rate Pulse Rate [Left Posterior Tibial] 70 Respiratory Rate 18 Blood Pressure 117/56 L Pulse Oximetry Oxygen Delivery Method MDM - Fall Lab Data 05/21/25 05:35 05/21/25 05:35 Labs: Lab Results 05/20/25 05/20/25 05/20/25 Range/Units 10:20 11:10 12:25 WBC 15.1 H (4.5-11.0) X10^3/uL RBC 4.99 (4.0-5.2) X10^6/uL Hgb 15.7 (12.0-16.0) g/dL Hct 46.1 H (36-46) % MCV 92.4 (80-100) fL MCH 31.6 (26-34) PG MCHC 34.1 (30-36) % RDW 12.3 (11.6-14.8) % Plt Count 305 (150-400) X10^3/uL Neut % (Auto) 89.7 H (50-75) % Lymph % (Auto) 3.7 L (25-40) % [place] % (Auto) 6.5 (3-14) % Eos % (Auto) 0.0 L (2-4) % Baso % (Auto) 0.1 (0-2) % Neut # (Auto) 30583 H (0943-7824) /uL Lymph # (Auto) 600 L (8428-8537) /uL [place] # (Auto) 1000 H (0-900) /uL Eos # (Auto) 0 (0-450) /uL Baso # (Auto) 0 (0-100) /uL Sodium 132 L (137-145) mmol/L Potassium 4.2 (3.4-5.1) mmol/L Chloride 94 L (98-107) mmol/L Carbon Dioxide 23 (22-32) mmol/L BUN 8 (7-17) mg/dL Creatinine 0.47 L (0.52-1.04) mg/dL Estimated GFR > 60 (>60) mL/min BUN/Creatinine Ratio 17.0 (6-22) Glucose 179 H (70-99) mg/dL Lactate 2.3 H (0.7-2.1) mmol/L Calcium 9.5 (8.4-10.2) mg/dL Magnesium 1.8 (1.6-2.3) mg/dL Total Bilirubin 1.3 (0.2-1.3) mg/dL AST 54 H (14-36) IU/L ALT 32 (<35) IU/L Alkaline Phosphatase 91 (38-126) U/L Troponin I < 0.012 (0.01-0.034) ng/mL NT-Pro-B Natriuret Pep 576 H (<450) pg/mL Total Protein 9.8 H (6.3-8.2) g/dL Albumin 5.6 H (3.5-5.0) g/dL Globulin 4.2 H (1.7-4.1) g/dL Albumin/Globulin Ratio 1.3 (1.0-2.8) Lipase 60 (23-300) U/L Urine RBC 0-1/hpf (0-5/HPF) Urine WBC 0-1/hpf (0-5/HPF) Ur Squamous Epith Cells 0-1 /hpf (0-5/HPF) Urine Bacteria Occasional (0-1) (None) Ur Culture Indicated? Cult not indicated Vol Urine Centrifuged 10ml (spun) 05/20/25 Range/Units 14:05 WBC (4.5-11.0) X10^3/uL RBC (4.0-5.2) X10^6/uL Hgb (12.0-16.0) g/dL Hct (36-46) % MCV (80-100) fL MCH (26-34) PG MCHC (30-36) % RDW (11.6-14.8) % Plt Count (150-400) X10^3/uL Neut % (Auto) (50-75) % Lymph % (Auto) (25-40) % [place] % (Auto) (3-14) % Eos % (Auto) (2-4) % Baso % (Auto) (0-2) % Neut # (Auto) (1121-6791) /uL Lymph # (Auto) (3887-8032) /uL [place] # (Auto) (0-900) /uL Eos # (Auto) (0-450) /uL Baso # (Auto) (0-100) /uL Sodium (137-145) mmol/L Potassium (3.4-5.1) mmol/L Chloride (98-107) mmol/L Carbon Dioxide (22-32) mmol/L BUN (7-17) mg/dL Creatinine (0.52-1.04) mg/dL Estimated GFR (>60) mL/min BUN/Creatinine Ratio (6-22) Glucose (70-99) mg/dL Lactate 1.5 (0.7-2.1) mmol/L Calcium (8.4-10.2) mg/dL Magnesium (1.6-2.3) mg/dL Total Bilirubin (0.2-1.3) mg/dL AST (14-36) IU/L ALT (<35) IU/L Alkaline Phosphatase (38-126) U/L Troponin I < 0.012 (0.01-0.034) ng/mL NT-Pro-B Natriuret Pep (<450) pg/mL Total Protein (6.3-8.2) g/dL Albumin (3.5-5.0) g/dL Globulin (1.7-4.1) g/dL Albumin/Globulin Ratio (1.0-2.8) Lipase (23-300) U/L Urine RBC (0-5/HPF) Urine WBC (0-5/HPF) Ur Squamous Epith Cells (0-5/HPF) Urine Bacteria (None) Ur Culture Indicated? Vol Urine Centrifuged Urine Dip Bedside Urine Glucose Negative Bedside Urine Bilirubin - Negative Bedside Urine Ketone +++ 80 Urine Specific [place] 1.010 Bedside Urine Occult Blood ++ Bedside Urine pH 7.0 Bedside Urine Protein +/- 15 Bedside Urine Urobilinogen - Negative Bedside Urine Nitrite - Negative Bedside Urine Leukocytes - Negative Esterase ECG Data Interpretation: NSR HR 95 VT 204 QRS [address]-t wave change Unchanged from 01/13/25 MDM Narrative Medical decision making narrative: All lab work, vital signs, nurse triage note, medication list, previous ER visits, and all imaging studies reviewed. WBC 15.1 hemoglobin 15.7 platelets 305 sodium 132 potassium 4.2 chloride 94 CO2 23 BUN 8 creatinine 0.47 glucose 179 lactic acid 2.3 repeat 1.5. Magnesium 1.8 2 sets troponin less than 0.012. BNP 576 lipase 60. UA showed no acute process. Pelvis CT showed multiple left- sided fractures involving the anterior column of the left acetabulum left pubic symphysis left inferior pubic ramus. Additionally there is left-sided sacral insufficiency fracture. No hip fracture or dislocation. Moderate rectal fecal impaction with associated sterile call colitis. Patient given 1 L LR and [place] here. Elbow and chest x-ray showed no acute process. Five stitches to left elbow placed using 4-0 nylon single interrupted. Case discussed with Dr. Lazo orthopedic doctor on-call no surgery, pain control and physical therapy. Differential diagnosis fracture dislocation contusion pneumothorax UTI sepsis electrolyte derangement. Case discussed with who has graciously accepted the patient for inpatient admission. Discharge Plan Departure Patient Disposition: Admitted As Inpatient Clinical Impression: Elbow laceration Acetabular fracture Qualifiers: Encounter type: initial encounter Sublocation of acetabulum: anterior column F racture type: closed Fracture alignment: nondisplaced Laterality: left Qualified Code(s): S32.435A - Nondisplaced fracture of anterior column [iliopubic] of left acetabulum, initial encounter for closed fracture Closed fracture of pubic ramus Qualifiers: Encounter type: initial encounter Laterality: left Qualified Code(s): S32.592A - Other specified fracture of left pubis, initial encounter for closed fracture Admit Date/Time: 05/20/25 15:32 Admit Provider: Biju Garcia
--- NOTE | 2025-05-20 16:05 | PC.NURSE ---
Purewick placed throughout ED visit, successfully eliminated 1450 ML urine via Purewick. Full bed change and new brief placed in ED at 1600, AC RN aware of fresh brief and bedding. Pt on BearHugger throughout ED visit, pt was chilled due to being found down this morning on her floor for unknown length of time. Pt reports being warm, Bearhugger removed at 1600 and warm blankets placed on pt. Pt slid/slipped off slippery leather sofa and slid to the floor. Denies hitting her head, states she was too weak to get herself off the floor. Surinder heard pt yelling for help this morning and called 911. Sister states pt has slight memory issues. Patient denies pain unless she is being moved/slid for brief change and transferring. Multiple fx, see diagnostic imaging reports. CMS intact. Patent 18g in L-AC.
--- NOTE | 2025-05-20 16:53 | PC.NURSE ---
Pt arrived from ED at 1630, transferred to bed with a slider board. A&Ox4, VSS on RA. C/o significant pain w/movement, otherwise pain in minimal. Lung sounds CTA, bowel sounds present, CMS+ bilaterally throughout. Pt oriented to room and call light. Bed in low position, call light within reach, bed alarm activated.
--- NOTE | 2025-05-20 17:45 | PM.HP.IH.1 ---
History of Present Illness History of Present Illness Date Patient Seen: 05/20/25 Chief complaint: Slid off couch last nigh, 0 thinners Narrative: 79-year-old female with hypertension, hyperlipidemia, hypothyroidism. Patient brought in by EMS after being found on the ground by her mail man. Apparently she slid off the couch and was unable to get up on her own. Noted to have soiled and urinated on self. Denies fever, chills, nausea/vomiting, headache, vision change, LOC. ER evaluation notable for WBC 15.1 with left shift, glucose 179, AST 54, mildly elevated lactate 2.3 which normalized on repeat. Remainder of CBC, CMP, lipase without significant derangements, troponin negative x2. UA with 3+ ketones, no evidence of infection. XR hip negative for fracture, however patient was unable to ambulate. Subsequent CT pelvis showed multiple left-sided fractures involving the anterior column of the left acetabulum, left pubic symphysis, left inferior pubic ramus. Additionally there is a left-sided sacral insufficiency fracture. No hip dislocation. Orthopedics consulted from ER and deemed nonsurgical, recommend pain control and physical therapy. [facility] Medical History (Updated 05/20/25 @ 18:14 by Biju Garcia MD) Primary osteoarthritis of both knees Environmental allergies Anxiety and depression Easy bruisability Skin cancer Arthritis Osteopenia Osteoarthritis Osteoporosis GERD (gastroesophageal reflux disease) HTN (hypertension) HLD (hyperlipidemia) Tinnitus Hypothyroid Surgical History Hx of vein stripping History of surgery H/O left wrist surgery (~2012) H/O right wrist surgery (~2009) History of right knee joint replacement History of left knee replacement History of surgery Hx of oophorectomy History of hysterectomy Hx of appendectomy History of tonsillectomy and adenoidectomy Hx of bilateral cataract extraction History of bilateral knee replacement Social History household members: none Smoking Status: Never smoker alcohol intake: current Meds Home Medications and Allergies Home Medications ?Medication ?Instructions ?Recorded ?Confirmed ?Type amlodipine 5 mg tablet 5 mg PO QPM 01/16/19 05/20/25 History ascorbic acid (vitamin C) 1,000 mg 1,000 mg PO DAILY 01/16/19 05/20/25 History tablet (Vitamin C) cholecalciferol (vitamin D3) 10 10 mcg PO DAILY 01/16/19 05/20/25 History mcg (400 unit) capsule (Vitamin D3) multivitamin 1 tab PO DAILY 01/16/19 05/20/25 History fluocinonide 0.05 % topical cream 1 applic topical BID PRN rash #30 07/09/24 05/20/25 Rx grams albuterol sulfate 90 mcg/actuation 1 puff inhalation Q4-6H PRN 08/14/24 05/20/25 Rx aerosol inhaler Shortness Of Breath #8.5 grams DHEA, TEST, PROG See Rx Instructions .Route 11/18/24 05/20/25 Rx .COMPLEX #45 grams bacitracin 500 unit/gram topical 1 applic topical Q8H #14 grams 12/23/24 05/20/25 Rx ointment famotidine 20 mg tablet (Pepcid) 20 mg PO BID #10 tabs 12/23/24 05/20/25 Rx Synthroid 137 mcg tablet 137 mcg PO DAILY #90 tabs 01/08/25 05/20/25 Rx (levothyroxine) Disabled Parking Permit #1 ea 02/05/25 05/20/25 Rx Allergies Allergy/AdvReac Type Severity Reaction Status Date / Time abaloparatide (From Tymlos) AdvReac Severe It made Verified 05/20/25 10:46 me feel really bad, aches, pains epinephrine (EPINEPHRINE) AdvReac Severe Flushed, Verified 05/20/25 10:46 SOB [id number] Reductase AdvReac Severe Heart Verified 05/20/25 10:46 Inhibitor ([id number] attack REDUCTASE INHIBITOR) symptoms tetracycline (TETRACYCLINE) AdvReac Severe Flushed, Verified 05/20/25 10:46 SOB ciprofloxacin (From CIPRO) AdvReac Intermediate Fushed, SOB Verified 05/20/25 10:46 [place] AdvReac Unknown Pt does Uncoded 05/20/25 10:46 not recall reaction Review of Systems Review of Systems ROS: Yes All systems reviewed with the patient and are negative except as otherwise documented Exam Vital Signs (past 8 hours): - 05/20/25 10:24 05/20/25 10:29 05/20/25 10:29 Temperature Pulse Rate 90 95 H Pulse Rate [Left Posterior Tibial] Pulse Rate [Left Radial] Respiratory Rate Blood Pressure 141/83 H Pulse Oximetry 98 97 Oxygen Delivery Method 05/20/25 10:40 05/20/25 10:41 05/20/25 10:41 Temperature Pulse Rate 92 H 95 H Pulse Rate [Left Posterior Tibial] Pulse Rate [Left Radial] Respiratory Rate Blood Pressure 137/82 Pulse Oximetry 95 96 Oxygen Delivery Method 05/20/25 10:47 05/20/25 11:00 05/20/25 11:00 Temperature 97.5 F L Pulse Rate 92 H 98 H Pulse Rate [Left Posterior Tibial] Pulse Rate [Left Radial] Respiratory Rate 18 Blood Pressure 141/83 H 174/79 H Pulse Oximetry 99 96 Oxygen Delivery Method Room Air 05/20/25 11:30 05/20/25 11:31 05/20/25 11:31 Temperature Pulse Rate 98 H 94 H Pulse Rate [Left Posterior Tibial] Pulse Rate [Left Radial] Respiratory Rate Blood Pressure 193/91 H Pulse Oximetry 94 96 Oxygen Delivery Method 05/20/25 12:00 05/20/25 12:00 05/20/25 12:58 Temperature Pulse Rate 95 H 92 H Pulse Rate [Left Posterior Tibial] Pulse Rate [Left Radial] 76 Respiratory Rate Blood Pressure Pulse Oximetry 96 92 Oxygen Delivery Method 05/20/25 12:59 05/20/25 12:59 05/20/25 13:00 Temperature Pulse Rate 93 H 94 H Pulse Rate [Left Posterior Tibial] Pulse Rate [Left Radial] Respiratory Rate Blood Pressure 147/70 H Pulse Oximetry 92 91 Oxygen Delivery Method 05/20/25 13:00 05/20/25 13:29 05/20/25 13:30 Temperature Pulse Rate 97 H Pulse Rate [Left Posterior Tibial] Pulse Rate [Left Radial] Respiratory Rate Blood Pressure 138/66 140/65 Pulse Oximetry 92 Oxygen Delivery Method 05/20/25 13:42 05/20/25 13:54 05/20/25 14:00 Temperature Pulse Rate 96 H Pulse Rate [Left Posterior Tibial] Pulse Rate [Left Radial] Respiratory Rate Blood Pressure 131/60 Pulse Oximetry 92 91 Oxygen Delivery Method 05/20/25 14:30 05/20/25 15:00 05/20/25 15:13 Temperature Pulse Rate Pulse Rate [Left Posterior Tibial] 70 Pulse Rate [Left Radial] Respiratory Rate 16 18 Blood Pressure 102/56 L 117/56 L Pulse Oximetry Oxygen Delivery Method Room Air 05/20/25 15:31 05/20/25 15:50 05/20/25 16:00 Temperature Pulse Rate 90 90 Pulse Rate [Left Posterior Tibial] Pulse Rate [Left Radial] Respiratory Rate Blood Pressure 165/87 H Pulse Oximetry 94 95 Oxygen Delivery Method 05/20/25 16:00 05/20/25 16:55 Temperature 98.3 F Pulse Rate 90 Pulse Rate [Left Posterior Tibial] Pulse Rate [Left Radial] Respiratory Rate 18 Blood Pressure 125/60 134/73 Pulse Oximetry 93 Oxygen Delivery Method Oxygen Delivery Method Room Air Narrative Exam Narrative: General: Pleasant, NAD HEENT: NC/AT, EOMI, moist membranes CV: RRR, normal S1-S2, no m/g/r Resp: CTAB, comfortable WOB Abd: Soft, NTND, +BS Ext: Left hip TTP without obvious deformity, no edema, DP 2+ Skin: No rash or lesions noted Neuro: A&O x3, no focal deficits Objective Imaging CT Pelvis: Radiologist's impression: CT PEL WO CON FINDINGS: Image quality: Excellent. Bones: There is a left sacral insufficiency fracture. There is a fracture involving the anterior column of the left acetabulum. There is a fracture involving the left inferior pubic ramus. There is a left pubic symphysis fracture. No left hip fracture. Soft tissues: Moderate rectal fecal impaction with associated stercoral colitis. Sigmoid diverticulosis. Uterus is surgically absent. IMPRESSION: 1. There are multiple left-sided fractures, involving the anterior column of the left acetabulum, the left pubic symphysis, and the left inferior pubic ramus. Additionally, there is a left-sided sacral insufficiency fracture. 2. No hip fracture or dislocation. 3. Moderate rectal fecal impaction with associated stercoral colitis. Dictated by: Efren Mariee M.D. on 05/20/2025 at 13:27 Approved by: Efren Mariee M.D. on 05/20/2025 at 13:30 Labs 05/20/25 10:20 05/20/25 10:20 Labs: Laboratory Results - last 24 hr 05/20/25 05/20/25 05/20/25 10:20 11:10 12:25 WBC 15.1 H RBC 4.99 Hgb 15.7 Hct 46.1 H MCV 92.4 MCH 31.6 MCHC 34.1 RDW 12.3 Plt Count 305 Neut % (Auto) 89.7 H Lymph % (Auto) 3.7 L [place] % (Auto) 6.5 Eos % (Auto) 0.0 L Baso % (Auto) 0.1 Neut # (Auto) 25993 H Lymph # (Auto) 600 L [place] # (Auto) 1000 H Eos # (Auto) 0 Baso # (Auto) 0 Sodium 132 L Potassium 4.2 Chloride 94 L Carbon Dioxide 23 BUN 8 Creatinine 0.47 L Estimated GFR > 60 BUN/Creatinine Ratio 17.0 Glucose 179 H Lactate 2.3 H Calcium 9.5 Magnesium 1.8 Total Bilirubin 1.3 AST 54 H ALT 32 Alkaline Phosphatase 91 Troponin I < 0.012 NT-Pro-B Natriuret Pep 576 H Total Protein 9.8 H Albumin 5.6 H Globulin 4.2 H Albumin/Globulin Ratio 1.3 Lipase 60 Urine RBC 0-1/hpf Urine WBC 0-1/hpf Ur Squamous Epith Cells 0-1 /hpf Urine Bacteria Occasional (0-1) Ur Culture Indicated? Cult not indicated Vol Urine Centrifuged 10ml (spun) 05/20/25 14:05 WBC RBC Hgb Hct MCV MCH MCHC RDW Plt Count Neut % (Auto) Lymph % (Auto) [place] % (Auto) Eos % (Auto) Baso % (Auto) Neut # (Auto) Lymph # (Auto) [place] # (Auto) Eos # (Auto) Baso # (Auto) Sodium Potassium Chloride Carbon Dioxide BUN Creatinine Estimated GFR BUN/Creatinine Ratio Glucose Lactate 1.5 Calcium Magnesium Total Bilirubin AST ALT Alkaline Phosphatase Troponin I < 0.012 NT-Pro-B Natriuret Pep Total Protein Albumin Globulin Albumin/Globulin Ratio Lipase Urine RBC Urine WBC Ur Squamous Epith Cells Urine Bacteria Ur Culture Indicated? Vol Urine Centrifuged Assessment & Plan Assessment and plan (1) Acetabular fracture: Qualifiers: Encounter type: initial encounter Fracture alignment: nondisplaced Fracture type: closed Laterality: left Sublocation of acetabulum: anterior column Qualified Code(s): S32.435A - Nondisplaced fracture of anterior column [iliopubic] of left acetabulum, initial encounter for closed fracture Status: Acute (2) Closed fracture of pubic ramus: Qualifiers: Encounter type: initial encounter Laterality: left Qualified Code(s): S32.592A - Other specified fracture of left pubis, initial encounter for closed fracture Status: Acute (3) Hypothyroid: Problem details: 08/02/2023: TSH 0.09, FT4 1.77 Qualifiers: Hypothyroidism type: unspecified Qualified Code(s): E03.9 - Hypothyroidism, unspecified Status: Acute (4) HTN (hypertension): Qualifiers: Hypertension type: primary hypertension Qualified Code(s): I10 - Essential (primary) hypertension Status: Acute (5) Fecal impaction: Status: Acute (6) Stercoral colitis: Status: Acute Assessment & Plan narrative: 79-year-old female with hypertension, hyperlipidemia, hypothyroidism, GERD admitted for complex left pelvic fracture. #complex left pelvic fracture Involving the anterior column of the left acetabulum, the left pubic symphysis, and the left inferior pubic ramus as well as a left-sided sacral insufficiency fracture. Orthopedics consulted and recommend nonoperative approach with pain management and physical therapy. Likely will need SNF on discharge. -schedule ibuprofen, acetaminophen PRN -norco pain scale -bowel regimen -zofran for nausea -pt consult -lives alone, likely will need discharge to snf for additional recovery #hypothyroid -home levothyroxine 137 mcg #hypertension -home amlodipine 5 mg #fecal impaction #stercoral colitis -stool softener, enema PRN Dispo: acute care Diet: regular DVT ppx: lovenox Code: LIMITED (no CPR or intubation) PCP: Jose MDM: Temitope Motta (sister, ) Time-Based Coding :: 35 minutes spent with patient and on the chart (including review of chart, obtaining history, exam, reviewing outside data, placing orders, documenting exam and treatment plan, and counseling patient) on 05/20/2025. PROFEE Account Services Specialist Document charge(s): Yes Charge Codes Initial inpatient/observation care: [id number]
--- NOTE | 2025-05-20 19:17 | RT ---
Checked pt's chart she is Q4-Q6 Albuterol prn for SOB at home. Listening to pt breath sounds clear, 93% RA supine, 85 HR, 16 RR. Pt states she will call if treatment is needed
[2025-05-20] MEDS: IBUPROFEN 600 MG TABLET PO (21:01)
[2025-05-20] MEDS: FAMOTIDINE 20 MG TABLET PO (21:02)
[2025-05-20] MEDS: DOCUSATE 100 MG CAPSULE PO (21:02)
[2025-05-21 02:20] VITALS: BP 136/63; PULSE 80; RESP 16; TEMP 36.3; O2SAT 96
[2025-05-21] MEDS: LEVOTHYROXINE 137 MCG TABLET PO (05:56)
[2025-05-21 06:04] LABS: Add Manual Diff / Slide Review NO; Hematocrit 36.1 % (36-46); Hemoglobin 12.5 g/dL (12.0-16.0); Lymphocytes Absolute Auto 1400 /uL (1100-4500); Mean Corpuscular HGB Conc 34.7 % (30-36); Mean Corpuscular Hemoglobin 31.9 PG (26-34); Mean Corpuscular Volume 92.1 fL (80-100); Platelet Count 215 X10^3/uL (150-400)
[2025-05-21 06:11] LABS: Alanine Aminotransferase 20 IU/L (<35); Albumin 4.0 g/dL (3.5-5.0); Albumin Globulin Ratio 1.4 (1.0-2.8); Alkaline Phosphatase 55 U/L (38-126); Blood Urea Nitrogen 20 mg/dL (7-17); Calcium 8.8 mg/dL (8.4-10.2); Carbon Dioxide 25 mmol/L (22-32); Chloride 96 mmol/L (98-107); Estimated Glomerular Filt Rate 45 mL/min (>60); Globulin 2.8 g/dL (1.7-4.1); Glucose 103 mg/dL (70-99); HEMOLYSIS < 15 (0-50); Potassium 3.6 mmol/L (3.4-5.1); Sodium 128 mmol/L (137-145); Total Protein 6.8 g/dL (6.3-8.2)
--- NOTE | 2025-05-21 07:52 | P.PN_ITS ---
Subjective Subjective Date Patient Seen: 05/21/25 Interval history: Feeling more soreness this morning. Looking forward to PT, believes getting up and moving around a bit will be helpful. Exam Vital Signs (past 8 hours): - 05/21/25 02:20 Temperature 97.3 F L Pulse Rate 80 Respiratory Rate 16 Blood Pressure 136/63 Pulse Oximetry 96 Oxygen Flow Rate 0 Oxygen Delivery Method Room Air Oxygen Flow Rate 0 Narrative Exam Narrative: General: Pleasant, NAD HEENT: NC/AT, EOMI, moist membranes CV: RRR, normal S1-S2, no m/g/r Resp: CTAB, comfortable WOB Abd: Soft, NTND, +BS Ext: Left hip TTP without obvious deformity, no edema, DP 2+ Skin: No rash or lesions noted Neuro: A&O x3, no focal deficits Objective Labs 05/21/25 05:35 05/21/25 05:35 Labs: Laboratory Results - last 24 hr 05/20/25 05/20/25 05/20/25 10:20 11:10 12:25 WBC 15.1 H RBC 4.99 Hgb 15.7 Hct 46.1 H MCV 92.4 MCH 31.6 MCHC 34.1 RDW 12.3 Plt Count 305 Neut % (Auto) 89.7 H Lymph % (Auto) 3.7 L [place] % (Auto) 6.5 Eos % (Auto) 0.0 L Baso % (Auto) 0.1 Neut # (Auto) 07118 H Lymph # (Auto) 600 L [place] # (Auto) 1000 H Eos # (Auto) 0 Baso # (Auto) 0 Sodium 132 L Potassium 4.2 Chloride 94 L Carbon Dioxide 23 BUN 8 Creatinine 0.47 L Estimated GFR > 60 BUN/Creatinine Ratio 17.0 Glucose 179 H Lactate 2.3 H Calcium 9.5 Magnesium 1.8 Total Bilirubin 1.3 AST 54 H ALT 32 Alkaline Phosphatase 91 Troponin I < 0.012 NT-Pro-B Natriuret Pep 576 H Total Protein 9.8 H Albumin 5.6 H Globulin 4.2 H Albumin/Globulin Ratio 1.3 Lipase 60 Urine RBC 0-1/hpf Urine WBC 0-1/hpf Ur Squamous Epith Cells 0-1 /hpf Urine Bacteria Occasional (0-1) Ur Culture Indicated? Cult not indicated Vol Urine Centrifuged 10ml (spun) 05/20/25 05/21/25 14:05 05:35 WBC 7.7 RBC 3.92 L Hgb 12.5 Hct 36.1 MCV 92.1 MCH 31.9 MCHC 34.7 RDW 12.4 Plt Count 215 Neut % (Auto) 73.3 Lymph % (Auto) 17.6 L [place] % (Auto) 8.8 Eos % (Auto) 0.1 L Baso % (Auto) 0.2 Neut # (Auto) 5700 Lymph # (Auto) 1400 [place] # (Auto) 700 Eos # (Auto) 0 Baso # (Auto) 0 Sodium 128 L Potassium 3.6 Chloride 96 L Carbon Dioxide 25 BUN 20 H Creatinine 1.20 H Estimated GFR 45 L BUN/Creatinine Ratio 16.7 Glucose 103 H Lactate 1.5 Calcium 8.8 Magnesium Total Bilirubin 1.1 AST 31 ALT 20 Alkaline Phosphatase 55 Troponin I < 0.012 NT-Pro-B Natriuret Pep Total Protein 6.8 Albumin 4.0 Globulin 2.8 Albumin/Globulin Ratio 1.4 Lipase Urine RBC Urine WBC Ur Squamous Epith Cells Urine Bacteria Ur Culture Indicated? Vol Urine Centrifuged [facility] Medical History (Updated 05/20/25 @ 18:14 by Biju Garcia MD) Primary osteoarthritis of both knees Environmental allergies Anxiety and depression Easy bruisability Skin cancer Arthritis Osteopenia Osteoarthritis Osteoporosis GERD (gastroesophageal reflux disease) HTN (hypertension) HLD (hyperlipidemia) Tinnitus Hypothyroid Surgical History Hx of vein stripping History of surgery H/O left wrist surgery (~2012) H/O right wrist surgery (~2009) History of right knee joint replacement History of left knee replacement History of surgery Hx of oophorectomy History of hysterectomy Hx of appendectomy History of tonsillectomy and adenoidectomy Hx of bilateral cataract extraction History of bilateral knee replacement Social History household members: none Smoking Status: Never smoker alcohol intake: current Assessment & Plan Assessment and plan (1) Acetabular fracture: Qualifiers: Encounter type: initial encounter Fracture alignment: nondisplaced F racture type: closed Laterality: left Sublocation of acetabulum: anterior column Qualified Code(s): S32.435A - Nondisplaced fracture of anterior column [iliopubic] of left acetabulum, initial encounter for closed fracture Status: Acute (2) Closed fracture of pubic ramus: Qualifiers: Encounter type: initial encounter Laterality: left Qualified Code(s): S32.592A - Other specified fracture of left pubis, initial encounter for closed fracture Status: Acute (3) Hypothyroid: Problem details: 08/02/2023: TSH 0.09, FT4 1.77 Qualifiers: Hypothyroidism type: unspecified Qualified Code(s): E03.9 - Hypothyroidism, unspecified Status: Acute (4) HTN (hypertension): Qualifiers: Hypertension type: primary hypertension Qualified Code(s): I10 - Essential (primary) hypertension Status: Acute (5) Fecal impaction: Status: Acute (6) Stercoral colitis: Status: Acute Assessment & Plan narrative: 79-year-old female with hypertension, hyperlipidemia, hypothyroidism, GERD admitted for complex left pelvic fracture. #complex left pelvic fracture Involving the anterior column of the left acetabulum, the left pubic symphysis, and the left inferior pubic ramus as well as a left-sided sacral insufficiency fracture. Orthopedics consulted and recommend nonoperative approach with pain management and physical therapy. Likely will need SNF for additional recovery on discharge. -pt evaluation pending -schedule ibuprofen, acetaminophen PRN -norco pain scale -bowel regimen -zofran for nausea #hypothyroid -levothyroxine #hypertension -amlodipine #fecal impaction #stercoral colitis -stool softener, enema PRN Dispo: Likely to SNF for rehab once assessed by PT, as pt lives alone and will not be able to care for self in current state Diet: regular DVT ppx: lovenox Code: LIMITED (no CPR or intubation) PCP: Jose MDM: Temitope Motta (sister, ) Time-Based Coding :: 15 minutes spent with patient and on the chart (including review of chart, obtaining history, exam, reviewing outside data, placing orders, documenting exam and treatment plan, and counseling patient) on 05/21/2025. PROFEE [employer]er Document charge(s): Yes Charge Codes Subsequent inpatient/observation care: [id number]
[2025-05-21 08:00] VITALS: BP 135/66; PULSE 81; RESP 18; TEMP 36.8; O2SAT 96
[2025-05-21] MEDS: DOCUSATE 100 MG CAPSULE PO ×2 (09:21→20:40)
[2025-05-21] MEDS: FAMOTIDINE 20 MG TABLET PO (09:22)
[2025-05-21] MEDS: ENOXAPARIN 40 MG/0.4 ML SYRINGE SUBCUT (09:22)
--- NOTE | 2025-05-21 11:00 | PT.IIE ---
Current Diagnoses Hypothyroidism, unspecified (05/20/25) Essential (primary) hypertension (05/20/25) Other specified noninfective gastroenteritis and colitis (05/20/25) Fecal impaction (05/20/25) Nondisplaced fracture of anterior column [iliopubic] of left acetabulum, initial encounter for closed fracture (05/20/25) Other specified fracture of left pubis, initial encounter for closed fracture (05/20/25) Surgical History (Last Reviewed 01/14/25 @ 15:23 by Juanis Curtis PA-C) H/O left wrist surgery (~2012) H/O right wrist surgery (~2009) History of bilateral knee replacement History of hysterectomy History of left knee replacement History of right knee joint replacement History of surgery History of surgery History of tonsillectomy and adenoidectomy Hx of appendectomy Hx of bilateral cataract extraction Hx of oophorectomy Hx of vein stripping Medical History (Last Updated 05/02/25 @ 11:48 by Kenny Rodriguez MD) Anxiety and depression Arthritis Easy bruisability Environmental allergies GERD (gastroesophageal reflux disease) HLD (hyperlipidemia) HTN (hypertension) Hypothyroid Osteoarthritis Osteopenia Osteoporosis Primary osteoarthritis of both knees Skin cancer Tinnitus Physical Therapy Inpatient Evaluation/Re-Eval M1 PT IP Prior Functional Status Start: 05/21/25 13:00 Freq: NEEDED Status: Active Protocol: Document 05/21/25 11:00 DLM (Rec: 05/21/25 13:03 DLM Desktop) Medical Review Prior Functional Status Medical History Yes Reviewed Diet/Fluid Regular Consistency Communication reading glasses Mobility and Gait Independent without device. Hx of falls due to her dog. She walks dog daily for about 2 miles. Activities of Daily Independent. Drives Living and IADL's Social History Household Members none Living Arrangements House Number of Floors ( One Floor Floors) Number of Stairs To 2 steps with bilateral rails Enter/Railing? Home Environment Standard Height Toilet,Walk in Shower,Bidet Home Equipment Straight Cane,Shower Seat with Backrest,Grab Bars Near Toilet Employment Status Retired M2 PT-IP Current Condition Start: 05/21/25 13:00 Freq: NEEDED Status: Active Protocol: Document 05/21/25 11:00 DLM (Rec: 05/21/25 13:20 DLM Desktop) Physical Therapy Current Condition Current Condition Evaluation Date 05/21/25 Treatment Diagnosis Fall, left pelvic and acetabular fx, impaired gait Onset Date 05/20/25 M3 PT-IP Subjective Start: 05/21/25 13:00 Freq: NEEDED Status: Active Protocol: Document 05/21/25 11:00 DLM (Rec: 05/21/25 13:20 DLM Desktop) Subjective Physical Therapy Visit Type Type Initial Evaluation Visit Start Time 10:20 Visit Stop Time 11:00 Notes 40 min Number of BRAILLE AND TALKING BOOKS CLERK Visits 0 Physical Therapy Visit Comments Patient Comments She reports she has gotten a lot weaker since her fall with her time in bed. Patient Goals get well Therapy Pain Assessment Pain When Pain Assessed During Mobility Pain Present Pain Present Pain Reported Location left hip Intensity 10 Scale Used Numeric (0 - 10) Description Aching,Tender,With Movement Pain Management Modification of Treatment,Re-positioning,Timing of Techniques Activity with Medications M4 PT-IP Mobility and Gait Start: 05/21/25 13:00 Freq: NEEDED Status: Active Protocol: Document 05/21/25 11:00 DLM (Rec: 05/21/25 13:20 DLM Desktop) PT-Bed Mobility Assessment Supine to Sit Supine to Sit Moderate Assistance,Head of Bed Elevated,Bedrails Sit to Supine Sit to Supine Moderate Assistance,Bedrails Scooting Scooting to Edge of Minimal Assistance,Moderate Assistance Bed PT-Transfer Assessment Sit to and From Stand Sit to and from Minimal Assistance Stand Equipment Transfer Assistive Gait Belt,Front Wheeled Walker Device Transfers Transfer Destination Bedside Commode Transfer Technique Stand Pivot Transfer Ability Level of Assist Minimal Assistance,Use of Upper Extremities Comments Mobility Comments Pt light-headed with sitting up and light-headed with transfer. Pt got very hot/sweaty with activity. She was able to urinate while on bedside commode then returned to bed. Vital signs: Supine 135/66, HR 81 Sitting 140/75 Standing 118/69 Sitting position after standing 118/62 Back to supine after activity 133/66 Gait Assessment Comments Gait Comments she was unable to progress to gait due to light-headed and orthostatic hypotension Stair Climbing Assessment Comments Stair Climbing unable Comments PT-Balance Assessment Sitting Balance and Reactions Static Sitting Good Balance Ability Dynamic Sitting Fair Balance Ability Standing Balance and Reactions Static Standing Fair Balance Ability Dynamic Standing Fair Balance Ability Device Used FWW M5 PT-IP Objective Assessments Start: 11/26/25 13:00 Freq: NEEDED Status: Active Protocol: Document 05/21/25 11:00 DLM (Rec: 05/21/25 13:20 DLM Desktop) Orientation Orientation/Cognition Level of Alertness Alert Orientation Name,Age,Birthday,Month,Date,Year,Day of Week,Place, Situation Language Function No Deficits Noted Ability Safety Awareness Understands Safety Issues Memory Description No Deficits Noted Gross Range of Motion Upper Extremity ROM Assessment Within Functional Limits Lower Extremity ROM Assessment Within Functional Limits Impairments pain left hip area Strength Upper Extremity Strength Assessment Within Functional Limits Lower Extremity Strength Assessment Left Impaired Hip needs assist to move LE in bed with pain Knee 4/5 Ankle 5/5 Comments Strength Comments left hip/low back area pain interferes with functional use left LE Coordination Assessment Gross Coordination Gross Coordination WNL Sensation Assessment Sensation Gross Sensation WNL Muscle Tone Muscle Tone WNL Yes M6 PT-IP Treatment Start: 05/21/25 13:00 Freq: NEEDED Status: Active Protocol: Document 05/21/25 11:00 DLM (Rec: 05/21/25 13:20 DLM Desktop) Physical Therapy Treatment Education Education Provided Safety Other Treatments Other Treatment Her Sister arrived by wheelchair during this visit. She Performed is caring for pt's dog. Her Sister ambulates with cane . Her Sister is willing to go to [facility] to get equipment for home as needed. M7 PT-IP Assessment and Plan Start: 05/21/25 13:00 Freq: NEEDED Status: Active Protocol: Document 05/21/25 11:00 DLM (Rec: 05/21/25 13:20 DLM Desktop) PT Summary Assessment and Plan Potential Rehabilitation Good Potential Status of Condition Evolving at Evaluation Summary Impairments Pain,ROM,Strength,Balance,Bed Mobility,Transfers,Gait, Activity Tolerance Assessment Summary Valerie was admitted after a fall at home. She was not able to get up after falling and was found down by her mail man. She reports she did not have her phone close when she fell. She suffered left elbow laceration, left acetabular fx, left pelvic symphysis fx, left public rami fx, left sacral fx. She describes feeling weak since this admission. She presents with orthostatic hypotension during this therapy visit which limited her activity. Pt reports feeling very light-headed when up as well as getting sweaty and hot. She was able to get up to bedside commode to urinate but was returned to supine to rest. She is well below her baseline of independent without a device. She is not safe to discharge home alone. Her Sister is not able to care for at this level of assist. Recommend SNF rehab at discharge. Goals Bed Mobility Goal Independent Transfer Goal Independent,Front Wheeled Walker Gait Goal Independent,Front Wheel Walker Gait Distance 150 feet Other Goals up/down 2 steps with bilateral rails and SBA Days to Meet Goals 10 Frequency of Treatment Frequency Of Once a Day Treatment Treatment Plan Physical Therapy Bed Mobility Training,Transfer Training,Gait Training, Treatment Plan Therapeutic Exercise,Balance Retraining,Discharge Planning,Hot or Cold Pack,Neuromuscular Re-ed Other closely monitor orthostatic hypotension Recommendations and Next Treatment Focus Precautions Other Precautions fx left acetabulum, left pubic rami and left pubic symphysis Orthostatic hypotension getting up Weight Bearing Status Allowed Weight No weight bearing restrictions ordered by ortho Bearing Amount ( enter % or #) (%) Recommendations To Nursing Amount of Assist 1 Person Assist,2 Person Assist Needed Discharge Recommendations PT Discharge SNF Rehab Recommendations Transportation Needs Wheelchair/Cabulance at Discharge - PT assist 1
--- NOTE | 2025-05-21 11:40 | OT.IP.EVAL ---
Current Diagnoses Hypothyroidism, unspecified (05/20/25) Essential (primary) hypertension (05/20/25) Other specified noninfective gastroenteritis and colitis (05/20/25) Fecal impaction (05/20/25) Nondisplaced fracture of anterior column [iliopubic] of left acetabulum, initial encounter for closed fracture (05/20/25) Other specified fracture of left pubis, initial encounter for closed fracture (05/20/25) Past Medical History (Last Updated 05/02/25 @ 11:48 by Kenny Rodriguez MD) Anxiety and depression Arthritis Easy bruisability Environmental allergies GERD (gastroesophageal reflux disease) HLD (hyperlipidemia) HTN (hypertension) Hypothyroid Osteoarthritis Osteopenia Osteoporosis Primary osteoarthritis of both knees Skin cancer Tinnitus Surgical History (Last Reviewed 01/14/25 @ 15:23 by Juanis Curtis PA-C) H/O left wrist surgery (~2012) H/O right wrist surgery (~2009) History of bilateral knee replacement History of hysterectomy History of left knee replacement History of right knee joint replacement History of surgery History of surgery History of tonsillectomy and adenoidectomy Hx of appendectomy Hx of bilateral cataract extraction Hx of oophorectomy Hx of vein stripping Occupational Therapy Inpatient Evaluation/Re-Eval M1 OT IP Prior Functional Status Start: 05/21/25 13:12 Freq: Status: Active Protocol: Document 05/21/25 13:12 [facility] (Rec: 05/21/25 13:26 [facility] Desktop) Medical Review Prior Functional Status Medical History Yes Reviewed Diet/Fluid Regular Consistency Communication reading glasses Mobility and Gait Independent without device. Hx of falls due to her dog. She walks dog daily for about 2 miles. Activities of Daily Independent. Drives Living and IADL's Social History Household Members none Living Arrangements House Number of Floors ( One Floor Floors) Number of Stairs To 2 steps with bilateral rails Enter/Railing? Home Environment Standard Height Toilet,Walk in Shower,Bidet Home Equipment Straight Cane,Shower Seat with Backrest,Grab Bars Near Toilet Employment Status Retired M2 OT-IP Current Condition Start: 05/21/25 13:12 Freq: Status: Active Protocol: Document 05/21/25 13:12 [facility] (Rec: 05/21/25 13:26 [facility] Desktop) Occupational Therapy Current Condition Current Condition Evaluation Date 05/21/25 Treatment Diagnosis Left acetabular and complex pelvic fractures Diagnosis Onset Date 05/20/25 M3 OT- IP Subjective and Pain Start: 05/21/25 13:12 Freq: Status: Active Protocol: Document 05/21/25 13:12 [facility] (Rec: 05/21/25 13: [facility] Desktop) OT- Subjective Occupational Therapy Visit Type Type Initial Evaluation Visit Start Time 09:10 Visit Stop Time 11:00 Occupational Therapy Visit Comments Patient Comments Pt agreed to get up. Nursing able to come and re-dress her left elbow laceration as the bandage fell off. Patient/Caregiver To get better. Goals OT Pain Assessment Pain When Pain Assessed At Rest Pain Present Pain Present Pain Reported Location low back Intensity 7 Scale Used Numeric (0 - 10) M4 OT- IP ADL's Start: 05/21/25 13:12 Freq: Status: Active Protocol: Document 05/21/25 13:12 [facility] (Rec: 05/21/25 13:26 [facility] Desktop) OT [id number] Comments OT Self-Feeding Not at meal time. Comments OT ADL-Grooming General Evaluation Grooming Ability Minimal Assistance Comments OT Grooming Comments JOMAR to help comb the back of her head. OT ADL-Oral Care Comments Oral Care Comments Not performed. OT ADL-Dressing General Eval Lower Body Dressing Maximum Assistance Ability Areas Needing Underpants/Brief,Socks Assistance OT ADL-Toileting General Evaluation Toileting Ability Maximum Assistance Areas Needing Manage Clothing,Perform Perineal Hygiene Assistance OT ADL-Bathing Comments OT Bathing Comments Sponge bath more appropriate due to hypotensive when up on her feet. M5 OT- IP IADL's Start: 05/21/25 13:12 Freq: Status: Active Protocol: Document 05/21/25 13:12 [facility] (Rec: 05/21/25 13:26 [facility] Desktop) OT-Instrumental Activities of Daily Living Home Safety Awareness Ability to Problem Able to Problem Solve Solve Emergency Situations Medication Management Medication Pt states does her own. Management Comments Meal Preparation Meal Preparation Pt will need assist. Comments J2Ee Java Developer J2Ee Java Developer Pt will need assist. Comments M6 OT- IP Functional Cognition Start: 05/21/25 13:12 Freq: Status: Active Protocol: Document 05/21/25 13:12 [facility] (Rec: 05/21/25 13:26 [facility] Desktop) Cognitive Factors Limiting Selfcare Function Cognitive Ability Level of Alertness Alert Patient Orientation Name,Age,Birthday,Month,Date,Year,Day of Week,Place, Situation Attention Span Capable of Focused Attention,Capable of Sustained Ability Attention Ability to Follow Able to Follow One Step Commands Commands Cognitive Comments Cognitive Assessment Pt able to follow commands for ADL and mobility needs. Comments VC to push up with for the bed when coming to stand to the FWW. OT- Vision and Hearing OT- Vision Assessment Visual Acuity Glasses For Reading Visual Attentiveness WFL Occular Pursuits WFL M7 OT- IP Mobility and Balance Start: 05/21/25 13:12 Freq: Status: Active Protocol: Document 05/21/25 13:12 [facility] (Rec: 05/21/25 13: [facility] Desktop) OT- Bed Mobility Assessment Supine to Sit Supine to Sit Assist Minimal Assistance OT-Transfer Assessment Sit to and From Stand Sit to and from Minimal Assistance,Moderate Assistance Stand Transfers Transfer Ability Minimal Assistance,Moderate Assistance Technique Transfer Destination Bed,Bedside Commode Transfer Technique Stand Step Pivot Devices Transfer Assistive Gait Belt,Front Wheeled Walker Devices Comments Mobility Comments JOMAR with assist to help move her LLE to the edge of the bed. MIN/MODA to stand to the FWW and transfer to and from the bed to BSC. BP sitting 140/75 and after standing 118/69. Pt feeling sweaty and woozy. Assisted to get back to bed and nursing notified. OT- Balance Assessment Sitting Balance and Reactions Static Sitting Good Balance Ability Dynamic Sitting Fair Balance Ability Standing Balance and Reactions Static Standing Fair Balance Ability Dynamic Standing Poor Balance Ability M8 OT- IP Objective Assessments Start: 05/21/25 13:12 Freq: Status: Active Protocol: Document 05/21/25 13:12 [facility] (Rec: 05/21/25 13:26 [facility] Desktop) OT Gross Range of Motion Upper Extremity Range of Motion Assessment Bilaterally Impaired OT Strength Upper Extremity Strength Assessment Bilaterally Impaired M9 OT- IP Assessment and Plan Start: 05/21/25 13:12 Freq: Status: Active Protocol: Document 05/21/25 13:12 [facility] (Rec: 05/21/25 13:26 [facility] Desktop) OT Summary Assessment and Plan Potential Rehabilitation Good Potential Analytic Complexity High at Evaluation Summary OT Impairments Pain,Balance,Functional Mobility,Grooming,Dressing, Toileting,Bathing,Toilet Transfers,Shower Transfers, Activity Tolerance Progress Towards Slow Progress due to Pain,Slow Progress due to Medical Goals Issues,Slow Progress due to Activity Tolerance Assessment Summary Pt High complexity and main barriers are pain, steps and currently needing assist for ADl and mobility needs . Pt also having hypotension during transitions today and therefore mainly just able to tolerate transfers at this time. Prior pt was MOD I with all needs and caring for her dog. Pt to go to skilled rehab when medically stable. Goals Self-Feeding Goal Independent Grooming Goal Independent Dressing Goal Independent Toileting Goal Independent Bathing Goal Independent Toilet Transfer Goal Independent Shower Transfer Goal Independent Days to Meet Goals 25 Frequency of Treatment Other frequency 5x/week Treatment Plan OT Treatment Plan ADL Training,Functional Mobility,Patient/Family Education,Discharge Planning Discharge Recommendations OT Discharge SNF Rehab Recommendations Transportation Needs Wheelchair/Cabulance at Discharge
[2025-05-21] MEDS: NEOMYCIN/POLYMYXIN/BACITRA UD OINT 1 EACH TOP ×2 (11:54→20:40)
[2025-05-21] MEDS: IBUPROFEN 600 MG TABLET PO (13:11)
--- NOTE | 2025-05-21 14:07 | CM.DANOTE ---
Initial DCP Assessment Visit Note Reviewed EMR and team rounds for pt's medical status and updates. Met with pt at bedside to introduce self and role. Pt lives independently in her own home here in [place]. She is already being recommended for SNF rehab at time of d/c. DCP will need to confirm preference and send clinicals, pt did not want to discuss today. Payor: Chuy TATE ([facility]) PCP: Dr. Garcia Pt is a 79 year-old F who presented to the ED yesterday afternoon via EMS after she slid off of her couch to the ground, and was found by the mailman. She was unable to get her self off the ground, and EMS needed to break her door down in order to get to her. She was found to be incontinent and soiled by the time she was found and brought to the ED. CT pelvis did show multiple pelvic fractures, and a sacral fracture as well. She also cut her elbow during the fall and had a laceration on her elbow which required stitches. Ortho was consulted, and they felt that her fractures were non-surgical. The plan was made to admit her for pain management and PT/OT. DCP will need to f/u with [facility] and sending clinicals to her preferred SNF after the holiday. Discharge Planning/Care Management CM Discharge Assessment Start: 05/20/25 16:39 Freq: Status: Active Protocol: Document 05/21/25 14:05 DPL (Rec: 05/21/25 14:07 DPL [id number]) Discharge Planning Assessment Assigned Discharge CHEPE Ruiz Air Traffic Control Operator Provider Dr. Garcia [facility] Advance Directives? Yes Advance Directives No on File History Provided By Patient,Medical Record Has Patient been No admitted in last 30 days? Prior Living House Arrangements Household Members none Type of Drives own vehicle transporation used prior to admit Independent with ADL Yes 's Is patient alert and Yes oriented? Comment N/A Caregiver for No Another Comment N/A DME Already Rented / Bath Bench,Elevated Toilet Seat Owned Patient/Family Assisted Facility Preference Barriers to No Discharge Discharge Plan Assisted Facility Referrals Initiated Assisted If patient plan is No SNF: Has PASSR been completed? SNF/HH Preference Pending Has Agency SNF been No contacted Whiteboard Updated Yes in Patient Room with name and ext. # of Counter Control Operator Review Status In Process Please Provide Date 05/21/25 Initial DC Assessment Was Performed
[2025-05-21 20:40] VITALS: BP 135/77; PULSE 81; RESP 17; TEMP 36.2; O2SAT 93
[2025-05-22] MEDS: ONDANSETRON 4 MG ODT PO (04:23)
[2025-05-22] MEDS: LEVOTHYROXINE 137 MCG TABLET PO (05:19)
[2025-05-22] MEDS: IBUPROFEN 600 MG TABLET PO (05:19)
[2025-05-22 05:26] LABS: Blood Urea Nitrogen 23 mg/dL (7-17); Calcium 8.9 mg/dL (8.4-10.2); Carbon Dioxide 26 mmol/L (22-32); Chloride 92 mmol/L (98-107); Estimated Glomerular Filt Rate > 60 mL/min (>60); Glucose 99 mg/dL (70-99); HEMOLYSIS < 15 (0-50); Potassium 3.4 mmol/L (3.4-5.1); Sodium 124 mmol/L (137-145)
[2025-05-22 07:41] VITALS: BP 118/89; PULSE 78; RESP 18; TEMP 36.4; O2SAT 91
[2025-05-22] MEDS: FAMOTIDINE 20 MG TABLET PO (08:58)
[2025-05-22] MEDS: DOCUSATE 100 MG CAPSULE PO ×2 (08:58→21:11)
[2025-05-22] MEDS: NEOMYCIN/POLYMYXIN/BACITRA UD OINT 1 EACH TOP ×2 (08:59→21:11)
[2025-05-22] MEDS: ENOXAPARIN 40 MG/0.4 ML SYRINGE SUBCUT (08:59)
--- NOTE | 2025-05-22 09:35 | PC.NURSE ---
Pt reports less appetite and denies constipation despite of not having BM since admission. PRN bowel regimen recommended, but pt denied bowel regimen at this time
--- NOTE | 2025-05-22 12:05 | PM.PN.IH.1 ---
Subjective Subjective Interval history: The pt reports that her pain is well controlled, but continues to have increased pain when moving/standing. She denies any chest pain, SOB, or other concerns. She is very disappointed that she is in the hospital over giving. The pt has not had a BM since being in the hospital. Exam Vital Signs (past 8 hours): - 05/22/25 07:41 Temperature 97.6 F Pulse Rate 78 Respiratory Rate 18 Blood Pressure 118/89 Pulse Oximetry 91 Oxygen Flow Rate 0 Oxygen Delivery Method Room Air Oxygen Flow Rate 0 Narrative Exam Narrative: General: NAD, appears well CV: RRR, no murmurs Resp: CTAB Abd: Soft, NTND, +BS Ext: Left hip TTP without obvious deformity, no edema Objective Labs 05/21/25 05:35 05/22/25 04:00 Labs: Laboratory Results - last 24 hr 05/22/25 04:00 Sodium 124 L Potassium 3.4 Chloride 92 L Carbon Dioxide 26 BUN 23 H Creatinine 0.89 Estimated GFR > 60 BUN/Creatinine Ratio 25.8 H Glucose 99 Calcium 8.9 PFSH Medical History (Updated 05/20/25 @ 18:14 by Biju Garcia MD) Primary osteoarthritis of both knees Environmental allergies Anxiety and depression Easy bruisability Skin cancer Arthritis Osteopenia Osteoarthritis Osteoporosis GERD (gastroesophageal reflux disease) HTN (hypertension) HLD (hyperlipidemia) Tinnitus Hypothyroid Surgical History Hx of vein stripping History of surgery H/O left wrist surgery (~2012) H/O right wrist surgery (~2009) History of right knee joint replacement History of left knee replacement History of surgery Hx of oophorectomy History of hysterectomy Hx of appendectomy History of tonsillectomy and adenoidectomy Hx of bilateral cataract extraction History of bilateral knee replacement Social History household members: none Smoking Status: Never smoker alcohol intake: current Assessment & Plan Assessment and plan (1) Acetabular fracture: Qualifiers: Encounter type: initial encounter Fracture alignment: nondisplaced Fracture type: closed Laterality: left Sublocation of acetabulum: anterior column Qualified Code(s): S32.435A - Nondisplaced fracture of anterior column [iliopubic] of left acetabulum, initial encounter for closed fracture Status: Acute (2) Closed fracture of pubic ramus: Qualifiers: Encounter type: initial encounter Laterality: left Qualified Code(s): S32.592A - Other specified fracture of left pubis, initial encounter for closed fracture Status: Acute (3) Hypothyroid: Problem details: 08/02/2023: TSH 0.09, FT4 1.77 Qualifiers: Hypothyroidism type: unspecified Qualified Code(s): E03.9 - Hypothyroidism, unspecified Status: Acute (4) HTN (hypertension): Qualifiers: Hypertension type: primary hypertension Qualified Code(s): I10 - Essential (primary) hypertension Status: Acute (5) Fecal impaction: Status: Acute (6) Stercoral colitis: Status: Acute Assessment & Plan narrative: 79-year-old female with hypertension, hyperlipidemia, hypothyroidism, GERD admitted for complex left pelvic fracture. #complex left pelvic fracture Involving the anterior column of the left acetabulum, the left pubic symphysis, and the left inferior pubic ramus as well as a left-sided sacral insufficiency fracture. Orthopedics consulted and recommend nonoperative approach with pain management and physical therapy. Likely will need SNF for additional recovery on discharge. - Continue inpatient PT -schedule ibuprofen, acetaminophen PRN -Forbes for breakthrough pain -Encouraged stool softeners today -zofran for nausea #hypothyroid -levothyroxine #hypertension: BP in good range -amlodipine #fecal impaction #stercoral colitis -stool softener, enema PRN Dispo: Plan to d/c to SNF. Awaiting placement. Diet: regular DVT ppx: lovenox Code: LIMITED (no CPR or intubation) PCP: Jose MDM: Temitope Motta (sister, ) Time-Based Coding :: [TOTAL MINUTES] spent with patient and on the chart (including review of chart, obtaining history, exam, reviewing outside data, placing orders, documenting exam and treatment plan, and counseling patient) on [DATE]. PROFEE Biological Technician Document charge(s): Yes Charge Codes Subsequent inpatient/observation care: [id number]
--- NOTE | 2025-05-22 13:48 | OT.IP.TRT ---
Current Diagnoses Hypothyroidism, unspecified (05/20/25) Essential (primary) hypertension (05/20/25) Other specified noninfective gastroenteritis and colitis (05/20/25) Fecal impaction (05/20/25) Nondisplaced fracture of anterior column [iliopubic] of left acetabulum, initial encounter for closed fracture (05/20/25) Other specified fracture of left pubis, initial encounter for closed fracture (05/20/25) Occupational Therapy Treatment Note M2 OT-IP Current Condition Start: 05/21/25 13:12 Freq: Status: Active Protocol: Document 05/21/25 13:12 [facility] (Rec: 05/21/25 13:26 [facility] Desktop) Occupational Therapy Current Condition Current Condition Evaluation Date 05/21/25 Treatment Diagnosis Left acetabular and complex pelvic fractures Diagnosis Onset Date 05/20/25 M3 OT- IP Subjective and Pain Start: 05/21/25 13:12 Freq: Status: Active Protocol: Document 05/22/25 13:55 [facility] (Rec: 05/22/25 14:03 [facility] Desktop) OT- Subjective Occupational Therapy Visit Type Type Treatment Note Visit Start Time 13:25 Visit Stop Time 13:48 Occupational Therapy Visit Comments Patient Comments Pt agreed to get up. Patient/Caregiver To get better. Goals OT Pain Assessment Pain When Pain Assessed At Rest Pain Present Pain Present Pain Reported Location low back Intensity 3 Scale Used Numeric (0 - 10) M4 OT- IP ADL's Start: 05/21/25 13:12 Freq: Status: Active Protocol: Document 05/22/25 13:55 [facility] (Rec: 05/22/25 14:03 [facility] Desktop) OT ADL-Dressing General Eval Lower Body Dressing Maximum Assistance Ability Areas Needing Socks Assistance M5 OT- IP IADL's Start: 05/21/25 13:12 Freq: Status: Active Protocol: Document 05/21/25 13:12 [facility] (Rec: 05/21/25 13:26 [facility] Desktop) OT-Instrumental Activities of Daily Living Home Safety Awareness Ability to Problem Able to Problem Solve Solve Emergency Situations Medication Management Medication Pt states does her own. Management Comments Meal Preparation Meal Preparation Pt will need assist. Comments Information Technology Coordinator Information Technology Coordinator Pt will need assist. Comments M6 OT- IP Functional Cognition Start: 05/21/25 13:12 Freq: Status: Active Protocol: Document 05/22/25 13:55 [facility] (Rec: 05/22/25 14:03 [facility] Desktop) Cognitive Factors Limiting Selfcare Function Cognitive Comments Cognitive Assessment Pt still needing encouragement and cues when coming to Comments stand and sitting down. M7 OT- IP Mobility and Balance Start: 05/21/25 13:12 Freq: Status: Active Protocol: Document 05/22/25 13:55 [facility] (Rec: 05/22/25 14:03 [facility] Desktop) OT- Bed Mobility Assessment Supine to Sit Supine to Sit Assist Contact Guard Assistance OT-Transfer Assessment Sit to and From Stand Sit to and from Contact Guard Assistance Stand Transfers Transfer Ability Contact Guard Assistance Technique Transfer Destination Bed,Chair Transfer Technique Stand Step Pivot Devices Transfer Assistive Gait Belt,Front Wheeled Walker Devices Comments Mobility Comments BP supine 112/65, sitting 140/77 and after standing 129 /71 and able to transfer with CGA with FWW. VC for FWW and leg placements when sitting and standing up. OT- Balance Assessment Sitting Balance and Reactions Static Sitting Good Balance Ability Dynamic Sitting Fair Balance Ability Standing Balance and Reactions Static Standing Fair Balance Ability Dynamic Standing Fair Balance Ability M8 OT- IP Objective Assessments Start: 05/21/25 13:12 Freq: Status: Active Protocol: Document 05/21/25 13:12 [facility] (Rec: 05/21/25 13:26 [facility] Desktop) OT Gross Range of Motion Upper Extremity Range of Motion Assessment Bilaterally Impaired OT Strength Upper Extremity Strength Assessment Bilaterally Impaired M9 OT- IP Assessment and Plan Start: 05/21/25 13:12 Freq: Status: Active Protocol: Document 05/22/25 13:55 [facility] (Rec: 05/22/25 14:03 [facility] Desktop) OT Summary Assessment and Plan Potential Rehabilitation Good Potential Analytic Complexity High at Evaluation Summary OT Impairments Pain,Balance,Functional Mobility,Grooming,Dressing, Toileting,Bathing,Toilet Transfers,Shower Transfers, Activity Tolerance Progress Towards Progressing Toward Goals Goals Assessment Summary Pt doing better today and able to do bed mobility and transfers with CGA with FWW and safety vc. Pt a little hypotensive but better then yesterday from 140/77 to 129/71 from sitting and after standing today. Pt to go to skilled rehab when medically stable. Goals Self-Feeding Goal Independent Grooming Goal Independent Dressing Goal Independent Toileting Goal Independent Bathing Goal Independent Toilet Transfer Goal Independent Shower Transfer Goal Independent Days to Meet Goals 24 Frequency of Treatment Other frequency 5x/week Treatment Plan OT Treatment Plan ADL Training,Functional Mobility,Patient/Family Education,Discharge Planning Discharge Recommendations OT Discharge SNF Rehab Recommendations Transportation Needs Wheelchair/Cabulance at Discharge
--- NOTE | 2025-05-22 14:05 | PT.IPTN ---
Current Diagnoses Hypothyroidism, unspecified (05/20/25) Essential (primary) hypertension (05/20/25) Other specified noninfective gastroenteritis and colitis (05/20/25) Fecal impaction (05/20/25) Nondisplaced fracture of anterior column [iliopubic] of left acetabulum, initial encounter for closed fracture (05/20/25) Other specified fracture of left pubis, initial encounter for closed fracture (05/20/25) Physical Therapy Treatment Note M2 PT-IP Current Condition Start: 05/21/25 13:00 Freq: NEEDED Status: Active Protocol: Document 05/21/25 11:00 [facility] (Rec: 05/21/25 13:20 [facility] Desktop) Physical Therapy Current Condition Current Condition Evaluation Date 05/21/25 Treatment Diagnosis Fall, left pelvic and acetabular fx, impaired gait Onset Date 05/20/25 M3 PT-IP Subjective Start: 05/21/25 13:00 Freq: NEEDED Status: Active Protocol: Document 05/22/25 13:24 MB (Rec: 05/22/25 14:05 [facility] Desktop) Subjective Physical Therapy Visit Type Type Treatment Note Visit Start Time 13:24 Visit Stop Time 13:49 Number of QUALITY ANALYST Visits 0 Physical Therapy Visit Comments Patient Comments Pt is agreeable to therapy Therapy Pain Assessment Pain When Pain Assessed At Rest Pain Present Pain Present Pain Reported Location left hip Intensity 3 Scale Used Numeric (0 - 10) Pain Management Distraction,Re-positioning,Timing of Activity with Techniques Medications M4 PT-IP Mobility and Gait Start: 05/21/25 13:00 Freq: NEEDED Status: Active Protocol: Document 05/22/25 13:24 MB (Rec: 05/22/25 14:05 MB Desktop) PT-Bed Mobility Assessment Supine to Sit Supine to Sit Contact Guard Assistance,1 Person Assistance,Head of Bed Elevated,Bedrails Scooting Scooting to Edge of Contact Guard Assistance Bed PT-Transfer Assessment Sit to and From Stand Sit to and from Contact Guard Assistance,1 Person Assistance,Use of Stand Upper Extremities Equipment Transfer Assistive Gait Belt,Front Wheeled Walker Device Transfers Transfer Destination Chair Transfer Technique Stepping Transfer Ability Level of Assist Contact Guard Assistance,1 Person Assistance,Use of Upper Extremities Comments Mobility Comments Pt is able to mobilize in bed and get to EOB to the left with increased time, encouragement, cues and use of gait belt looped around left foot and she uses it to move her left leg. BP does not drop as much today and is in LUE: hook lying 112/65; sitting 140/77, 100; sitting again 148/76, 94; once up in chair 129/71, 94. Gait Assessment Gait Gait Assistance Contact Guard Assist,1 Person Assist Required: Distance (Feet) 2 Able to Maintain Yes Weight Bearing Status During Gait Assistive Devices Assistive Device Gait Belt,Front Wheeled Walker Gait Deviations General Gait Pattern Antalgic,Decreased Stride Length,Decreased Feet Clearance,Flexed Trunk,Step-to Gait Factors Limiting Gait Function Factors Limiting Decreased Activity Tolerance,Decreased Strength, Gait Function Difficulty Following Directions,Pain,Poor Balance Comments Gait Comments Cues for step-to gait today, moving walker and then left foot and then right foot. Practiced STS x2 from the chair to insure proper hand placement on the chair and safe standing balance PT-Balance Assessment Sitting Balance and Reactions Static Sitting Good Balance Ability Dynamic Sitting Fair Balance Ability Standing Balance and Reactions Static Standing Fair Balance Ability Dynamic Standing Fair Balance Ability Device Used FWW M5 PT-IP Objective Assessments Start: 05/21/25 13:00 Freq: NEEDED Status: Active Protocol: Document 05/21/25 11:00 [facility] (Rec: 05/21/25 13:20 [facility] Desktop) Orientation Orientation/Cognition Level of Alertness Alert Orientation Name,Age,Birthday,Month,Date,Year,Day of Week,Place, Situation Language Function No Deficits Noted Ability Safety Awareness Understands Safety Issues Memory Description No Deficits Noted Gross Range of Motion Upper Extremity ROM Assessment Within Functional Limits Lower Extremity ROM Assessment Within Functional Limits Impairments pain left hip area Strength Upper Extremity Strength Assessment Within Functional Limits Lower Extremity Strength Assessment Left Impaired Hip needs assist to move LE in bed with pain Knee 4/5 Ankle 5/5 Comments Strength Comments left hip/low back area pain interferes with functional use left LE Coordination Assessment Gross Coordination Gross Coordination WNL Sensation Assessment Sensation Gross Sensation WNL Muscle Tone Muscle Tone WNL Yes M6 PT-IP Treatment Start: 05/21/25 13:00 Freq: NEEDED Status: Active Protocol: Document 05/21/25 11:00 DLM (Rec: 05/21/25 13:20 [facility] Desktop) Physical Therapy Treatment Education Education Provided Safety Other Treatments Other Treatment Her Sister arrived by wheelchair during this visit. She Performed is caring for pt's dog. Her Sister ambulates with cane . Her Sister is willing to go to [facility] to get equipment for home as needed. M7 PT-IP Assessment and Plan Start: 05/21/25 13:00 Freq: NEEDED Status: Active Protocol: Document 05/22/25 13:24 MB (Rec: 05/22/25 14:05 [facility] Desktop) PT Summary Assessment and Plan Potential Rehabilitation Good Potential Status of Condition Evolving at Evaluation Summary Impairments Pain,ROM,Strength,Balance,Bed Mobility,Transfers,Gait, Activity Tolerance Progress Towards Progressing Toward Goals Goals Assessment Summary Pt is progressing with bed mobility, transfers and stepping today. She con't with higher pain with bed mobility and WB and pain decreases once up in the chair . Her BP does not drop as much today. Ed pt to perform APs and QS in the chair. Goals Bed Mobility Goal Independent Transfer Goal Independent,Front Wheeled Walker Gait Goal Independent,Front Wheel Walker Gait Distance 50 feet Other Goals up/down 2 steps with bilateral rails and SBA Days to Meet Goals 10 Frequency of Treatment Frequency Of Once a Day Treatment Treatment Plan Physical Therapy Bed Mobility Training,Transfer Training,Gait Training, Treatment Plan Therapeutic Exercise,Balance Retraining,Discharge Planning,Hot or Cold Pack,Neuromuscular Re-ed Other closely monitor orthostatic hypotension Recommendations and Next Treatment Focus Precautions Other Precautions fx left acetabulum, left pubic rami and left pubic symphysis Orthostatic hypotension getting up Weight Bearing Status Allowed Weight No weight bearing restrictions ordered by ortho Bearing Amount ( enter % or #) (%) Recommendations To Nursing Amount of Assist 1 Person Assist Needed Discharge Recommendations PT Discharge SNF Rehab Recommendations Transportation Needs Wheelchair/Cabulance at Discharge - PT assist x1
--- NOTE | 2025-05-22 14:15 | CM.DPC ---
DCP SNF Planning: Per MD, pt making progress with her non-op pelvic fxs and to work more with PT/OT and recommending SNF at d/c. Per PT/OT, also recommending SNF at d/c. SW met bedside with pt and niece and explained role and discussed SNF recommendation and pt and family in agreement that return home with sister support is not a very safe option. Pt has no hx of SNF but her late had been to [facility]. SW gave pt SNF Choice list and she reviewed and talked to family and currently preference is 1) [facility] 2) maybe [facility] but aware that SNF will need to be contracted with her [place] [facility] Adv insurance. SW made referral to: [facility] and they are contracted and willing to review but insurance closed on the holiday today. [facility]- although pt might not want to go to [facility] since spouse had been there, [facility] not contracted but willing to call insurance tomorrow to determine if pt has coverage for SNF [facility]- faxed referral and left msg with admission cell phone stating their facility is pt's preference and to determine if they are contracted. PASRR completed but needs MD signature for hospital exempted discharge for anxiety and depression. Hermila Trevino, CORPORATE AFFAIRS MANAGER
[2025-05-22 19:00] VITALS: BP 151/88; PULSE 81; RESP 19; TEMP 36.5; O2SAT 93
[2025-05-23] MEDS: IBUPROFEN 600 MG TABLET PO ×2 (06:22→12:34)
[2025-05-23] MEDS: LEVOTHYROXINE 137 MCG TABLET PO (06:39)
[2025-05-23 08:00] VITALS: BP 135/66; PULSE 80; RESP 16; TEMP 36.6; O2SAT 92
[2025-05-23] MEDS: ENOXAPARIN 40 MG/0.4 ML SYRINGE SUBCUT (09:15)
[2025-05-23] MEDS: DOCUSATE 100 MG CAPSULE PO ×2 (09:16→20:30)
[2025-05-23] MEDS: MAGNESIUM HYDROXIDE 30 ML UDC PO (10:43)
--- NOTE | 2025-05-23 11:10 | CM.DPC ---
DCP Cont. Reviewed EMR and team rounds for pt's medical status and updates. Rachel from [facility]- submitted auth from the [facility] portal, however they are closed today to review. Called [facility] and asked if they can accept and if they have subitted auth. Pt's preference is [facility]. Pending.
--- NOTE | 2025-05-23 11:40 | P.PN_ITS ---
Subjective Subjective Interval history: The pt reports that she feels gross this morning. She is looking forward to showering. She feels frustrated with her limited mobility. She remains comfortable with limited pain. Exam Vital Signs (past 8 hours): - 05/23/25 08:00 Temperature 97.8 F Pulse Rate 80 Respiratory Rate 16 Blood Pressure 135/66 Pulse Oximetry 92 Oxygen Flow Rate 0 Oxygen Delivery Method Room Air Oxygen Flow Rate 0 Narrative Exam Narrative: General: NAD, appears well CV: RRR, no murmurs Resp: CTAB Abd: Soft, NTND, +BS Ext: no edema Objective Labs 05/21/25 05:35 05/22/25 04:00 [facility] Medical History (Updated 05/20/25 @ 18:14 by Biju Garcia MD) Primary osteoarthritis of both knees Environmental allergies Anxiety and depression Easy bruisability Skin cancer Arthritis Osteopenia Osteoarthritis Osteoporosis GERD (gastroesophageal reflux disease) HTN (hypertension) HLD (hyperlipidemia) Tinnitus Hypothyroid Surgical History Hx of vein stripping History of surgery H/O left wrist surgery (~2012) H/O right wrist surgery (~2009) History of right knee joint replacement History of left knee replacement History of surgery Hx of oophorectomy History of hysterectomy Hx of appendectomy History of tonsillectomy and adenoidectomy Hx of bilateral cataract extraction History of bilateral knee replacement Social History household members: none Smoking Status: Never smoker alcohol intake: current Assessment & Plan Assessment and plan (1) Acetabular fracture: Qualifiers: Encounter type: initial encounter Fracture alignment: nondisplaced F racture type: closed Laterality: left Sublocation of acetabulum: anterior column Qualified Code(s): S32.435A - Nondisplaced fracture of anterior column [iliopubic] of left acetabulum, initial encounter for closed fracture Status: Acute (2) Closed fracture of pubic ramus: Qualifiers: Encounter type: initial encounter Laterality: left Qualified Code(s): S32.592A - Other specified fracture of left pubis, initial encounter for closed fracture Status: Acute (3) Hypothyroid: Problem details: 08/02/2023: TSH 0.09, FT4 1.77 Qualifiers: Hypothyroidism type: unspecified Qualified Code(s): E03.9 - Hypothyroidism, unspecified Status: Acute (4) HTN (hypertension): Qualifiers: Hypertension type: primary hypertension Qualified Code(s): I10 - Essential (primary) hypertension Status: Acute (5) Fecal impaction: Status: Acute (6) Stercoral colitis: Status: Acute Assessment & Plan narrative: 79-year-old female with hypertension, hyperlipidemia, hypothyroidism, GERD admitted for complex left pelvic fracture. #complex left pelvic fracture Involving the anterior column of the left acetabulum, the left pubic symphysis, and the left inferior pubic ramus as well as a left-sided sacral insufficiency fracture. Orthopedics consulted and recommend nonoperative approach with pain management and physical therapy. Likely will need SNF for additional recovery on discharge. - Continue inpatient PT. Call out to Ortho regarding degree of weight bearing acceptable on the left side. - Ibuprofen, acetaminophen PRN - [place] for breakthrough pain - Encouraged stool softeners today, pt still without a BM - Zofran for nausea #Hypothyroid - Continue home Levothyroxine #Hypertension: BP in good range - Continue home Amlodipine #Fecal impaction #Stercoral colitis - Stool softener, enema PRN Dispo: Plan to d/c to SNF. Awaiting placement and insurance authorization. Hopeful for d/c tomorrow. Diet: regular DVT ppx: lovenox Code: LIMITED (no CPR or intubation) PCP: Jose MDM: Temitope Motta (sister, ) Time-Based Coding :: [TOTAL MINUTES] spent with patient and on the chart (including review of chart, obtaining history, exam, reviewing outside data, placing orders, documenting exam and treatment plan, and counseling patient) on [DATE]. PROFEE Inside Sales Professional Document charge(s): Yes Charge Codes Subsequent inpatient/observation care: [id number]
--- NOTE | 2025-05-23 12:27 | PT.IPTN ---
Current Diagnoses Hypothyroidism, unspecified (05/20/25) Essential (primary) hypertension (05/20/25) Other specified noninfective gastroenteritis and colitis (05/20/25) Fecal impaction (05/20/25) Nondisplaced fracture of anterior column [iliopubic] of left acetabulum, initial encounter for closed fracture (05/20/25) Other specified fracture of left pubis, initial encounter for closed fracture (05/20/25) Physical Therapy Treatment Note M2 PT-IP Current Condition Start: 05/21/25 13:00 Freq: NEEDED Status: Active Protocol: Document 05/21/25 11:00 [facility] (Rec: 05/21/25 13:20 [facility] Desktop) Physical Therapy Current Condition Current Condition Evaluation Date 05/21/25 Treatment Diagnosis Fall, left pelvic and acetabular fx, impaired gait Onset Date 05/20/25 M3 PT-IP Subjective Start: 05/21/25 13:00 Freq: NEEDED Status: Active Protocol: Document 05/23/25 12:22 KJ (Rec: 05/23/25 12:26 KJ [id number]) Subjective Physical Therapy Visit Type Type Treatment Note Visit Start Time 11:43 Visit Stop Time 12:21 Physical Therapy Visit Comments Patient Comments Reports R total shoulder replacement and needs L shoulder replacement. Has had multiple abdominal surgeries which add to difficulty with mobility. Patient Goals To regain mobility and go home Therapy Pain Assessment Pain When Pain Assessed During Mobility Pain Present Pain Present Pain Reported Location left hip Description Acute Pain Behaviors Calling Out,Facial Grimacing,Wincing Pain Management Apply Cold Techniques M4 PT-IP Mobility and Gait Start: 05/21/25 13:00 Freq: NEEDED Status: Active Protocol: Document 05/23/25 12:22 KJ (Rec: 05/23/25 12:26 KJ [id number]) PT-Bed Mobility Assessment Rolling Type of Rolling Roll to Left Level of Assist Moderate Assistance Supine to Sit Supine to Sit Moderate Assistance Scooting Scooting to Edge of Moderate Assistance Bed PT-Transfer Assessment Sit to and From Stand Sit to and from Moderate Assistance Stand Equipment Transfer Assistive Gait Belt,Front Wheeled Walker Device Transfers Transfer Destination Chair Transfer Technique Stand Step Pivot Transfer Ability Level of Assist Minimal Assistance M5 PT-IP Objective Assessments Start: 05/21/25 13:00 Freq: NEEDED Status: Active Protocol: Document 05/23/25 12:22 KJ (Rec: 05/23/25 12:26 KJ [id number]) Orientation Orientation/Cognition Level of Alertness Alert Orientation Name,Age,Birthday,Month,Date,Year,Day of Week,Place, Situation M6 PT-IP Treatment Start: 05/21/25 13:00 Freq: NEEDED Status: Active Protocol: Document 05/23/25 12:22 KJ (Rec: 05/23/25 12:26 KJ [id number]) Physical Therapy Treatment Exercises Exercises Ankle Pumps,Gluteal Sets,Quad Sets Education Education Provided Weight Bearing Status,Safety Other Treatments Other Treatment Instructed on deep breathing exercises. Performed M7 PT-IP Assessment and Plan Start: 05/21/25 13:00 Freq: NEEDED Status: Active Protocol: Document 05/23/25 12:22 KJ (Rec: 05/23/25 12:26 KJ [id number]) PT Summary Assessment and Plan Potential Rehabilitation Excellent Potential Status of Condition Evolving at Evaluation Summary Impairments Pain,ROM,Strength,Bed Mobility,Transfers,Gait Progress Towards Slow Progress due to Pain Goals Assessment Summary Pt is moving slowly due to pain. Treatment Plan Physical Therapy Bed Mobility Training,Transfer Training,Gait Training, Treatment Plan Therapeutic Exercise Weight Bearing Status Weight Bearing Weight Bear as Tolerated Status Recommendations To Nursing Amount of Assist 1 Person Assist Needed Discharge Recommendations PT Discharge SNF Rehab Recommendations Transportation Needs Wheelchair/Cabulance at Discharge [id number]
--- NOTE | 2025-05-23 14:41 | OT.IP.TRT ---
Current Diagnoses Hypothyroidism, unspecified (05/20/25) Essential (primary) hypertension (05/20/25) Other specified noninfective gastroenteritis and colitis (05/20/25) Fecal impaction (05/20/25) Nondisplaced fracture of anterior column [iliopubic] of left acetabulum, initial encounter for closed fracture (05/20/25) Other specified fracture of left pubis, initial encounter for closed fracture (05/20/25) Occupational Therapy Treatment Note M2 OT-IP Current Condition Start: 05/21/25 13:12 Freq: Status: Active Protocol: Document 05/21/25 13:12 [facility] (Rec: 05/21/25 13:26 [facility] Desktop) Occupational Therapy Current Condition Current Condition Evaluation Date 05/21/25 Treatment Diagnosis Left acetabular and complex pelvic fractures Diagnosis Onset Date 05/20/25 M3 OT- IP Subjective and Pain Start: 05/21/25 13:12 Freq: Status: Active Protocol: Document 05/23/25 14:35 [facility] (Rec: 05/23/25 14:41 [facility] Desktop) OT- Subjective Occupational Therapy Visit Type Type Treatment Note Visit Start Time 13:11 Visit Stop Time 13:19 Occupational Therapy Visit Comments Patient Comments Pt states in too much pain at this time to try to get up again. Able to go over TDWB for pt as orders clarified for LLE TDWB now. Asked nursing to put in the orders in the chart. Patient/Caregiver TO get better. Goals OT Pain Assessment Pain When Pain Assessed At Rest Pain Present Pain Present Pain Reported Location left hip Intensity 9 Scale Used Numeric (0 - 10) M4 OT- IP ADL's Start: 05/21/25 13:12 Freq: Status: Active Protocol: Document 05/22/25 13:55 [facility] (Rec: 05/22/25 14:03 [facility] Desktop) OT ADL-Dressing General Eval Lower Body Dressing Maximum Assistance Ability Areas Needing Socks Assistance M5 OT- IP IADL's Start: 05/21/25 13:12 Freq: Status: Active Protocol: Document 05/21/25 13:12 [facility] (Rec: 05/21/25 13:26 [facility] Desktop) OT-Instrumental Activities of Daily Living Home Safety Awareness Ability to Problem Able to Problem Solve Solve Emergency Situations Medication Management Medication Pt states does her own. Management Comments Meal Preparation Meal Preparation Pt will need assist. Comments Parent Partner Parent Partner Pt will need assist. Comments M6 OT- IP Functional Cognition Start: 05/21/25 13:12 Freq: Status: Active Protocol: Document 05/22/25 13:55 [facility] (Rec: 05/22/25 14:03 [facility] Desktop) Cognitive Factors Limiting Selfcare Function Cognitive Comments Cognitive Assessment Pt still needing encouragement and cues when coming to Comments stand and sitting down. M7 OT- IP Mobility and Balance Start: 05/21/25 13:12 Freq: Status: Active Protocol: Document 05/23/25 14:35 [facility] (Rec: 05/23/25 14:41 [facility] Desktop) OT-Transfer Assessment Comments Mobility Comments Able to show pt with FWW how to follow TDWB. Stressed to pt to unweight her LLE with her BUE on the FWW so able to move. M8 OT- IP Objective Assessments Start: 05/21/25 13:12 Freq: Status: Active Protocol: Document 05/21/25 13:12 [facility] (Rec: 05/21/25 13:26 [facility] Desktop) OT Gross Range of Motion Upper Extremity Range of Motion Assessment Bilaterally Impaired OT Strength Upper Extremity Strength Assessment Bilaterally Impaired M9 OT- IP Assessment and Plan Start: 05/21/25 13:12 Freq: Status: Active Protocol: Document 05/23/25 14:35 [facility] (Rec: 05/23/25 14:41 [facility]) OT Summary Assessment and Plan Potential Rehabilitation Good Potential Analytic Complexity High at Evaluation Summary OT Impairments Pain,Balance,Functional Mobility,Grooming,Dressing, Toileting,Bathing,Toilet Transfers,Shower Transfers, Activity Tolerance Progress Towards Progressing Toward Goals,Slow Progress due to Pain Goals Assessment Summary Pt having lots of pain. Notified the nurse but pt not due for pain medications yet. Pt's WB status has been clarified and LLE TDBW. Able to explain and go over how to incorporate her WB status with the FWW. Pt to go to skilled rehab when medically stable. Goals Self-Feeding Goal Independent Grooming Goal Independent Dressing Goal Independent Toileting Goal Independent Bathing Goal Independent Toilet Transfer Goal Independent Shower Transfer Goal Independent Days to Meet Goals 24 Frequency of Treatment Other frequency 5x/week Treatment Plan OT Treatment Plan ADL Training,Functional Mobility,Patient/Family Education,Discharge Planning Discharge Recommendations OT Discharge SNF Rehab Recommendations Transportation Needs Wheelchair/Cabulance at Discharge
[2025-05-23 20:00] VITALS: BP 123/70; PULSE 78; RESP 24; TEMP 36.5; O2SAT 93
[2025-05-23] MEDS: FAMOTIDINE 20 MG TABLET PO (20:30)
[2025-05-23] MEDS: NEOMYCIN/POLYMYXIN/BACITRA UD OINT 1 EACH TOP (20:36)
[2025-05-24] MEDS: ACETAMINOPHEN 325 MG TABLET 650 MG PO (05:56)
[2025-05-24] MEDS: IBUPROFEN 600 MG TABLET PO ×2 (06:21→11:55)
[2025-05-24] MEDS: LEVOTHYROXINE 137 MCG TABLET PO (06:21)
[2025-05-24 08:00] VITALS: BP 141/77; PULSE 76; RESP 16; TEMP 36.7; O2SAT 94
[2025-05-24] MEDS: MAGNESIUM HYDROXIDE 30 ML UDC PO (08:40)
[2025-05-24] MEDS: ENOXAPARIN 40 MG/0.4 ML SYRINGE SUBCUT (08:57)
[2025-05-24] MEDS: DOCUSATE 100 MG CAPSULE PO ×2 (08:58→21:12)
--- NOTE | 2025-05-24 09:58 | PT.IPTN ---
Current Diagnoses Hypothyroidism, unspecified (05/20/25) Essential (primary) hypertension (05/20/25) Other specified noninfective gastroenteritis and colitis (05/20/25) Fecal impaction (05/20/25) Nondisplaced fracture of anterior column [iliopubic] of left acetabulum, initial encounter for closed fracture (05/20/25) Other specified fracture of left pubis, initial encounter for closed fracture (05/20/25) Physical Therapy Treatment Note M2 PT-IP Current Condition Start: 05/21/25 13:00 Freq: NEEDED Status: Active Protocol: Document 05/24/25 09:35 SP (Rec: 05/24/25 11:02 SP Laptop) Physical Therapy Current Condition Current Condition Evaluation Date 05/21/25 Treatment Diagnosis Fall, left pelvic and acetabular fx, impaired gait Onset Date 05/20/25 M3 PT-IP Subjective Start: 05/21/25 13:00 Freq: NEEDED Status: Active Protocol: Document 05/24/25 09:35 SP (Rec: 05/24/25 11:02 SP Laptop) Subjective Physical Therapy Visit Type Type Treatment Note Visit Start Time 09:35 Visit Stop Time 09:58 Notes 05/23/25: Pt reports R total shoulder replacement and needs L shoulder replacement. Has had multiple abdominal surgeries which add to difficulty with mobility. Number of [employer] Visits 1 Physical Therapy Visit Comments Patient Comments Pt was inclined in bed and on the phone with sister when arrived, seems little confused not sure how to call the nurse, [employer] noted and educated pt the call light is near her lap BIG red button. Pt is agreeable to working with [employer]. [employer] discussed with pt that her weight bearing status on LLE has changed as of afternoon yesterday, is now TTWB LLE for safety healing, per orthopedic recommendation ([employer] noted updated in OT 05/23/25 note and status board identification). Pt comments she was unaware and has been putting weight on her L leg thus far. Patient Goals Agreeable to going to SNF. Therapy Pain Assessment Pain When Pain Assessed At Rest Pain Present Pain Present Pain Reported Location left hip Intensity 5 Scale Used 5/10 resting, 6/10 with mobility Description With Movement Pain Behaviors Facial Grimacing Pain Management Distraction,Modification of Treatment,Re-positioning Techniques M4 PT-IP Mobility and Gait Start: 05/21/25 13:00 Freq: NEEDED Status: Active Protocol: Document 05/24/25 09:35 SP (Rec: 05/24/25 11:02 SP Laptop) PT-Bed Mobility Assessment Supine to Sit Supine to Sit Moderate Assistance,1 Person Assistance,Head of Bed Elevated,Bedrails Scooting Scooting to Edge of Moderate Assistance Bed PT-Transfer Assessment Sit to and From Stand Sit to and from Minimal Assistance,1 Person Assistance,Use of Upper Stand Extremities Equipment Transfer Assistive Gait Belt,Front Wheeled Walker Device Transfers Transfer Destination Chair Transfer Technique Stand Hop/Lateral Scoot on RLE with FWW Transfer Ability Level of Assist Minimal Assistance,1 Person Assistance,Use of Upper Extremities Comments Mobility Comments [employer] instructed BLE heel slide pre mobility, partial AROM L knee due to pain L hip. Pt Min A for LLE to EOB and trunk righting use bed rail and pull from PTAs hand to come to sit and scoot to EOB assisted pelvic scoot use transfer pad. Educational cues throughout tx for proper hand placement and TTWB/NWB on LLE able to maintain 90% time, Min A x1 through gait belt STS from EOB with FWW, lateral scoot and small hop on RLE with FWW. Pt was reclined in chair with legs elevated. [employer] requested [employer] to provide chair alarm, pt had all needs in reach and blankets donned before left room. Gait Assessment Gait Gait Assistance Contact Guard Assist,Minimum Assistance,1 Person Assist Required: Distance (Feet) 2 Able to Maintain No Weight Bearing Status During Gait Assistive Devices Assistive Device Gait Belt,Front Wheeled Walker Orthotic/Prosthetic No Devices or Brace: Gait Deviations General Gait Pattern Antalgic,Decreased Stride Length,Decreased Feet Clearance,Flexed Trunk Factors Limiting Gait Function Factors Limiting Decreased Activity Tolerance,Decreased Strength, Gait Function Difficulty Following Directions,Limited Range of Motion ,Pain,Poor Balance,Poor Safety Awareness Comments Gait Comments Education on update of TTWB on LLE, RLE lateral scoot/ small hop with support of FWW, if unable to maintain with therapy & nursing can mobilize via squat pivot. She was able to maintain TTWB/ NWB LLE 90% of the time compliance/understanding with max cues this tx. Stair Climbing Assessment Comments Stair Climbing unable to at this time. Comments PT-Balance Assessment Sitting Balance and Reactions Static Sitting Fair Balance Ability Dynamic Sitting Fair Balance Ability Standing Balance and Reactions Static Standing Fair Balance Ability Dynamic Standing Poor Balance Ability Device Used FWW (TTWB/ NWB LLE) M5 PT-IP Objective Assessments Start: 05/21/25 13:00 Freq: NEEDED Status: Active Protocol: Document 05/23/25 12:22 KJ (Rec: 05/23/25 12:26 KJ [id number]) Orientation Orientation/Cognition Level of Alertness Alert Orientation Name,Age,Birthday,Month,Date,Year,Day of Week,Place, Situation M6 PT-IP Treatment Start: 05/21/25 13:00 Freq: NEEDED Status: Active Protocol: Document 05/24/25 09:35 SP (Rec: 05/24/25 11:02 SP Laptop) Physical Therapy Treatment Exercises Exercises Heel Slides Education Education Provided Weight Bearing Status,Safety M7 PT-IP Assessment and Plan Start: 05/21/25 13:00 Freq: NEEDED Status: Active Protocol: Document 05/24/25 09:35 SP (Rec: 05/24/25 11:02 SP Laptop) PT Summary Assessment and Plan Potential Rehabilitation Excellent Potential Status of Condition Evolving at Evaluation Summary Impairments Pain,ROM,Strength,Balance,Coordination,Cognition,Bed Mobility,Transfers,Gait,Activity Tolerance Progress Towards Slow Progress due to Pain,Slow Progress due to Activity Goals Tolerance Assessment Summary Pt Min/Mod A during bed mobility, Min/Mod A x1 during Stand Pivot transfer max cues for TTWB/NWB on LLE with FWW, maintained 90% time. Continues c/o pain 5-6/10 but demonstrates just small facial expressions. Recommending SNF for progression of strength and continued education on maintain TTWB on LLE. Goals Bed Mobility Goal Independent Transfer Goal Independent,Front Wheeled Walker Gait Goal Independent,Front Wheel Walker Gait Distance 50 feet Other Goals up/down 2 steps with bilateral rails and SBA Days to Meet Goals 10 Frequency of Treatment Frequency Of Once a Day Treatment Treatment Plan Physical Therapy Bed Mobility Training,Transfer Training,Gait Training, Treatment Plan Therapeutic Exercise Other closely monitor orthostatic hypotension, TTWB LLE with Recommendations and FWW vs squat pivot transfer Next Treatment Focus Precautions Other Precautions TTWB LLE as of 05/23/25: fx left acetabulum, left pubic rami and left pubic symphysis Orthostatic hypotension getting up Weight Bearing Status Weight Bearing Touch Down Weight Bearing Status Recommendations To Nursing Amount of Assist 1 Person Assist Needed Discharge Recommendations PT Discharge SNF Rehab Recommendations Transportation Needs Wheelchair/Cabulance at Discharge - PT assist 1
--- NOTE | 2025-05-24 10:59 | PM.PN.IH.1 ---
Subjective Subjective Interval history: The pt this morning primarily has concerns regarding her nursing care in the hospital. She states that she still has significant pain with any movement, but is comfortable when still. She denies any SOB, chest pain, abdominal pain. She has still not had a BM. Exam Vital Signs (past 8 hours): - 05/24/25 08:00 Temperature 98.0 F Pulse Rate 76 Respiratory Rate 16 Blood Pressure 141/77 H Pulse Oximetry 94 Oxygen Flow Rate 0 Oxygen Delivery Method Room Air Oxygen Flow Rate 0 Narrative Exam Narrative: General: NAD, appears well, sitting comfortably in chair CV: RRR, no murmurs Resp: CTAB Abd: Soft, NTND, +BS Ext: no edema Objective Labs 05/21/25 05:35 05/22/25 04:00 [facility] Medical History (Updated 05/20/25 @ 18:14 by Biju Garcia MD) Primary osteoarthritis of both knees Environmental allergies Anxiety and depression Easy bruisability Skin cancer Arthritis Osteopenia Osteoarthritis Osteoporosis GERD (gastroesophageal reflux disease) HTN (hypertension) HLD (hyperlipidemia) Tinnitus Hypothyroid Surgical History Hx of vein stripping History of surgery H/O left wrist surgery (~2012) H/O right wrist surgery (~2009) History of right knee joint replacement History of left knee replacement History of surgery Hx of oophorectomy History of hysterectomy Hx of appendectomy History of tonsillectomy and adenoidectomy Hx of bilateral cataract extraction History of bilateral knee replacement Social History household members: none Smoking Status: Never smoker alcohol intake: current Assessment & Plan Assessment and plan (1) Acetabular fracture: Qualifiers: Encounter type: initial encounter Fracture alignment: nondisplaced Fracture type: closed Laterality: left Sublocation of acetabulum: anterior column Qualified Code(s): S32.435A - Nondisplaced fracture of anterior column [iliopubic] of left acetabulum, initial encounter for closed fracture Status: Acute (2) Closed fracture of pubic ramus: Qualifiers: Encounter type: initial encounter Laterality: left Qualified Code(s): S32.592A - Other specified fracture of left pubis, initial encounter for closed fracture Status: Acute (3) Hypothyroid: Problem details: 08/02/2023: TSH 0.09, FT4 1.77 Qualifiers: Hypothyroidism type: unspecified Qualified Code(s): E03.9 - Hypothyroidism, unspecified Status: Acute (4) HTN (hypertension): Qualifiers: Hypertension type: primary hypertension Qualified Code(s): I10 - Essential (primary) hypertension Status: Acute (5) Fecal impaction: Status: Acute (6) Stercoral colitis: Status: Acute Assessment & Plan narrative: 79-year-old female with hypertension, hyperlipidemia, hypothyroidism, GERD admitted for complex left pelvic fracture. #complex left pelvic fracture Involving the anterior column of the left acetabulum, the left pubic symphysis, and the left inferior pubic ramus as well as a left-sided sacral insufficiency fracture. Orthopedics consulted and recommend nonoperative approach with pain management and physical therapy. Likely will need SNF for additional recovery on discharge. - Continue inpatient PT. Ortho instructed toe touch weight bearing at this time. - Ibuprofen, acetaminophen PRN - [place] for breakthrough pain - Continue with bowel regimen, still no BM - Zofran for nausea #Hypothyroid - Continue home Levothyroxine #Hypertension: BP in good range - Continue home Amlodipine #Fecal impaction #Stercoral colitis - Stool softener, enema PRN Dispo: Plan to d/c to SNF. Awaiting placement and insurance authorization. Diet: regular DVT ppx: lovenox Code: LIMITED (no CPR or intubation) PCP: Jose MDM: Temitope Raymondatifdevang (sister, ) Time-Based Coding :: [TOTAL MINUTES] spent with patient and on the chart (including review of chart, obtaining history, exam, reviewing outside data, placing orders, documenting exam and treatment plan, and counseling patient) on [DATE]. PROFEE Mold Operator Document charge(s): Yes Charge Codes Subsequent inpatient/observation care: [id number]
[2025-05-24 19:00] VITALS: BP 134/64; PULSE 83; RESP 16; TEMP 36.4; O2SAT 98
[2025-05-24] MEDS: FAMOTIDINE 20 MG TABLET PO (21:12)
[2025-05-25] MEDS: IBUPROFEN 600 MG TABLET PO ×3 (05:14→18:32)
[2025-05-25] MEDS: LEVOTHYROXINE 137 MCG TABLET PO (05:14)
[2025-05-25 08:00] VITALS: BP 144/74; PULSE 73; RESP 16; TEMP 36.6; O2SAT 96
[2025-05-25] MEDS: DOCUSATE 100 MG CAPSULE PO ×2 (08:54→22:22)
[2025-05-25] MEDS: ENOXAPARIN 40 MG/0.4 ML SYRINGE SUBCUT (08:55)
--- NOTE | 2025-05-25 10:19 | P.PN_ITS ---
Subjective Subjective Interval history: No significant changes from prior days. Pt without any new concerns. Pain remains adequately controlled overall. Exam Vital Signs (past 8 hours): - 05/25/25 08:00 Temperature 97.8 F Pulse Rate 73 Respiratory Rate 16 Blood Pressure 144/74 H Pulse Oximetry 96 Oxygen Flow Rate 0 Oxygen Delivery Method Room Air Oxygen Flow Rate 0 Narrative Exam Narrative: General: NAD, appears well, laying comfortably in bed CV: RRR, no murmurs Resp: CTAB Abd: Soft, NTND, +BS Ext: no edema Objective Labs 05/21/25 05:35 05/22/25 04:00 [facility] Medical History (Updated 05/20/25 @ 18:14 by Biju Garcia MD) Primary osteoarthritis of both knees Environmental allergies Anxiety and depression Easy bruisability Skin cancer Arthritis Osteopenia Osteoarthritis Osteoporosis GERD (gastroesophageal reflux disease) HTN (hypertension) HLD (hyperlipidemia) Tinnitus Hypothyroid Surgical History Hx of vein stripping History of surgery H/O left wrist surgery (~2012) H/O right wrist surgery (~2009) History of right knee joint replacement History of left knee replacement History of surgery Hx of oophorectomy History of hysterectomy Hx of appendectomy History of tonsillectomy and adenoidectomy Hx of bilateral cataract extraction History of bilateral knee replacement Social History household members: none Smoking Status: Never smoker alcohol intake: current Assessment & Plan Assessment and plan (1) Acetabular fracture: Qualifiers: Encounter type: initial encounter Fracture alignment: nondisplaced F racture type: closed Laterality: left Sublocation of acetabulum: anterior column Qualified Code(s): S32.435A - Nondisplaced fracture of anterior column [iliopubic] of left acetabulum, initial encounter for closed fracture Status: Acute (2) Closed fracture of pubic ramus: Qualifiers: Encounter type: initial encounter Laterality: left Qualified Code(s): S32.592A - Other specified fracture of left pubis, initial encounter for closed fracture Status: Acute (3) Hypothyroid: Problem details: 08/02/2023: TSH 0.09, FT4 1.77 Qualifiers: Hypothyroidism type: unspecified Qualified Code(s): E03.9 - Hypothyroidism, unspecified Status: Acute (4) HTN (hypertension): Qualifiers: Hypertension type: primary hypertension Qualified Code(s): I10 - Essential (primary) hypertension Status: Acute (5) Fecal impaction: Status: Acute (6) Stercoral colitis: Status: Acute Assessment & Plan narrative: 79-year-old female with hypertension, hyperlipidemia, hypothyroidism, GERD admitted for complex left pelvic fracture. #complex left pelvic fracture Involving the anterior column of the left acetabulum, the left pubic symphysis, and the left inferior pubic ramus as well as a left-sided sacral insufficiency fracture. Orthopedics consulted and recommend nonoperative approach with pain management and physical therapy. Likely will need SNF for additional recovery on discharge. - Continue inpatient PT. Ortho instructed toe touch weight bearing at this time. - Ibuprofen, acetaminophen PRN - [place] for breakthrough pain - Continue with bowel regimen - Zofran for nausea #Hypothyroid - Continue home Levothyroxine #Hypertension: BP in good range - Continue home Amlodipine #Fecal impaction #Stercoral colitis - Stool softener, enema PRN Dispo: Plan to d/c to SNF. Awaiting insurance authorization. Has placement at [facility]. Diet: regular DVT ppx: lovenox Code: LIMITED (no CPR or intubation) PCP: Jose MDM: Temitope Motta (sister, ) Time-Based Coding :: [TOTAL MINUTES] spent with patient and on the chart (including review of chart, obtaining history, exam, reviewing outside data, placing orders, documenting exam and treatment plan, and counseling patient) on [DATE]. PROFEE Client Professional Document charge(s): Yes Charge Codes Subsequent inpatient/observation care: [id number]
--- NOTE | 2025-05-25 10:31 | PC.NURSE ---
Addendum entered by Franci Christine 05/25/25 12:06: Pt up with therapy to chair, C/O severe 100/10 pain to L hip while in chair after finished with therapy and requesting pain meds. Pt became very anxious and irritable and insisting that PO pain meds will be ineffective and that she just wants to due to severity of pain. Medicated with ibuprofen, [place] and tylenol and repositioned in chair w/ice to L hip area. Pt still very uncomfortable and insisting on returning back to bed, stating she will get up herself, so assisted to stand and pivot back to bed, ice pack re-applied to L hip. Pt asking if family can bring in CBD balm for pain and appeared very relieved when reassured that's fine and after meds had a short time to kick in. Will continue to monitor. Original Note: Pt alert and oriented this morning, states she is feeling much better and less confused. C/O some discomfort from being in bed and hoping to get up to chair this AM with PT or OT. IV fell out overnight according to nightshift, not replaced as no IV meds ordered. Sister Temitope hoping to get update from provider when rounding this morning at .
--- NOTE | 2025-05-25 10:47 | PC.NURSE ---
Addendum entered by Britta Cooley RN 05/25/25 12:16: Patient up with physical therapy to chair. Therapist said that patient was in pain. She was anxious and stating that she was in pain, asking for iv pain medication. This RN and Preceptee gave patient one vicodin, two tylenol, and ibuprofen. She stated that is not going to do anything. Patient has been getting po vicodin 1-2 tabs and she had it this morning and denied 0 pain. Explained to patient that she will be in some pain but the oral pain medication will help to reduce the severity of the discomfort. She was not willing to listen, offered her something for anxiety but patient states that will not help the pain. She was yelling and talking inappropriately to staff, saying that this RN was not being compassionate because she was not getting what she wanted. Explained to patient that we know she hurts and that we are trying to help. Also tried to explain to patient that she will be leaving tomorrow to snf and we usually stay clear of the iv medication as she will not be going with it. Patient was confused yesterday, possibly from iv medications. She stayed in the chair for 15 minutes and then we put her back to bed. She moved just fine with tip toe weight bearing. Asked if she could have some of her lotion for aching muscles, and she was happy to know that she could use this. She stated that she will get herself back up to bed herself if she cannot go now. Explained if she were to do that, she could fall again and hurt herself badly. Patient does not seem to want to listen to staff. She is back to bed now. Original Note: Patient is denies pain, she is toe touch weight bearing on her left side. Patient is using a pure wick to void. She will be discharged to snf tomorrow.
[2025-05-25] MEDS: ACETAMINOPHEN 325 MG TABLET 650 MG PO (11:24)
--- NOTE | 2025-05-25 11:43 | PT.IPTN ---
Current Diagnoses Hypothyroidism, unspecified (05/20/25) Essential (primary) hypertension (05/20/25) Other specified noninfective gastroenteritis and colitis (05/20/25) Fecal impaction (05/20/25) Nondisplaced fracture of anterior column [iliopubic] of left acetabulum, initial encounter for closed fracture (05/20/25) Other specified fracture of left pubis, initial encounter for closed fracture (05/20/25) Physical Therapy Treatment Note M2 PT-IP Current Condition Start: 05/21/25 13:00 Freq: NEEDED Status: Active Protocol: Document 05/25/25 11:29 [facility] (Rec: 05/25/25 11:43 [facility] [id number]) Physical Therapy Current Condition Current Condition Evaluation Date 05/21/25 Treatment Diagnosis Fall, left pelvic and acetabular fx, impaired gait Onset Date 05/20/25 M3 PT-IP Subjective Start: 05/21/25 13:00 Freq: NEEDED Status: Active Protocol: Document 05/25/25 11:29 [facility] (Rec: 05/25/25 11:43 [facility] [id number]) Subjective Physical Therapy Visit Type Type Treatment Note Visit Start Time 10:45 Visit Stop Time 11:15 Physical Therapy Visit Comments Patient Comments pt was in bed when PT came in to treat, she reports she may need to use the commode and agrees to PT. She reports she was very confused yesterday and thought she was at [facility] but today is feeling better Patient Goals Agreeable to going to SNF. Therapy Pain Assessment Pain When Pain Assessed During Mobility Pain Present Pain Present Pain Reported Location left hip Intensity 10 Scale Used 0/10 at rest and 10/10 with mobility Pain Behaviors Facial Grimacing,Wincing Pain Management Apply Cold,Modification of Treatment,Re-positioning Techniques M4 PT-IP Mobility and Gait Start: 05/21/25 13:00 Freq: NEEDED Status: Active Protocol: Document 05/25/25 11:29 [facility] (Rec: 05/25/25 11:43 [facility] [id number]) PT-Bed Mobility Assessment Rolling Type of Rolling Roll to Left Supine to Sit Supine to Sit Moderate Assistance,1 Person Assistance,Head of Bed Elevated,Bedrails Scooting Scooting to Edge of Moderate Assistance Bed PT-Transfer Assessment Sit to and From Stand Sit to and from Contact Guard Assistance,1 Person Assistance Stand Equipment Transfer Assistive Gait Belt,Front Wheeled Walker Device Orthotic/Prosthetic No Devices or Brace: Transfers Transfer Destination Chair,Bedside Commode Transfer Technique TTWB left LE stand step pivot Transfer Ability Level of Assist Minimal Assistance,1 Person Assistance,Use of Upper Extremities Comments Mobility Comments Once pt started transferring her pain levels went up, she was reminded of TTWB left LE and she was able to stand step pivot to bedside commode with Min A. She was in a lot of pain sitting on the commode and was not able to have a bowel movement. She then transferred to standing with CGA and fww and was able to take a few steps to the bed side chair with CGA but needed VC to stay within in her precautions of TTWB Nursing was then contacted as pt was requesting additional pain meds. Ice was placed on left hip. Gait Assessment Gait Gait Assistance Contact Guard Assist,Minimum Assistance,1 Person Assist Required: Distance (Feet) 2 Able to Maintain No Weight Bearing Status During Gait Assistive Devices Assistive Device Gait Belt,Front Wheeled Walker Orthotic/Prosthetic No Devices or Brace: Gait Deviations General Gait Pattern Antalgic,Decreased Stride Length,Decreased Feet Clearance,Flexed Trunk Factors Limiting Gait Function Factors Limiting Decreased Activity Tolerance,Decreased Strength, Gait Function Difficulty Following Directions,Limited Range of Motion ,Pain,Poor Balance,Poor Safety Awareness Comments Gait Comments PT continues to require VC of weight bearing precautions of TTWB. Pain levels high today at a 10 limiting distance with gait PT-Balance Assessment Sitting Balance and Reactions Static Sitting Fair Balance Ability Dynamic Sitting Fair Balance Ability Standing Balance and Reactions Static Standing Fair Balance Ability Dynamic Standing Poor Balance Ability Device Used FWW TTWB L LE M5 PT-IP Objective Assessments Start: 05/21/25 13:00 Freq: NEEDED Status: Active Protocol: Document 05/25/25 11:29 [facility] (Rec: 05/25/25 11:43 [facility] [id number]) Orientation Orientation/Cognition Level of Alertness Alert Orientation Name,Age,Birthday,Month,Date,Year,Day of Week,Place, Situation Language Function No Deficits Noted Ability Safety Awareness Understands Safety Issues Memory Description No Deficits Noted M6 PT-IP Treatment Start: 05/21/25 13:00 Freq: NEEDED Status: Active Protocol: Document 05/25/25 11:29 [facility] (Rec: 05/25/25 11:43 [facility] [id number]) Physical Therapy Treatment Exercises Exercises Heel Slides Education Education Provided Weight Bearing Status,Safety M7 PT-IP Assessment and Plan Start: 05/21/25 13:00 Freq: NEEDED Status: Active Protocol: Document 05/25/25 11:29 [facility] (Rec: 05/25/25 11:43 [facility] [id number]) PT Summary Assessment and Plan Potential Rehabilitation Excellent Potential Status of Condition Evolving at Evaluation Summary Impairments Pain,ROM,Strength,Balance,Coordination,Cognition,Bed Mobility,Transfers,Gait,Activity Tolerance Progress Towards Slow Progress due to Pain,Slow Progress due to Activity Goals Tolerance Assessment Summary Pt Min/Mod A during bed mobility, CGA with sit to stand and CGA with gait but needing vc to remind her of her TTWB status. Continues to C/O high levels of pain today at a 10 Recommending SNF to progression of strength and continued education on maintaining WB precautions of TTWB L LE Goals Bed Mobility Goal Independent Transfer Goal Independent,Front Wheeled Walker Gait Goal Independent,Front Wheel Walker Gait Distance 50 feet Other Goals up/down 2 steps with bilateral rails and SBA Days to Meet Goals 10 Frequency of Treatment Frequency Of Once a Day Treatment Treatment Plan Physical Therapy Bed Mobility Training,Transfer Training,Gait Training, Treatment Plan Therapeutic Exercise Other remind pt of her TTWB precautions L LE Recommendations and Next Treatment Focus Weight Bearing Status Weight Bearing Touch Down Weight Bearing Status Recommendations To Nursing Amount of Assist 1 Person Assist Needed Discharge Recommendations PT Discharge SNF Rehab Recommendations Transportation Needs Wheelchair/Cabulance at Discharge - PT assist 0
--- NOTE | 2025-05-25 15:30 | CM.DPC ---
DCP SNF Cont: Per MD, pt medically stable to d/c to SNF once auth obtained. SW confirmed with admissions at [facility] that auth was submitted but insurance closed this weekend and will have to wait for determination tomorrow 05/26/25. Return call from [facility] confirming they had recieved the referral but are not contracted with pt's insurance. PASRR done. CHEPE Pan
[2025-05-25 19:00] VITALS: BP 155/95; PULSE 78; RESP 16; TEMP 36.1; O2SAT 99
[2025-05-25] MEDS: NEOMYCIN/POLYMYXIN/BACITRA UD OINT 1 EACH TOP (22:22)
[2025-05-25] MEDS: FAMOTIDINE 20 MG TABLET PO (22:22)
[2025-05-26] MEDS: IBUPROFEN 600 MG TABLET PO ×4 (01:12→17:23)
[2025-05-26] MEDS: LEVOTHYROXINE 137 MCG TABLET PO (06:45)
--- NOTE | 2025-05-26 07:41 | PM.DS.IH.1 ---
History of Present Illness History of Present Illness Date Patient Seen: 05/26/25 Chief complaint: Slid off couch last nigh, 0 thinners Discharge Providers Provider Date of admission: 05/20/25 15:32 Discharge Date: 05/26/25 Primary care physician: Biju Garcia MD Consults: 05/20/25 18:02 Consult to Discharge Planning Routine Comment: Consult to Physical Therapy Evaluate & Treat Comment: Physician Instructions: Evaluate and Treat 05/21/25 09:09 Consult to Occupational Therapy Evaluate & Treat Comment: Physician Instructions: Evaluate and treat Discharge provider: Emilia Minor MD Exam Vital Signs (past 8 hours): Oxygen Delivery Method Room Air Oxygen Flow Rate 0 Objective Labs 05/21/25 05:35 05/22/25 04:00 [facility] Medical History (Updated 05/20/25 @ 18:14 by Biju Garcia MD) Primary osteoarthritis of both knees Environmental allergies Anxiety and depression Easy bruisability Skin cancer Arthritis Osteopenia Osteoarthritis Osteoporosis GERD (gastroesophageal reflux disease) HTN (hypertension) HLD (hyperlipidemia) Tinnitus Hypothyroid Surgical History Hx of vein stripping History of surgery H/O left wrist surgery (~2012) H/O right wrist surgery (~2009) History of right knee joint replacement History of left knee replacement History of surgery Hx of oophorectomy History of hysterectomy Hx of appendectomy History of tonsillectomy and adenoidectomy Hx of bilateral cataract extraction History of bilateral knee replacement Social History household members: none Smoking Status: Never smoker alcohol intake: current Discharge Plan Discharge Plan Patient Disposition: SNF Transfer to: [facility] Discharge orders & Medications Prescriptions: New acetaminophen 325 mg Tablet 650 mg PO Q6H PRN (Reason: Fever/Mild Pain (1-3)) Qty: 60 0RF hydrocodone-acetaminophen 5-325 mg Tablet 1 tab PO Q4H PRN (Reason: Pain, Moderate (4-6)) Qty: 20 0RF magnesium hydroxide [Milk of Magnesia] 400 mg/5 mL Suspension 30 ml PO DAILY PRN (Reason: Constipation) Qty: 60 0RF docusate sodium 100 mg Capsule 100 mg PO BID Qty: 60 0RF ibuprofen 600 mg Tablet 600 mg PO Q6H Qty: 60 0RF Continued fluocinonide 0.05 % cream 1 applic topical BID PRN (Reason: rash) Qty: 30 0RF albuterol sulfate 90 mcg/actuation HFA aerosol inhaler 1 puff INHALATION Q4-6H PRN (Reason: Shortness Of Breath) Qty: 8.5 3RF DHEA, TEST, PROG See Rx Instructions .ROUTE .COMPLEX Qty: 45 3RF Rx Instructions: DHEA/testosterone/progesterone 50mg/5mg/25mg per gram of cream, apply 1 pump (0.5g) topically to rotating sites 5 out of 7 days per week. 45g total (90 days), 0.5g blue pump. levothyroxine [Synthroid] 137 mcg tablet 137 mcg PO DAILY Qty: 90 1RF (DME) Disabled Parking Permit See Rx Instructions .ROUTE .MEDSUPPLY Qty: 1 0RF Rx Instructions: I find this person to be disabled amlodipine 5 mg tablet 5 mg PO QPM multivitamin Tablet 1 tab PO DAILY ascorbic acid (vitamin C) [Vitamin C] 1,000 mg Tablet 1,000 mg PO DAILY cholecalciferol (vitamin D3) [Vitamin D3] 10 mcg (400 unit) Capsule 10 mcg PO DAILY bacitracin 500 unit/gram ointment 1 applic topical Q8H Qty: 14 0RF famotidine [Pepcid] 20 mg tablet 20 mg PO BID Qty: 10 0RF Follow up/Referrals: Biju Garcia MD [Primary Care Provider, Family Practice] Diet/Activity/Treatments Diet: Diet as Tolerated and Regular [facility] Rehab type: Physical therapy and Occupational therapy Visit Report/Discharge Packet Stand Alone Forms: Patient Portal/API Discharge Data Primary Care Provider: Biju Garcia
[2025-05-26 08:00] VITALS: BP 153/85; PULSE 85; RESP 18; TEMP 36.7; O2SAT 96
[2025-05-26] MEDS: NEOMYCIN/POLYMYXIN/BACITRA UD OINT 1 EACH TOP ×2 (08:17→21:11)
[2025-05-26] MEDS: DOCUSATE 100 MG CAPSULE PO ×2 (08:18→21:11)
[2025-05-26] MEDS: ENOXAPARIN 40 MG/0.4 ML SYRINGE SUBCUT (08:18)
--- NOTE | 2025-05-26 08:45 | CM.DPC ---
Addendum entered by CHEPE Pan 05/26/25 15:53: ADD: Call from MD stating pt had uncontrolled pain this AM with 10/10 pain and needed dose of IV pain medications. Will attempt to manage pt on po meds so that she can go to SNF tomorrow once auth obtained. BF Original Note: DCP Discharge to SNF Per MD, pt remains medically stable to d/c to SNF today once [place] auth obtained for SNF, signed med list and printed script and readied pt's plan for discharge. SW updated admissions at [facility] and faxed all the clinicals again to submit again to insurance for auth now that they are open again for review. CHEPE Pan
--- NOTE | 2025-05-26 11:19 | PT.IPTN ---
Current Diagnoses Hypothyroidism, unspecified (05/20/25) Essential (primary) hypertension (05/20/25) Other specified noninfective gastroenteritis and colitis (05/20/25) Fecal impaction (05/20/25) Nondisplaced fracture of anterior column [iliopubic] of left acetabulum, initial encounter for closed fracture (05/20/25) Other specified fracture of left pubis, initial encounter for closed fracture (05/20/25) Physical Therapy Treatment Note M2 PT-IP Current Condition Start: 05/21/25 13:00 Freq: NEEDED Status: Active Protocol: Document 05/25/25 11:29 [facility] (Rec: 05/25/25 11:43 [facility] [id number]) Physical Therapy Current Condition Current Condition Evaluation Date 05/21/25 Treatment Diagnosis Fall, left pelvic and acetabular fx, impaired gait Onset Date 05/20/25 M3 PT-IP Subjective Start: 05/21/25 13:00 Freq: NEEDED Status: Active Protocol: Document 05/26/25 10:55 [facility] (Rec: 05/26/25 11:30 [facility] [id number]) Subjective Physical Therapy Visit Type Type Treatment Note Visit Start Time 10:55 Visit Stop Time 11:19 Number of PSYCH NURSE Visits 0 Physical Therapy Visit Comments Patient Comments Pt seated in recliner with call light on when therapist entered the room. Pt complaining of discomfort in recliner, my butt really hurts, and desires return to bed. Also exhibits some confusion about her current situation, asking what her IV is for, what's all this, but then when informed, states well I know that, I just don't know what's going on, no one has been by in a while. Therapy Pain Assessment Location left hip Intensity 6 Scale Used Numeric (0 - 10) Description With Movement Pain Behaviors Facial Grimacing,Wincing Pain Management Re-positioning Techniques M4 PT-IP Mobility and Gait Start: 05/21/25 13:00 Freq: NEEDED Status: Active Protocol: Document 05/26/25 10:55 [facility] (Rec: 05/26/25 11:30 [facility] [id number]) PT-Bed Mobility Assessment Sit to Supine Sit to Supine Minimal Assistance,1 Person Assistance PT-Transfer Assessment Sit to and From Stand Sit to and from Contact Guard Assistance,1 Person Assistance Stand Equipment Transfer Assistive Gait Belt,Front Wheeled Walker Device Orthotic/Prosthetic No Devices or Brace: Transfers Transfer Destination Bed,Chair Transfer Technique TTWB left LE stand step pivot Transfer Ability Level of Assist Contact Guard Assistance,Minimal Assistance,1 Person Assistance,Use of Upper Extremities Comments Mobility Comments Pt began in recliner, able to transfer sit->stand using arm rests and FWW CGA-Min Ax1, VCs to push from arm rest. Gait Assessment Gait Gait Assistance Contact Guard Assist,1 Person Assist Required: Distance (Feet) 3 Able to Maintain No Weight Bearing Status During Gait Assistive Devices Assistive Device Gait Belt,Front Wheeled Walker Orthotic/Prosthetic No Devices or Brace: Gait Deviations General Gait Pattern Antalgic,Decreased Stride Length,Decreased Feet Clearance,Flexed Trunk Factors Limiting Gait Function Factors Limiting Decreased Activity Tolerance,Decreased Strength, Gait Function Difficulty Following Directions,Limited Range of Motion ,Pain,Poor Balance,Poor Safety Awareness Comments Gait Comments Reminder of TTWB status prior to getting up, then pt able to perform with no further VCs. TTWB on LE step- pivot transfer to bed M5 PT-IP Objective Assessments Start: 05/21/25 13:00 Freq: NEEDED Status: Active Protocol: Document 05/25/25 11:29 [facility] (Rec: 05/25/25 11:43 [facility] [id number]) Orientation Orientation/Cognition Level of Alertness Alert Orientation Name,Age,Birthday,Month,Date,Year,Day of Week,Place, Situation Language Function No Deficits Noted Ability Safety Awareness Understands Safety Issues Memory Description No Deficits Noted M6 PT-IP Treatment Start: 05/21/25 13:00 Freq: NEEDED Status: Active Protocol: Document 05/26/25 10:55 [facility] (Rec: 05/26/25 11:30 [facility] [id number]) Physical Therapy Treatment Exercises Exercises Ankle Pumps Equipment Issued Equipment Type and Supine hip adduction Company M7 PT-IP Assessment and Plan Start: 05/21/25 13:00 Freq: NEEDED Status: Active Protocol: Document 05/26/25 10:55 [facility] (Rec: 05/26/25 11:30 [facility] [id number]) PT Summary Assessment and Plan Summary Impairments Pain,ROM,Strength,Balance,Coordination,Cognition,Bed Mobility,Transfers,Gait,Activity Tolerance Progress Towards Slow Progress due to Pain,Slow Progress due to Activity Goals Tolerance Assessment Summary Pt improving with her TTWB and step-pivot transfers, only one reminder of weight-bearing status prior to standing, pt remained in TTWB with the entire transfer. Did require assistance getting left LE into bed during sit->supine transfer, as well as Min Ax1 adjusting in bed. Pt left in bed with call portillo and yuki table within reach. Nursing notified of pt confusion. Continue to expect discharge to SNF. Goals Bed Mobility Goal Independent Transfer Goal Independent,Front Wheeled Walker Gait Goal Independent,Front Wheel Walker Gait Distance 50 feet Other Goals up/down 2 steps with bilateral rails and SBA Days to Meet Goals 10 Frequency of Treatment Frequency Of Once a Day Treatment Treatment Plan Physical Therapy Bed Mobility Training,Transfer Training,Gait Training, Treatment Plan Therapeutic Exercise Other remind pt of her TTWB precautions L LE Recommendations and Next Treatment Focus Precautions Other Precautions TTWB LLE as of 05/23/25: fx left acetabulum, left pubic rami and left pubic symphysis Orthostatic hypotension getting up Weight Bearing Status Weight Bearing Touch Down Weight Bearing Status Recommendations To Nursing Amount of Assist 1 Person Assist Needed Discharge Recommendations PT Discharge SNF Rehab Recommendations Transportation Needs Wheelchair/Cabulance at Discharge
--- NOTE | 2025-05-26 12:38 | DIET.CONS2 ---
Dietary Inpatient Consultation Note Admission Date: 05/20/2025 15:32 79 y F admitted for hip fracture. Dietitian screened for LOS. EMR reviewed. 60-75% PO intakes. DFM reviewed for adequacy. No significant weight loss. Weight 68 kg on 01/13/25, 66 kg on 07/03/24, 68 kg on 04/25/25. MNA score 14. Pt to d/c today. No nutritional interventions needed. F/u PRN. Diet: 05/20/25 Dinner General (Regular) Diet Diet Modifications: Nutrition Percent Meal Consumed 75% 05/25/25 18:36 Percent Meal Consumed 75% 05/25/25 16:15 Electronically Signed by: Cassie Cutler 05/26/25 12:38 Clinical Dietitian [address] [address]
--- NOTE | 2025-05-26 13:24 | PC.NURSE ---
This RN noticed patient picking at R AC area. At site of previous PIV, noted redness and small scab with potential purulent drainage. Pt unable to specify when PIV came out. Was not able to find in bedsheets. Covered spot with gauze and tegaderm so that patient doesn't pick at it; pt reports no pain. Notified MD Minor; no new orders at this time.
--- NOTE | 2025-05-26 15:12 | P.PN_ITS ---
Subjective Subjective Interval history: This morning the pt reported that her pain remained stable. She had no specific concerns, and was feeling ready to discharge. Later this morning, contacted by nursing that the pt was in severe pain not responsive to Derby. They had replaced her IV and given her IV dilaudid with good relief. Exam Vital Signs (past 8 hours): - 05/26/25 08:00 Temperature 98.1 F Pulse Rate 85 Respiratory Rate 18 Blood Pressure 153/85 H Pulse Oximetry 96 Oxygen Flow Rate 0 Oxygen Delivery Method Room Air Oxygen Flow Rate 0 Narrative Exam Narrative: General: NAD, appears well, laying comfortably in bed CV: RRR, no murmurs Resp: CTAB Abd: Soft, NTND, +BS Ext: no edema Objective Labs 05/21/25 05:35 05/22/25 04:00 COUNT INCLUDES THE [facility] Medical History (Updated 05/20/25 @ 18:14 by Biju Garcia MD) Primary osteoarthritis of both knees Environmental allergies Anxiety and depression Easy bruisability Skin cancer Arthritis Osteopenia Osteoarthritis Osteoporosis GERD (gastroesophageal reflux disease) HTN (hypertension) HLD (hyperlipidemia) Tinnitus Hypothyroid Surgical History Hx of vein stripping History of surgery H/O left wrist surgery (~2012) H/O right wrist surgery (~2009) History of right knee joint replacement History of left knee replacement History of surgery Hx of oophorectomy History of hysterectomy Hx of appendectomy History of tonsillectomy and adenoidectomy Hx of bilateral cataract extraction History of bilateral knee replacement Social History household members: none Smoking Status: Never smoker alcohol intake: current Assessment & Plan Assessment and plan (1) Acetabular fracture: Qualifiers: Encounter type: initial encounter Fracture alignment: nondisplaced F racture type: closed Laterality: left Sublocation of acetabulum: anterior column Qualified Code(s): S32.435A - Nondisplaced fracture of anterior column [iliopubic] of left acetabulum, initial encounter for closed fracture Status: Acute (2) Closed fracture of pubic ramus: Qualifiers: Encounter type: initial encounter Laterality: left Qualified Code(s): S32.592A - Other specified fracture of left pubis, initial encounter for closed fracture Status: Acute (3) Hypothyroid: Problem details: 08/02/2023: TSH 0.09, FT4 1.77 Qualifiers: Hypothyroidism type: unspecified Qualified Code(s): E03.9 - Hypothyroidism, unspecified Status: Acute (4) HTN (hypertension): Qualifiers: Hypertension type: primary hypertension Qualified Code(s): I10 - Essential (primary) hypertension Status: Acute (5) Fecal impaction: Status: Acute (6) Stercoral colitis: Status: Acute Assessment & Plan narrative: 79-year-old female with hypertension, hyperlipidemia, hypothyroidism, GERD admitted for complex left pelvic fracture. #complex left pelvic fracture Involving the anterior column of the left acetabulum, the left pubic symphysis, and the left inferior pubic ramus as well as a left-sided sacral insufficiency fracture. Orthopedics consulted and recommend nonoperative approach with pain management and physical therapy. Plan to d/c to SNF. - Continue inpatient PT. Ortho instructed toe touch weight bearing at this time. - Ibuprofen, acetaminophen PRN - Derby for breakthrough pain - Will try to avoid IV narcotics in the future - can escalate PO options if needed - Continue with bowel regimen - Zofran for nausea #Hypothyroid - Continue home Levothyroxine #Hypertension: BP in good range - Continue home Amlodipine #Fecal impaction #Stercoral colitis - Stool softener, enema PRN Dispo: Plan to d/c to SNF. Has placement at [facility]. Due to IV pain meds today, will plan to d/c tomorrow. Meds signed for already, etc. Diet: regular DVT ppx: lovenox Code: LIMITED (no CPR or intubation) PCP: Jose MDM: Temitope Motta (sister, ) Time-Based Coding :: [TOTAL MINUTES] spent with patient and on the chart (including review of chart, obtaining history, exam, reviewing outside data, placing orders, documenting exam and treatment plan, and counseling patient) on [DATE]. [employer] Document charge(s): Yes Charge Codes Subsequent inpatient/observation care: [id number]
[2025-05-26] MEDS: ONDANSETRON 4 MG ODT PO (16:17)
[2025-05-26 20:00] VITALS: BP 135/73; PULSE 77; RESP 18; TEMP 36.6; O2SAT 93
[2025-05-26] MEDS: FAMOTIDINE 20 MG TABLET PO (21:11)
[2025-05-26] MEDS: SODIUM CHLORIDE 0.9% FLUSH 10 ML IV (21:11)
[2025-05-27] MEDS: BACITRACIN OINT 0.9 GM PCKT 1 APPLIC TOP ×2 (00:55→09:53)
[2025-05-27] MEDS: IBUPROFEN 600 MG TABLET PO ×2 (00:55→06:29)
--- NOTE | 2025-05-27 01:23 | PC.NURSE ---
Patient is alert and mostly oriented except did not know month or day of month; can be forgetful as well. Breath sounds CTA with RA sat of 93%. HRR. Denies nausea. BT present and is passing flatus. Voiding without dysuria per patient. Is assisted to BSC using walker and 1 assist; TTWB on left. Is able to turn herself in bed. Declined use of SCD's stating she is unable to sleep with them on. Does complain of left hip pain and has been medicated with Vicodin as well as scheduled Ibuprofen after which she is able to sleep. Fall risk score is high and bed alarm is activated.
[2025-05-27] MEDS: LEVOTHYROXINE 137 MCG TABLET PO (06:09)
[2025-05-27 07:00] VITALS: BP 103/55; PULSE 68; RESP 16; TEMP 36.2; O2SAT 94
--- NOTE | 2025-05-27 08:00 | PM.DS.IH.1 ---
History of Present Illness History of Present Illness Date Patient Seen: 05/27/25 Chief complaint: Slid off couch last nigh, 0 thinners Narrative: 79-year-old female with hypertension, hyperlipidemia, hypothyroidism. Patient brought in by EMS after being found on the ground by her mail man. Apparently she slid off the couch and was unable to get up on her own. Noted to have soiled and urinated on self. Denies fever, chills, nausea/vomiting, headache, vision change, LOC. ER evaluation notable for WBC 15.1 with left shift, glucose 179, AST 54, mildly elevated lactate 2.3 which normalized on repeat. Remainder of CBC, CMP, lipase without significant derangements, troponin negative x2. UA with 3+ ketones, no evidence of infection. XR hip negative for fracture, however patient was unable to ambulate. Subsequent CT pelvis showed multiple left-sided fractures involving the anterior column of the left acetabulum, left pubic symphysis, left inferior pubic ramus. Additionally there is a left-sided sacral insufficiency fracture. No hip dislocation. Orthopedics consulted from ER and deemed nonsurgical, recommend pain control and physical therapy. Discharge Providers Provider Date of admission: 05/20/25 15:32 Discharge Date: 05/27/25 Primary care physician: Biju Garcia MD Consults: 05/20/25 18:02 Consult to Discharge Planning Routine Comment: Consult to Physical Therapy Evaluate & Treat Comment: Physician Instructions: Evaluate and Treat 05/21/25 09:09 Consult to Occupational Therapy Evaluate & Treat Comment: Physician Instructions: Evaluate and treat 05/26/25 12:04 Consult to Pharmacy Routine Comment: Recent fall Discharge provider: Biju Garcia MD Summary Hospital Course Discharge Diagnosis: #complex left pelvic fracture #hypothyroid #hypertension #fecal impaction #stercoral colitis Hospital Course: Admitted 05/20 for complex left pelvic fracture and pain control. Due to unfortunate timing just prior to patient remained hospitalized for 7 days before insurance authorization was received in order to discharge to SNF for additional PT and recovery. At time of discharge pain was adequately controlled with oral medication. Status at Discharge Cognitive/behavioral status at discharge: oriented Functional status at discharge: uses cane/walker Overall status at discharge: patient is progressing back to baseline Time Spent with Patient Time spent: Less than 30 minutes Exam Vital Signs (past 8 hours): - 05/27/25 01:12 Oxygen Delivery Method Room Air Oxygen Delivery Method Room Air Oxygen Flow Rate 0 Narrative Exam Narrative: General: NAD, appears well, laying comfortably in bed CV: RRR, no murmurs Resp: CTAB Abd: Soft, NTND, +BS Ext: No edema Objective Labs 05/21/25 05:35 05/22/25 04:00 [facility] Medical History (Updated 05/20/25 @ 18:14 by Biju Garcia MD) Primary osteoarthritis of both knees Environmental allergies Anxiety and depression Easy bruisability Skin cancer Arthritis Osteopenia Osteoarthritis Osteoporosis GERD (gastroesophageal reflux disease) HTN (hypertension) HLD (hyperlipidemia) Tinnitus Hypothyroid Surgical History Hx of vein stripping History of surgery H/O left wrist surgery (~2012) H/O right wrist surgery (~2009) History of right knee joint replacement History of left knee replacement History of surgery Hx of oophorectomy History of hysterectomy Hx of appendectomy History of tonsillectomy and adenoidectomy Hx of bilateral cataract extraction History of bilateral knee replacement Social History household members: none Smoking Status: Never smoker alcohol intake: current Discharge Assessment & Plan Assessment and Plan Assessment: 79-year-old female with hypertension, hyperlipidemia, hypothyroidism, GERD admitted for complex left pelvic fracture. Plan of Treatment: #complex left pelvic fracture Involving the anterior column of the left acetabulum, the left pubic symphysis, and the left inferior pubic ramus as well as a left-sided sacral insufficiency fracture. Orthopedics consulted and recommend nonoperative approach with pain management and physical therapy. Plan to d/c to SNF. - Continue PT. Ortho instructed toe touch weight bearing at this time. - Ibuprofen, acetaminophen PRN - [place] for breakthrough pain - Continue bowel regimen - Zofran for nausea #Hypothyroid - Continue home levothyroxine #Hypertension: BP in good range - Continue home amlodipine #Fecal impaction #Stercoral colitis - Stool softener, enema PRN Discharge Plan Discharge Plan Patient Disposition: SNF Transfer to: [facility], [facility] Discharge orders & Medications Prescriptions: New acetaminophen 325 mg Tablet 650 mg PO Q6H PRN (Reason: Fever/Mild Pain (1-3)) Qty: 60 0RF hydrocodone-acetaminophen 5-325 mg Tablet 1 tab PO Q4H PRN (Reason: Pain, Moderate (4-6)) Qty: 20 0RF magnesium hydroxide [Milk of Magnesia] 400 mg/5 mL Suspension 30 ml PO DAILY PRN (Reason: Constipation) Qty: 60 0RF docusate sodium 100 mg Capsule 100 mg PO BID Qty: 60 0RF ibuprofen 600 mg Tablet 600 mg PO Q6H Qty: 60 0RF Continued fluocinonide 0.05 % cream 1 applic topical BID PRN (Reason: rash) Qty: 30 0RF albuterol sulfate 90 mcg/actuation HFA aerosol inhaler 1 puff INHALATION Q4-6H PRN (Reason: Shortness Of Breath) Qty: 8.5 3RF DHEA, TEST, PROG See Rx Instructions .ROUTE .COMPLEX Qty: 45 3RF Rx Instructions: DHEA/testosterone/progesterone 50mg/5mg/25mg per gram of cream, apply 1 pump (0.5g) topically to rotating sites 5 out of 7 days per week. 45g total (90 days), 0.5g blue pump. levothyroxine [Synthroid] 137 mcg tablet 137 mcg PO DAILY Qty: 90 1RF (DME) Disabled Parking Permit See Rx Instructions .ROUTE .MEDSUPPLY Qty: 1 0RF Rx Instructions: I find this person to be disabled amlodipine 5 mg tablet 5 mg PO QPM multivitamin Tablet 1 tab PO DAILY ascorbic acid (vitamin C) [Vitamin C] 1,000 mg Tablet 1,000 mg PO DAILY cholecalciferol (vitamin D3) [Vitamin D3] 10 mcg (400 unit) Capsule 10 mcg PO DAILY bacitracin 500 unit/gram ointment 1 applic topical Q8H Qty: 14 0RF famotidine [Pepcid] 20 mg tablet 20 mg PO BID Qty: 10 0RF Follow up/Referrals: Biju Garcia MD [Primary Care Provider, Family Practice] Diet/Activity/Treatments Diet: Diet as Tolerated and Regular Special Rehabilitation Services Reason for rehabilitation: Recovery r/t decondition Rehab type: Physical therapy and Occupational therapy Restrictions to mobility: WBAT Visit Report/Discharge Packet Stand Alone Forms: Patient Portal/API Discharge Data Primary Care Provider: Biju Garcia Discharges patient from system. Discharge Date/Time: 05/27/25 11:44 PROFEE Charge Codes Discharge inpatient/observation: [id number]
[2025-05-27] MEDS: DOCUSATE 100 MG CAPSULE PO (09:51)
[2025-05-27] MEDS: ENOXAPARIN 40 MG/0.4 ML SYRINGE SUBCUT (09:52)
[2025-05-27] MEDS: NEOMYCIN/POLYMYXIN/BACITRA UD OINT 1 EACH TOP (09:53)
[2025-05-27] MEDS: SODIUM CHLORIDE 0.9% FLUSH 10 ML IV (09:53)
--- NOTE | 2025-05-27 11:06 | CM.DPNOTE ---
DCP Continued: Reviewed EMR and team rounds for pt?s medical status. Per Provider, pt cleared for discharge to SNF today, signed med list and provided paper Rx. WATER PURIFICATION CHEMIST spoke with [facility] Admissions who states pt has received authorization by insurance for SNF admission. WATER PURIFICATION CHEMIST sent discharge summary, orders, signed med list, PASRR, Rx, and 7-Day MAR to Admissions via secure email. [facility] requests BLS transport for pt due to pain on movement, requests pt to arrive before 1300. WATER PURIFICATION CHEMIST faxed hosp exempt PASRR to PASRR coordinator for review per request of [facility] Admissions. WATER PURIFICATION CHEMIST called [facility] and coordinated BLS transport for patient from Acute Care at 1130, to arrive at facility at 1230. BLS med necessity form completed and provided in discharge packet. WATER PURIFICATION CHEMIST notified MADELYN KISER, pt RN, [facility]. WATER PURIFICATION CHEMIST left a voice message for pt sister, Temitope, who is requesting update of pt discharge plans. Plan: Anticipating discharge to [facility] via [facility] BLS transport at 1130. CM Team will continue to follow for coordination of discharge plans. SUMAYA BlancoSW
--- NOTE | 2025-05-27 11:41 | PC.NURSE ---
Pt is packed up and ready for transfer to [facility] [place]. IV has been removed. Called report to Awilda at [facility] and answered all questions. Pt out via stretcher by Ambulance personnel with all belongings.
== END 2025-05-27 11:44 | DRG 536 ==
LOC: ED 15:17 → AC 15:33
PROVIDERS: Admitting Provider Family Medicine; Emergency Provider Family Medicine; Family Provider Family Medicine; PCP Family Medicine; Referring Provider Family Medicine; Visit Provider Family Medicine
DX: S32.432A Displaced fracture of anterior column [iliopubic] of left acetabulum, initial encounter for closed fracture (principal); S32.10XA Unspecified fracture of sacrum, initial encounter for closed fracture; S32.592A Other specified fracture of left pubis, initial encounter for closed fracture; E03.9 Hypothyroidism, unspecified; I10 Essential (primary) hypertension; K56.41 Fecal impaction; K52.89 Other specified noninfective gastroenteritis and colitis; S51.012A Laceration without foreign body of left elbow, initial encounter; K21.9 Gastro-esophageal reflux disease without esophagitis; W08.XXXA Fall from other furniture, initial encounter; Z79.890 Hormone replacement therapy; Z23 Encounter for immunization
CPT/HCPCS: 12001; 36415; 71045; 72170; 72192; 73080; 80048; 80053; 81003; 81015; 83605; 83690; 83735; 83880; 84484; 85025; 87040; 90471; 93005; 96361; 96374; 97110; 97116; 97162; 97167; 97530; 99284; 90715; A9270; J1171; J1650; J2470; J7120